=== PATIENT | male | born 1960 | race Caucasian/White ===

== ENCOUNTER 2019-02-03 11:22 | Inpatient (IN) | payer BC, OTHER ==
[~2019-02-03] VITALS: Ht 185.4 cm; Wt 113.7 kg
[2019-02-03] VITALS (11 sets, daily range): BP systolic 80–95; BP diastolic 52–70
[~2019-02-03 11:22] MED LIST: ETOMIDATE IV SOLN 20 MG/10 ML VIAL IV ONE; MIDAZOLAM 5 MG/5 ML (VERSED) VIAL IJ ONE; SUCCINYLCHOLINE INJ 100 MG/5 ML SYR INJ ONE
[2019-02-03] MEDS ORDERED: NS IV 1000 ML 1,000 ML ONE (11:43)
[2019-02-03 11:59] LABS: BASOPHILS % (AUTO) 0 % (0-10); EOSINOPHILS % (AUTO) 0 % (0-10); HEMATOCRIT 47 % (40-54); HEMOGLOBIN 15.9 G/DL (13.3-17.7); LYMPHOCYTES % (AUTO) 21 % (12-44); MEAN CORPUSCULAR HEMOGLOBIN 30 PG (25-34); MEAN CORPUSCULAR HGB CONC 34 G/DL (32-36); MEAN CORPUSCULAR VOLUME 87 FL (80-99); MEAN PLATELET VOLUME 10.9 FL (7.4-10.4); MONOCYTES % (AUTO) 9 % (0-12); NEUTROPHILS # (AUTO) 6.6 X 10^3 (1.8-7.8); NEUTROPHILS % (AUTO) 70 % (42-75); PLATELET COUNT 137 10^3/uL (130-400); RED CELL DISTRIBUTION WIDTH 14.1 % (10.0-14.5); WHITE BLOOD COUNT 9.5 10^3/uL (4.3-11.0)
[2019-02-03 12:00] LABS: MONOCYTES # (AUTO) 0.8 X 10^3 (0.0-1.0)
[2019-02-03] MEDS ORDERED: LORazepam INJ 2 MG/ML (ATIVAN) VIAL ONE (12:03)
--- NOTE | 2019-02-03 12:08 | ED General ---
General Chief Complaint: Neurological Problems Stated Complaint: SEIZURE Source of Information: Patient Exam Limitations: No Limitations History of Present Illness Date Seen by Provider: Feb 03, 2019 Time Seen by Provider: 12:05 Initial Comments The patient is a 58-year-old male accompanied by his son here for evaluation of seizure-like activity at home. The patient's son reports that he stated that he felt nauseous and then his arms curled up and he started to shake for about 60- 90 seconds. He fell to the floor gently and then came to very quickly and said that he was tired and wanted to sleep. There is no obvious postictal phase. The patient has no history of seizures. He does report heavy alcohol use but states it is not daily and the last time he drank was over the weekend 4 days ago. On arrival he is noted to be very tachycardic and hypoxic. He is placed on oxygen and monitors. He denies any history of pulmonary or cardiac problems. He does report a history of diabetes. He is alert, anxious, but appears to be in no distress at this time. He denies fevers or chills, chest pain, headache, vision changes, focal weakness or numbness, abdominal or back pain, rash, neck pain or stiffness, light sensitivity, recent head injury, or syncope. Timing/Duration: 1 Hour Severity: Moderate Allergies and Home Medications Allergies Coded Allergies: No Known Drug Allergies (Unverified , 02/03/19) Patient Home Medication List Home Medication List Reviewed: Yes Review of Systems Review of Systems Constitutional: no symptoms reported EENTM: no symptoms reported Respiratory: no symptoms reported Cardiovascular: no symptoms reported Gastrointestinal: no symptoms reported Genitourinary: no symptoms reported Musculoskeletal: no symptoms reported Skin: no symptoms reported Psychiatric/Neurological: Anxiety, Other (seizure-like activity) Hematologic/Lymphatic: No Symptoms Reported Immunological/Allergic: no symptoms reported All Other Systems Reviewed Negative Unless Noted: Yes Past Dofyasb-Iapxzq-Gncpzm Hx Past Med/Social Hx: Reviewed Nursing Past Med/Soc Hx Physical Exam Vital Signs Vital Signs - First Documented 02/03/19 11:45 Temp 100.2 Pulse 138 Resp 22 B/P (MAP) 185/93 (123) Pulse Ox 92 O2 Flow Rate 3.00 Capillary Refill : Height, Weight, BMI Height: '" Weight: lbs. oz. kg; BMI Method: General Appearance: No Apparent Distress, WD/WN, Anxious HEENT: PERRL/EOMI, TMs Normal, Normal ENT Inspection, Pharynx Normal Neck: Full Range of Motion, Non Tender, Supple Respiratory: Chest Non Tender, Lungs Clear, Normal Breath Sounds, No Accessory Muscle Use, No Respiratory Distress Cardiovascular: Regular Rate, Rhythm, No Edema, No Murmur, Tachycardia Gastrointestinal: Normal Bowel Sounds, No Pulsatile Mass, Non Tender Back: Normal Inspection, No CVA Tenderness, No Vertebral Tenderness Extremity: Normal Capillary Refill, Normal Inspection, Normal Range of Motion, Non Tender, No Pedal Edema Neurologic/Psychiatric: Alert, Oriented x3, No Motor/Sensory Deficits, Normal Mood/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, 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 Norm as Tested, Other (appears anxious and jittery) Skin: Normal Color, Warm/Dry Focused Exam Lactate Level 02/03/19 12:00: Lactic Acid Level 1.79 Lactic Acid Level Laboratory Tests Test 02/03/19 12:00 Lactic Acid Level 1.79 MMOL/L (0.50-2.00) Procedures/Interventions Date of ETT Placement: Feb 03, 2019 Time of ETT Placement: 14:35 Intubation Method: orotracheal Tube Size: 7.5 Medications: Etomidate, Succinylcholine Positive End Tide CO2: Yes Breath Sounds after Intubation: bilateral-equal Intubation Complications: no complications Post Intubation Xray: Yes Progress/Results/Core Measures Suspected Sepsis SIRS Temperature: Pulse: Respiratory Rate: Laboratory Tests 02/03/19 11:46: White Blood Count 9.5 Blood Pressure / Mean: 02/03/19 12:00: Lactic Acid Level 1.79 Laboratory Tests 02/03/19 11:46: Creatinine 0.82, Platelet Count 137, Total Bilirubin 0.9 Results/Orders Lab Results Laboratory Tests Test 02/03/19 11:38 02/03/19 11:46 02/03/19 12:00 02/03/19 12:37 Range/Units Glucometer 245 H 70-110 MG/DL White Blood Count 9.5 4.3-11.0 10^3/uL Red Blood Count 5.34 4.35-5.85 10^6/uL Hemoglobin 15.9 13.3-17.7 G/DL Hematocrit 47 40-54 % Mean Corpuscular Volume 87 80-99 FL Mean Corpuscular Hemoglobin 30 25-34 PG Mean Corpuscular Hemoglobin Concent 34 32-36 G/DL Red Cell Distribution Width 14.1 10.0-14.5 % Platelet Count 137 130-400 10^3/uL Mean Platelet Volume 10.9 H 7.4-10.4 FL Neutrophils (%) (Auto) 70 42-75 % Lymphocytes (%) (Auto) 21 12-44 % Monocytes (%) (Auto) 9 0-12 % Eosinophils (%) (Auto) 0 0-10 % Basophils (%) (Auto) 0 0-10 % Neutrophils # (Auto) 6.6 1.8-7.8 X 10^3 Lymphocytes # (Auto) 2.0 1.0-4.0 X 10^3 Monocytes # (Auto) 0.8 0.0-1.0 X 10^3 Eosinophils # (Auto) 0.0 0.0-0.3 10^3/uL Basophils # (Auto) 0.0 0.0-0.1 10^3/uL D-Dimer 0.90 H 0.00-0.49 UG/ML Sodium Level 132 L 135-145 MMOL/L Potassium Level 3.0 L 3.6-5.0 MMOL/L Chloride Level 87 L 98-107 MMOL/L Carbon Dioxide Level 23 21-32 MMOL/L Anion Gap 22 H 5-14 MMOL/L Blood Urea Nitrogen 27 H 7-18 MG/DL Creatinine 0.82 0.60-1.30 MG/DL Estimat Glomerular Filtration Rate > 60 BUN/Creatinine Ratio 33 Glucose Level 290 H 70-105 MG/DL Calcium Level 9.3 8.5-10.1 MG/DL Corrected Calcium 8.5-10.1 MG/DL Magnesium Level 1.8 1.6-2.4 MG/DL Total Bilirubin 0.9 0.1-1.0 MG/DL Aspartate Amino Transf (AST/SGOT) 74 H 5-34 U/L Alanine Aminotransferase (ALT/SGPT) 73 H 0-55 U/L Alkaline Phosphatase 71 40-136 U/L Ammonia 60 H 11-32 UMOL/L Total Creatine Kinase 703 H 30-200 U/L Creatine Kinase MB 9.3 *H <6.6 NG/ML Troponin I < 0.30 <0.30 NG/ML Pro-B-Type Natriuretic Peptide 19.0 <75.0 PG/ML Total Protein 7.7 6.4-8.2 GM/DL Albumin 4.6 H 3.2-4.5 GM/DL Amylase Level 28 25-125 U/L Lipase 18 8-78 U/L Serum Alcohol < 10 <10 MG/DL Lactic Acid Level 1.79 0.50-2.00 MMOL/L Blood Gas Puncture Site LT RAD Blood Gas Patient Temperature 100.4 Arterial Blood pH 7.16 *L 7.37-7.43 Arterial Blood Partial Pressure CO2 90 *H 35-45 MMHG Arterial Blood Partial Pressure O2 67 L 79-93 MMHG Arterial Blood HCO3 32 H 23-27 MMOL/L Arterial Blood Total CO2 34.9 H 21.0-31.0 MMOL/L Arterial Blood Oxygen Saturation 87 L 94-100 % Arterial Blood Base Excess 1.0 -2.5-2.5 MMOL/L Eliecer Test YES-POS Blood Gas Ventilator Setting NO Blood Gas Inspired Oxygen 3L My Orders Orders - AMY SCRUGGS DO Ct Head Wo (02/03/19 11:39) Alcohol (02/03/19 11:39) Ammonia (02/03/19 11:39) Amylase (02/03/19 11:39) Arterial Blood Gas (02/03/19 11:39) Cbc With Automated Diff (02/03/19 11:39) Comprehensive Metabolic Panel (02/03/19 11:39) Creatine Kinase (02/03/19 11:39) Creatine Kinase Mb (02/03/19 11:39) Lactic Acid Analyzer (02/03/19 11:39) Lipase (02/03/19 11:39) Troponin I (02/03/19 11:39) Blood Culture (02/03/19 11:39) Accucheck Stat ONCE (02/03/19 11:39) Probnp Fs (02/03/19 11:39) Fibrin Degradation Products (02/03/19 11:39) Chest 1 View Ap/Pa Only (02/03/19 11:39) Production Machine Operator (02/03/19 11:43) Continuous Pulse Ox (02/03/19 11:43) Ns Iv 1000 Ml (Sodium Chloride 0.9%) (02/03/19 11:43) Ns Iv 1000 Ml (Sodium Chloride 0.9%) (02/03/19 12:15) Lorazepam Injection (Ativan Injection) (02/03/19 12:15) Lorazepam Injection (Ativan Injection) (02/03/19 12:03) Ct Angio Chest W (02/03/19 12:39) Diltiazem Injection (Cardizem Injection) (02/03/19 12:45) Ns Iv 1000 Ml (Sodium Chloride 0.9%) (02/03/19 12:45) Lorazepam Injection (Ativan Injection) (02/03/19 12:45) Iohexol Injection (Omnipaque 350 Mg/Ml 1 (02/03/19 13:00) Received Contrast (Hold Metformin- Contr (02/03/19 13:00) Sodium Chloride Flush (Catheter Flush Sy (02/03/19 13:00) Ns (Ivpb) (Sodium Chloride 0.9% Ivpb Bag (02/03/19 13:00) Potassium Cl 10meq/50ml Ivpb (Kcl 10 Meq (02/03/19 13:15) Potassium Chloride (Tablet) (K Dur Table (02/03/19 13:15) Magnesium (02/03/19 13:12) Bipap (Bilevel) Set Up (02/03/19 13:20) Etomidate Injection (Amidate Injection) (02/03/19 14:30) Succinylcholine Injection (Succinylcholi (02/03/19 14:30) Midazolam Injection (Versed Injection) (02/03/19 14:45) Ns (Ivpb) (Sodium C... W/Midazolam Injec (02/03/19 14:45) Petersen Cath (02/03/19 14:43) Chest 1 View Ap/Pa Only (02/03/19 14:46) Propofol Drip (Icu) (Diprivan Drip (Icu) (02/03/19 14:43) Midazolam Injection (Versed Injection) (02/03/19 15:14) Medications Given in ED Current Medications Medications Dose Ordered Sig/Mino Route Start Time Stop Time Status Last Admin Dose Admin Diltiazem HCl 20 mg ONCE ONCE IVP 02/03/19 12:45 02/03/19 12:46 DC 02/03/19 12:50 20 MG Iohexol 125 ml ONCE ONCE IV 02/03/19 13:00 02/03/19 13:01 DC 02/03/19 13:57 125 ML Lorazepam 1 mg ONCE ONCE IVP 02/03/19 12:45 02/03/19 12:46 DC 02/03/19 12:48 1 MG Lorazepam 2 mg ONCE ONCE IVP 02/03/19 12:15 02/03/19 12:16 DC 02/03/19 12:10 2 MG Sodium Chloride 10 ml NEEDED PRN IV 02/03/19 13:00 02/03/19 13:57 10 ML Sodium Chloride 100 ml ONCE ONCE IV 02/03/19 13:00 02/03/19 13:01 DC 02/03/19 13:57 100 ML Vital Signs/I&O 02/03/19 11:45 Temp 100.2 Pulse 138 Resp 22 B/P (MAP) 185/93 (123) Pulse Ox 92 O2 Flow Rate 3.00 Capillary Refill : Progress Note : Progress Note Prior to intubation discussed this plan with the pt's who agreed. @1520 - Dr. Galvin here to assist EMS with the transport. @1540 - Pt leaving with EMS now. ECG EKG : Comment Sinus tachycardia, rate of 137, normal axis, S1Q3T3 strain pattern is noted, right bundle-branch block is present, no acute ischemic findings noted, no STEMI, reviewed and interpreted by myself Critical Care Note Critical Care Start Time: 14:00 Stop Time: 15:15 Total Time (minutes) 75 Progress Interpretation of ABG and other labs Response to treatment Intubation Discussion with multiple physicians Departure Communication (Admissions) Time/Spoke to Admitting Phy: 13:50 @1350 - Dr. Arnett accepts the admission at [facility] but would first like the case d/w Dr. Hernandez (pulm) given the concerning ABG findings. @1355 - Dr. Hernandez suggests to intubate the pt prior to transfer to the ICU and accepts the pulm consult. Impression Primary Impression: Hypercapnic respiratory failure Additional Impressions: Alcohol abuse Seizure Hypokalemia Disposition: XFER SHT-TRM HOSP Condition: Stable Admissions Decision to Admit Reason: Admit from ER (General) Decision to Admit/Date: Feb 03, 2019 Time/Decision to Admit Time: 15:40 Transfer Time Spoke to Accepting Phy: 13:[address] Arnett accepts the transfer to [facility] with Dr. Hernandez to consult. Dr. Hernandez requests that the pt be intubated given the ABG findings. Transfer Time: 15:40 Transfer Facility: [facility] Method of Transfer: EMS Departure-Patient Inst. Referrals: SIDDHARTH WALTERS MD (PCP/Family) Primary Care Physician AMY SCRUGGS DO Feb 03, 2019 12:08
[2019-02-03] MEDS ORDERED: NS IV 1000 ML 1,000 ML IV SCH ×3 (12:15→22:30)
[2019-02-03] MEDS ORDERED: LORazepam INJ 2 MG/ML (ATIVAN) VIAL IVP ONE ×2 (12:15→12:45)
[2019-02-03 12:32] LABS: CARBON DIOXIDE 23 MMOL/L (21-32); CHLORIDE 87 MMOL/L (98-107); SODIUM 132 MMOL/L (135-145)
[2019-02-03 12:33] LABS: ALANINE AMINOTRANSFERASE 73 U/L (0-55); ALBUMIN 4.6 GM/DL (3.2-4.5); ALKALINE PHOSPHATASE 71 U/L (40-136); AMYLASE 28 U/L (25-125); BILIRUBIN,TOTAL 0.9 MG/DL (0.1-1.0); BUN/CREATININE RATIO 33; CALCIUM 9.3 MG/DL (8.5-10.1); CREATININE SERUM 0.82 MG/DL (0.60-1.30); GFR ESTIMATED > 60; GLUCOSE 290 MG/DL (70-105); LIPASE 18 U/L (8-78); TOTAL PROTEIN 7.7 GM/DL (6.4-8.2)
--- NOTE | 2019-02-03 12:35 | Diagnostic Imaging Report ---
INDICATION: Seizure. Noncontrast brain CT is performed. There is no previous study for comparison. There are no extra-axial fluid collections. No intracranial hemorrhage. No intracranial mass or mass effect. No midline shift. Ventricles are normal in size and position. There is some motion artifact. There is no discrete parenchymal abnormality of the brain seen. Calvarial windows appear unremarkable. There is a trace of fluid in the maxillary sinuses on both sides. IMPRESSION: There is some motion artifact, but no acute intracranial abnormality is seen. There is a trace of fluid in the maxillary sinuses. Dictated by: Dictated on workstation # [id number]
--- NOTE | 2019-02-03 12:43 | Diagnostic Imaging Report ---
INDICATION: Seizure. COMPARISON: None. FINDINGS: Two frontal radiographic views of the chest were obtained and demonstrate normal heart size and pulmonary vascularity. The lungs are well aerated and clear. No large pleural effusion or pneumothorax is seen. The visualized osseous structures show no acute abnormalities. IMPRESSION: 1. No acute cardiopulmonary process. Dictated by: Dictated on workstation # [id number]
[2019-02-03] MEDS ORDERED: DILTIAZEM 25 MG/5 ML INJ (CARDIZEM) VIAL IVP ONE (12:45)
[2019-02-03] MEDS ORDERED: HOLD METFORMIN - RECEIVED CONTRAST 20 ML VIAL IV SCH (13:00)
[2019-02-03] MEDS ORDERED: IOHEXOL 350 MG/ML 150 ML (OMNIPAQUE 350) VIAL IV ONE (13:00)
[2019-02-03] MEDS ORDERED: CATHETER FLUSH 10 ML SYR IV PRN ×2 (13:00→17:15)
[2019-02-03] MEDS ORDERED: NS 100 ML (IVPB) BAG IV ONE (13:00)
[2019-02-03 13:15] LABS: ABG PH 7.16 (7.37-7.43)
[2019-02-03] MEDS ORDERED: KCL 20 MEQ TAB (K-DUR) PO ONE (13:15)
[2019-02-03 13:16] LABS: ABG OXYGEN SATURATION 87 % (94-100); ABG PCO2 90 MMHG (35-45); ABG PO2 67 MMHG (79-93); ABG TCO2 34.9 MMOL/L (21.0-31.0); ALLENS TEST YES-POS; INSPIRED O2 3L; PATIENT TEMP 100.4; VENTILATOR NO
[2019-02-03] MEDS: POTASSIUM CL 10MEQ/50ML IVPB 50 ML IV SCH ×4 (14:00→20:43)
--- NOTE | 2019-02-03 14:10 | NUR ---
Patient placed on bipap at this time /5 with 100% FIO2.
[2019-02-03] MEDS: NS IV 1000 ML 1,000 ML IV SCH ×2 (14:15→17:38)
--- NOTE | 2019-02-03 14:25 | NUR ---
1425- Patient moved to room 3 via cart to perform intubation. Patient on bipap while being moved to new room. 1426- Dr Abreu to room. Orders received for 100 mg succinylcholine and 20 mg etomidate for intubation. 1430- Patient given succinylcholine and etomidate. 1432- Patient intubated by Dr Abreu with 8 ETT, 25 at lip. Color change noted to CO2 detector. Bilateral breath sounds heard on auscultation. 1435- OG tube placed. 1436- mitchell catheter placed. 1444- Received order from Dr Abreu for 10 mg versed for continued sedation. Given at this time. 1445- returned to room. Updated on patient condition.
--- NOTE | 2019-02-03 14:26 | Diagnostic Imaging Report ---
PROCEDURE: CT angiography of the chest with contrast. TECHNIQUE: Multiple contiguous axial images were obtained through the chest after uneventful bolus administration of intravenous contrast. 3D reconstructed CTA MIP acquisitions were also performed. Auto Exposure Controls were utilized during the CT exam to meet ALARA standards for radiation dose reduction. INDICATION: Hypoxia. FINDINGS: No comparison available. There is no pulmonary embolism. Heart size is normal. No pericardial effusion. Aorta is normal in caliber. No axillary, supraclavicular, or mediastinal lymphadenopathy. Limited views of the upper abdomen reveal hepatic steatosis. There is mild pulmonary edema as evidenced by septal line thickening dependently in the lung bases. No pneumonia. No pneumothorax. There are no suspicious osseous lesions. IMPRESSION: 1. No pulmonary embolism. 2. Mild pulmonary edema. 3. Hepatic steatosis. Dictated by: Dictated on workstation # [id number]
[2019-02-03] MEDS ORDERED: ETOMIDATE IV SOLN 20 MG/10 ML VIAL IV ONE (14:30)
[2019-02-03] MEDS ORDERED: SUCCINYLCHOLINE INJ 100 MG/5 ML SYR INJ ONE (14:30)
--- NOTE | 2019-02-03 14:35 | NUR ---
Vent settings FIO2 100%, peep 5, Tidal volume 550, rate 18.
[2019-02-03] MEDS ORDERED: PROPOFOL DRIP (ICU) 100 ML IV ONE (14:43)
[2019-02-03] MEDS ORDERED: MIDAZOLAM INJECTION FOR DRIPS 50 MG in NS (IVPB) 90 ML IV SCH (14:45)
[2019-02-03] MEDS ORDERED: MIDAZOLAM 10 MG/2 ML (VERSED) VIAL IVP ONE (14:45)
[2019-02-03] MEDS: PROPOFOL DRIP (ICU) 100 ML IV SCH ×3 (14:45→22:52)
[2019-02-03 14:51] LABS: AMMONIA 60 UMOL/L (11-32); CREATINE KINASE 703 U/L (30-200)
[2019-02-03] MEDS ORDERED: MIDAZOLAM 5 MG/5 ML (VERSED) VIAL ONE ×2 (15:14→15:31)
[2019-02-03 15:17] LABS: CREATINE KINASE MB 9.3 NG/ML (<6.6)
--- NOTE | 2019-02-03 15:17 | Diagnostic Imaging Report ---
PATIENT HISTORY: Intubation. TECHNIQUE: Frontal view of the chest. COMPARISON: 12:07 p.m. on the same day. FINDINGS: Lung volumes are low. The endotracheal tube is approximately 2.5 cm from the rosalia. There is bibasilar atelectasis. No pleural effusion or pneumothorax is seen. IMPRESSION: The endotracheal tube is approximately 2.5 cm from the rosalia. Low lung volumes with bibasilar atelectasis. Dictated by: Dictated on workstation # [id number]
--- NOTE | 2019-02-03 15:45 | NUR ---
Patient transferred at this time to [facility], room CU10. Dr Galvin and [facility] transporting patient.
--- NOTE | 2019-02-03 16:18 | NUR ---
BENNETT LARKIN admitted to room CU10-1, with an admitting diagnosis of ALCOHOL DETOX, on 02/03/19 from [place] via [facility], accompanied by STAFF .BENNETT LARKIN introduced to surroundings, call light, bed controls, phone, TV, temperature control, lights, meal times, smoking policy, visitor policy, side rail policy, bathrooms and showers. Patient Rights given to patient in the handbook. BENNETT LARKIN verbalizes understanding that [facility] is not responsible for the loss or damage to any personal effects or valuables that are kept in the patients posession during their hospitalization. The following Patient Care Plans were discussed with the PATIENT/ : Discharge Planning, ANXIETY,FLUID VOLUME DEFICIT, and IMPAIRED GAS EXCHANGE. BENNETT LARKIN verbalizes understanding of Interdisciplinary Patient Education. Patient and/or family were informed about the Rapid Response Team and its purpose.
[2019-02-03] MEDS: DEXMEDETOMIDINE INJECTION 1,000 MCG in NS (IVPB) 240 ML IV SCH ×2 (16:41→20:39)
--- NOTE | 2019-02-03 16:58 | Diagnostic Imaging Report ---
INDICATION: Endotracheal tube placement. COMPARISON: Earlier the same day. EXAMINATION: Single frontal radiographic view of the chest was obtained. FINDINGS: Indwelling endotracheal tube with tip approximately 2.5 cm above the rosalia. Gastric tube is seen coiled within the stomach. Lungs show low inspiratory volumes with probable bibasilar atelectasis. Small effusions cannot be excluded. No pneumothorax is seen on either side. Cardiac silhouette and pulmonary vasculature are within normal limits. Osseous structures show no gross acute abnormality. IMPRESSION: 1. Low lung volumes with probable bibasilar atelectasis. 2. Lines and tubes as above. Dictated by: Dictated on workstation # [id number]
--- NOTE | 2019-02-03 17:04 | NUR ---
[facility] CONTACTED ABOUT VENT MANAGEMENT AND POTASSIUM REPLACEMENT
[2019-02-03 17:22] LABS: ABG BASE EXCESS -1.6 MMOL/L (-2.5-2.5); ABG OXYGEN SATURATION 96 % (94-100); ABG PCO2 47 MMHG (35-45); ABG PO2 87 MMHG (79-93); ABG TCO2 25.2 MMOL/L (21.0-31.0)
[2019-02-03 17:24] LABS: ABG PH 7.32 (7.37-7.43); ALLENS TEST POSITIVE; PATIENT TEMP 97.6; VENTILATOR YES
[2019-02-03] MEDS ORDERED: MIDAZOLAM 5 MG/5 ML (VERSED) VIAL IVP ONE ×2 (17:30→17:45)
[2019-02-03 17:45] LABS: BASOPHILS % (AUTO) 0 % (0-10); EOSINOPHILS % (AUTO) 0 % (0-10); HEMATOCRIT 40 % (40-54); HEMOGLOBIN 13.6 G/DL (13.3-17.7); LYMPHOCYTES # (AUTO) 0.5 X 10^3 (1.0-4.0); LYMPHOCYTES % (AUTO) 5 % (12-44); MEAN CORPUSCULAR HEMOGLOBIN 30 PG (25-34); MEAN CORPUSCULAR HGB CONC 34 G/DL (32-36); MEAN CORPUSCULAR VOLUME 88 FL (80-99); MEAN PLATELET VOLUME 10.3 FL (7.4-10.4); MONOCYTES # (AUTO) 0.9 X 10^3 (0.0-1.0); MONOCYTES % (AUTO) 9 % (0-12); NEUTROPHILS # (AUTO) 8.5 X 10^3 (1.8-7.8); NEUTROPHILS % (AUTO) 86 % (42-75); PLATELET COUNT 107 10^3/uL (130-400); RED CELL DISTRIBUTION WIDTH 14.4 % (10.0-14.5)
[2019-02-03 18:01] LABS: BUN/CREATININE RATIO 25; CALCIUM 7.5 MG/DL (8.5-10.1); CARBON DIOXIDE 21 MMOL/L (21-32); CHLORIDE 99 MMOL/L (98-107); CREATININE SERUM 0.75 MG/DL (0.60-1.30); GFR ESTIMATED > 60; GLUCOSE 214 MG/DL (70-105); POTASSIUM 3.2 MMOL/L (3.6-5.0); SODIUM 134 MMOL/L (135-145)
[2019-02-03] MEDS ORDERED: inSUlin ASPART (NovoLOG) 1 UNIT/0.01 ML (CHARGE PER UNIT) ONE (18:02)
[2019-02-03] MEDS: inSUlin ASPART (NovoLOG) 1 UNIT/0.01 ML (CHARGE PER UNIT) SQ SCH (18:12)
[2019-02-03 18:49] LABS: BAND NEUTROPHILS 8 %; LYMPHOCYTES % (MANUAL) 4 %; MONOCYTES % (MANUAL) 10 %; NEUTROPHILS % (MANUAL) 78 %
[2019-02-03 18:50] LABS: RBC MORPH NORMAL
[2019-02-03] MEDS: CATHETER FLUSH 10 ML SYR IV SCH (20:37)
[2019-02-03] MEDS: PANTOPRAZOLE 40 MG (PROTONIX) VIAL IV SCH (20:37)
[2019-02-04] VITALS (28 sets, daily range): BP systolic 93–119; BP diastolic 65–83
[2019-02-04] MEDS: inSUlin ASPART (NovoLOG) 1 UNIT/0.01 ML (CHARGE PER UNIT) SQ SCH ×5 (01:59→23:29)
[2019-02-04] MEDS: DEXMEDETOMIDINE INJECTION 1,000 MCG in NS (IVPB) 240 ML IV SCH ×5 (02:00→22:40)
[2019-02-04 03:41] LABS: ABG BASE EXCESS -4.2 MMOL/L (-2.5-2.5); ABG OXYGEN SATURATION 95 % (94-100); ABG PCO2 39 MMHG (35-45); ABG PO2 76 MMHG (79-93); ABG TCO2 21.7 MMOL/L (21.0-31.0)
[2019-02-04] MEDS: NS IV 1000 ML 1,000 ML IV SCH (03:42)
[2019-02-04 03:43] LABS: ALLENS TEST POSITIVE; INSPIRED O2 35; PATIENT TEMP 98.8; VENTILATOR YES
[2019-02-04 03:44] LABS: ABG PH 7.34 (7.37-7.43)
[2019-02-04] MEDS ORDERED: THIAMINE INJECTION 100 MG, FOLIC ACID INJECTION 1 MG, MAGNESIUM SULFATE 2 GM, VITAMIN M... IV SCH ×5 (04:21)
--- NOTE | 2019-02-04 04:25 | Pulmonary Consultation ---
History of Present Illness History of Present Illness Date of Consultation 02/04/19 04:19 Time Seen by Provider: 04:19 Date of Admission History of Present Illness 58yo with hx of alcohol use presented to ED secondary to seizure like activity while at home. Pt was found to be hypotensive and lethargic while in ED. He was intubated to protect airway for transfer here from [facility]. PT is currently unresponsive and sedated on vent. All information obtained form chart. Patient's son reports that he stated that he felt nauseous and then his arms curled up and he started to shake for about 60-90 seconds. He fell to the floor gently and then came to very quickly and said that he was tired and wanted to sleep. There is no obvious postictal phase. The patient has no history of seiz ures. He does report heavy alcohol use but states it is not daily and the last time he drank was over the weekend 4 days ago. On arrival he is noted to be very tachycardic and hypoxic. He is placed on oxygen and monitors. He denies any history of pulmonary or cardiac problems. He does report a history of diabetes. Allergies and Home Medications Allergies Coded Allergies: No Known Drug Allergies (Unverified , 02/03/19) Past Lxnnzet-Vfuuux-Sflisw Hx Past Med/Social Hx: Reviewed Nursing Past Med/Soc Hx Patient Social History Alcohol Use: Regular Use Alcohol Beverage of Choice: Vodka Recreational Drug Use: No Smoking Status: Former Smoker 2nd Hand Smoke Exposure: No Recent Foreign Travel: No Contact w/Someone Who Travel: No Recent Infectious Disease Expo: No Review of Systems Time Seen by Provider: 05:35 Sepsis Event Evaluation Height, Weight, BMI Height: 6'1.00" Weight: 269lbs. 14.0oz. 122.059958sx; 35.6 BMI Method:Stated Exam Exam Vital Signs Date Time Temp Pulse Resp B/P (MAP) Pulse Ox O2 Delivery O2 Flow Rate FiO2 02/04/19 04:00 76 20 103/70 (81) 95 Mechanical Ventilator 30.00 02/04/19 03:00 75 18 103/76 (85) 96 Mechanical Ventilator 30.00 02/04/19 02:00 76 16 109/75 (86) 96 Mechanical Ventilator 30.00 02/04/19 01:50 96 22 97 35 02/04/19 01:00 75 22 94/65 (75) 98 Mechanical Ventilator 30.00 02/04/19 00:58 76 02/04/19 00:57 100 Mechanical Ventilator 35 02/04/19 00:30 97.8 02/04/19 00:00 73 24 112/83 (93) 98 Mechanical Ventilator 30.00 02/03/19 23:00 75 24 85/57 (66) 98 Mechanical Ventilator 30.00 02/03/19 22:52 75 21 93/62 100 Mechanical Ventilator 35.00 02/03/19 22:00 76 24 87/61 (70) 97 Mechanical Ventilator 30.00 02/03/19 21:00 71 22 92/63 (73) 90 Mechanical Ventilator 30.00 02/03/19 20:49 Mechanical Ventilator 30.00 02/03/19 20:45 76 19 98 35 02/03/19 20:38 76 20 92/63 97 Mechanical Ventilator 35.00 02/03/19 20:05 100 Mechanical Ventilator 35 02/03/19 20:00 97.6 02/03/19 20:00 76 17 89/60 (70) 97 Mechanical Ventilator 40.00 02/03/19 20:00 97.6 02/03/19 19:00 76 18 95/70 (78) 97 Mechanical Ventilator 40.00 02/03/19 18:09 Mechanical Ventilator 40.00 02/03/19 18:05 75 17 99 40 02/03/19 18:03 107 02/03/19 18:00 75 15 88/64 (72) 98 Mechanical Ventilator 50.00 02/03/19 17:33 Mechanical Ventilator 50 02/03/19 17:00 84 16 80/52 (61) 96 Mechanical Ventilator 50.00 02/03/19 16:37 96 18 89/54 (66) 93 Mechanical Ventilator 50.00 02/03/19 16:32 97.6 02/03/19 16:20 87 16 95 50 02/03/19 15:30 99.0 122 20 135/80 (98) 98 Mechanical Ventilator 02/03/19 14:45 98 02/03/19 11:45 100.2 138 22 185/93 (123) 92 3.00 I & O 02/04/19 06:59 Intake Total 5470 ml Output Total 520 ml Balance 4950 ml Height & Weight Height: 6'1.00" Weight: 269lbs. 14.0oz. 122.081213gm; 35.6 BMI Method:Stated General Appearance: WD/WN, Other (sedated on vent) HEENT: PERRL/EOMI, Normal ENT Inspection, Pharynx Normal Neck: Full Range of Motion, Non Tender, Supple Respiratory: Chest Non Tender, Lungs Clear, Normal Breath Sounds, No Accessory Muscle Use, No Respiratory Distress Cardiovascular: Regular Rate, Rhythm, No Edema, No Murmur, Tachycardia Capillary Refill: Less Than 3 Seconds Extremity: Normal Capillary Refill, Normal Inspection, Normal Range of Motion, Non Tender, No Pedal Edema Neurologic/Psychiatric: Alert, Oriented x3, No Motor/Sensory Deficits, Normal Mood/Affect, 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 -Start TF Hypotension -IVF -Monitor Alcohol withdrawal with questionable seizure activity -Banana bag -Continue to monitor Metabolic acidosis -IVF -Repeat LA Elevated LFTs and ammonia level -Check hep panel -Start lactulose Hypokalemia, hypomag -replace RAFAEL SOUSA DO Feb 04, 2019 04:24
[2019-02-04] MEDS ORDERED: POTASSIUM CHLORIDE INJ 20 MEQ in D5 NS 1000 ML IV SOLUTION 1,000 ML IV SCH (04:30)
[2019-02-04] MEDS ORDERED: NS IV 1000 ML 1,000 ML IV SCH (04:30)
[2019-02-04] MEDS ORDERED: D5 NS W/KCL 20 MEQ/L 1,000 ML IV ONE (04:35)
[2019-02-04 04:41] LABS: BASOPHILS % (AUTO) 0 % (0-10); EOSINOPHILS % (AUTO) 0 % (0-10); HEMATOCRIT 36 % (40-54); HEMOGLOBIN 12.5 G/DL (13.3-17.7); LYMPHOCYTES # (AUTO) 0.5 X 10^3 (1.0-4.0); LYMPHOCYTES % (AUTO) 7 % (12-44); MEAN CORPUSCULAR HEMOGLOBIN 31 PG (25-34); MEAN CORPUSCULAR HGB CONC 35 G/DL (32-36); MEAN CORPUSCULAR VOLUME 90 FL (80-99); MONOCYTES # (AUTO) 0.7 X 10^3 (0.0-1.0); MONOCYTES % (AUTO) 10 % (0-12); NEUTROPHILS # (AUTO) 6.2 X 10^3 (1.8-7.8); NEUTROPHILS % (AUTO) 83 % (42-75); PLATELET COUNT 83 10^3/uL (130-400); RED CELL DISTRIBUTION WIDTH 14.7 % (10.0-14.5); WHITE BLOOD COUNT 7.5 10^3/uL (4.3-11.0)
[2019-02-04 04:53] LABS: INR 1.1 (0.8-1.4); PROTHROMBIN TIME PATIENT 14.9 SEC (12.2-14.7)
[2019-02-04 05:02] LABS: BUN/CREATININE RATIO 33; CALCIUM 6.3 MG/DL (8.5-10.1); CARBON DIOXIDE 13 MMOL/L (21-32); CHLORIDE 107 MMOL/L (98-107); CREATININE SERUM 0.67 MG/DL (0.60-1.30); GFR ESTIMATED > 60; GLUCOSE 170 MG/DL (70-105); MAGNESIUM 1.4 MG/DL (1.6-2.4); PHOSPHORUS 2.7 MG/DL (2.3-4.7); SODIUM 135 MMOL/L (135-145)
[2019-02-04] MEDS ORDERED: MAGNESIUM 4 GM/100 ML IVPB 100 ML IV ONE (05:15)
[2019-02-04] MEDS ORDERED: POTASSIUM CL 10MEQ/50ML IVPB 50 ML IV ONE ×3 (05:15→07:45)
[2019-02-04] MEDS: MAGNESIUM 1 GM/100 ML IVPB 100 ML IV SCH (05:28)
[2019-02-04] MEDS ORDERED: D5 1/2 NS 1000 ML IV SOLUTION 0 ML IV ONE (06:15)
[2019-02-04] MEDS: KCL 20 MEQ TAB (K-DUR) PO SCH (06:35)
[2019-02-04] MEDS: CATHETER FLUSH 10 ML SYR IV SCH ×3 (06:35→22:38)
[2019-02-04] MEDS: POTASSIUM CL 10MEQ/50ML IVPB 50 ML IV SCH (06:35)
[2019-02-04] MEDS: PROPOFOL DRIP (ICU) 100 ML IV SCH ×5 (06:41→22:39)
--- NOTE | 2019-02-04 07:42 | Diagnostic Imaging Report ---
EXAM: CHEST 1 VIEW, AP/PA ONLY INDICATION: Ventilator management. Intubated. COMPARISON: 02/03/2019. FINDINGS: Examination limited by low lung volumes. This accentuates the heart size. Normal central pulmonary vascularity. ETT tip midway between the level of the clavicles and rosalia. The tip of the NG tube is not seen. Small left pleural effusion. No dense consolidation. No pneumothorax. IMPRESSION: 1. Markedly low lung volumes. 2. ETT tip in the expected position. The tip of the NG tube is not seen. Dictated by: Dictated on workstation # [id number]
[2019-02-04] MEDS: LORazepam INJ 2 MG/ML (ATIVAN) VIAL IVP PRN ×2 (07:43→16:18)
[2019-02-04] MEDS: PANTOPRAZOLE 40 MG (PROTONIX) VIAL IV SCH ×2 (07:44→22:38)
[2019-02-04] MEDS: THIAMINE INJECTION 100 MG, FOLIC ACID INJECTION 1 MG, MAGNESIUM SULFATE 2 GM, VITAMIN M... IV SCH ×5 (07:44)
[2019-02-04] MEDS: D5 NS W/KCL 20 MEQ/L 1,000 ML IV SCH ×4 (07:45→23:30)
[2019-02-04] MEDS: LACTULOSE SYRUP 10GM/15ML (ENULOSE) 30ML UDC PO SCH ×2 (07:45→22:37)
--- NOTE | 2019-02-04 07:53 | NUR ---
PT TO RECEIVE TOTAL OF 80MEQ OF IV KCL AND 4GMS IV MAG THIS AM.
--- NOTE | 2019-02-04 08:02 | Physical Therapy Progress Note ---
Therapy Progress Note Patient is currently on mechanical ventilator. PT will continue to monitor patient status and begin when able to actively participate with skilled therapy. GREGG DANIELLE PT Feb 04, 2019 08:02
[2019-02-04 08:03] LABS: BILIRUBIN,URINE NEGATIVE (NEGATIVE); CLARITY,URINE CLEAR; COLOR,URINE YELLOW; GLUCOSE, URINE (UA) 4+ (NEGATIVE); KETONES,URINE 4+ (NEGATIVE); LEUKOCYTE ESTERASE ,URINE 1+ (NEGATIVE); NITRITE,URINE NEGATIVE (NEGATIVE); PH,URINE 6 (5-9); PROTEIN,URINE 2+ (NEGATIVE); UROBILINOGEN,URINE NORMAL (NORMAL)
[2019-02-04 08:13] LABS: BACTERIA,URINE TRACE /HPF
--- NOTE | 2019-02-04 08:48 | NUR ---
JEVITY 1.5 STARTED AND RUNNING AT 30 ML/HR. 100 ML FREE WATER Q4 PER DR ORDERS.
--- NOTE | 2019-02-04 10:24 | Occ Therapy Progress Note ---
Therapy Progress Note Order received for OT eval and treat. Chart review completed. Pt currently on mechanical vent. Will continue to monitor pt status and initiate OT eval when pt able to actively participate. PURNIMA CAMARENA OT Feb 04, 2019 10:24
[2019-02-04] MEDS ORDERED: HYDR25TA4 PO (10:40)
[2019-02-04] MEDS ORDERED: METF-399 PO (10:40)
[2019-02-04] MEDS ORDERED: CARV3.122 PO (10:40)
[2019-02-04] MEDS ORDERED: LEVO5TAB12 PO (10:40)
[2019-02-04] MEDS ORDERED: ATOR40TA70 PO (10:40)
[2019-02-04] MEDS ORDERED: INSU100I34 SC (10:40)
[2019-02-04] MEDS ORDERED: MONT10TA24 PO (10:40)
[2019-02-04] MEDS ORDERED: OMEP20CA13 PO (10:40)
[2019-02-04] MEDS ORDERED: CITA40TA11 PO (10:40)
[2019-02-04] MEDS ORDERED: TADA20TA43 PO (10:40)
[2019-02-04] MEDS ORDERED: AMLO-167 PO (10:40)
--- NOTE | 2019-02-04 10:54 | NUR ---
Pt is listed as Religious but he is currently vented and unconscious. His mother at bedside could not verify his Religious preference and seemed surprised by it. Die Maker Apprentice engages mother in therapeutic narration of recent events. and offered prayer and blessing.
--- NOTE | 2019-02-04 10:57 | History & Physical-Hospitalist ---
History of Present Illness HPI/Chief Complaint Chief complaint: Respiratory failure History of present illness: This is a 58-year-old white male clinic patient of Dr. shaffer of [facility] who presented to the [place] ER after syncopal episode. Work-up ensued revealing alcohol withdrawal and respiratory failure with ABG showing pH of 7.1 and CO2 of 90 with CO2 retention. He was emergently intubated moved to [facility] ICU for pulmonary expertise. At this current time mother is at the bedside and she apparently does not know how much alcohol he drinks on a regular basis which seems to be a lifelong addiction issue. We will monitor the situation closely and maintain ventilator. Source: RN/MD, old records Exam Limitations: clinical condition Date Seen 02/04/19 Time Seen by a Provider: 09:30 Attending Physician Debora Arnett Maxwell MD Referring Physician Date of Admission Feb 03, 2019 at 14:25 Home Medications & Allergies Home Medications Reviewed patient Home Medication Reconciliation performed by pharmacy medication reconciliations appliance repair technician and/or nursing. Patients Allergies have been reviewed. Allergies Allergies Coded Allergies No Known Drug Allergies (Unverified02/03/19) Past Culqpjc-Unsyff-Jdvbqh Hx Past Med/Social Hx: Reviewed Nursing Past Med/Soc Hx Patient Social History Alcohol Use: Regular Use Alcohol Beverage of Choice: Vodka Recreational Drug Use: No Smoking Status: Former Smoker 2nd Hand Smoke Exposure: No Recent Foreign Travel: No Contact w/other who traveled: No Recent Infectious Disease Expo: No Review of Systems Constitutional: see HPI Physical Exam Physical Exam Vital Signs Vital Signs - First Documented 02/03/19 02/03/19 02/03/19 11:45 15:30 16:20 Temp 100.2 Pulse 138 Resp 22 B/P (MAP) 185/93 (123) Pulse Ox 92 O2 Delivery Mechanical Ventilator O2 Flow Rate 3.00 FiO2 50 Capillary Refill : Less Than 3 Seconds Height, Weight, BMI Height: 6'1.00" Weight: 269lbs. 9.0oz. 122.125937bx; 35.6 BMI Method:Stated General Appearance: No Apparent Distress, Other (intubated and sedated) Respiratory: Lungs Clear, Normal Breath Sounds Cardiovascular: Regular Rate, Rhythm Results Results/Procedures Labs Laboratory Tests 02/03/19 11:46 02/03/19 17:30 8/30/19 04:35 Patient resulted labs reviewed. Assessment/Plan Admission Diagnosis Assessment: VDRF ETOH withdrawal Plan: Vent ETOH withdrawal protocol Admission Status: Inpatient Order (span 2 midnights) Reason for Inpatient Admission: Resp failure Diagnosis/Problems Diagnosis/Problems (1) Hypercapnic respiratory failure Status: Acute (2) Seizure Status: Acute (3) Alcohol abuse Status: Acute (4) Hypokalemia Status: Acute Clinical Quality Measures DVT/VTE Risk/Contraindication: Risk Factor Score Per Nursin RFS Level Per Nursing on Admit: 2=Moderate DEBORA ARNETT DO Feb 04, 2019 10:57
[2019-02-04] MEDS ORDERED: CYAN-41 PO (10:58)
[2019-02-04] MEDS ORDERED: NAPH15DR62 OU (10:58)
[2019-02-04] MEDS ORDERED: FLUT9.9S NS (10:58)
[2019-02-04] MEDS ORDERED: POTA99TA21 PO (10:58)
[2019-02-04] MEDS ORDERED: ACET-2267 PO (10:58)
[2019-02-04] MEDS ORDERED: INSU100I14 SC (10:58)
[2019-02-04] MEDS ORDERED: IBUP-30 PO (10:58)
[2019-02-04] MEDS ORDERED: ASPI-983 PO (10:58)
[2019-02-04] MEDS ORDERED: SODI30SP2 NS (10:58)
[2019-02-04] MEDS ORDERED: INSU100I14 SQ (11:10)
[2019-02-04] MEDS ORDERED: FISH1CAP15 PO (11:10)
[2019-02-04] MEDS ORDERED: DAPA10TA PO (11:15)
--- NOTE | 2019-02-04 11:16 | NUR ---
I CALLED AND WENT OVER THE EXT MED HX WITH THE PATIENTS . SHE VERIFIED HOW HE TAKES HIS MEDICATIONS TO THE BEST OF HER ABILITY BUT WITHOUT BEING AT HOME LOOKING AT THEM SHE IS A LITTLE UNSURE. I HAD A LIST FAXED OVER FROM DR. WALTERS'S OFFICE. I COMPARED THAT LIST WITH THE EXT MED HX AND UPDATED THE MED REC ACCORDINGLY. THE LIST FROM THE OFFICE HAS CITALOPRAM 40MG DAILY HOWEVER THE PATIENT LAST FILLED THE 40MG TABLETS TO TAKE 1/2 TAB DAILY. I PUT IT ON MED REC IT WAS LAST FILLED. ALSO LISTED IS FARXIGA 10MG DAILY - THE PATIENT HAS NOT FILLED THIS AT [facility] SINCE 11-22-18 #30. I LEFT IT ON THE MED REC AT THIS TIME. [facility] REPORTS IT IS OUT OF REFILLS BUT THE COST WAS ONLY $15. I NOTED THE PAST DUE FILL DATE ON THE MED REC. OTC MEDS: FISH OIL 1200MG DAILY IBU 2-3 PRN FLONASE NASAL SPRAY PRN POTASSIUM PRN SALINE NASAL SPRAY PRN ALLERGY EYE DROPS PRN B 12 ASPIRIN 81MG DAILY PRN TYLENOL 1000MG PRN
--- NOTE | 2019-02-04 12:22 | Physician Query Clarification ---
PQ-Intro New Diagnosis Admission/Discharge Admission Date: Feb 03, 2019 at 14:25 Discharge Date: The medical record reflects the following clinical scenario: History/Risk Factors: Acute Respiratory Failure with hypercapnia Seizures Alcohol withdrawal Clinical Findings:Per patient's son-Patient started to shake for 60-90 seconds. Patient does report heavy alcohol use, but states it is not daily. Tacycardia and hypoxic. Treatment: Patient was placed on oxygen and monitors then intubated and mechanical ventilation. Question: What condition best reflects the above clinical scenario? Please document a response in the Progress Noter or Discharge Summary. 1. Alcohol dependence with withdrawal. 2. Alcohol abuse with alcohol withdrawal. 3. Other, with explanation of the clinical findings. 4. Clinically undetermined, no explanation for the clinical findings. PHYSICIAN RESPONSE What condition reflects above: 2 Please remember a lack of response to the above will prompt a phone page by CDI/Coding staff. In responding to this query, please exercise your independent professional judgment. The purpose of this communication is to more accurately reflect the complexity of your patients condition. The fact that a question is asked does not imply that any particular answer is desired or expected. Thank you for your timely response to this clarification. Requestors name: [ ] Phone # [ ] THIS PHYSICIAN QUERY FORM IS A PERMANENT PART OF THE MEDICAL RECORD MARIA LUISA CORTEZ Feb 04, 2019 12:22 SELENA FLORES DO Feb 04, 2019 16:51
--- NOTE | 2019-02-04 12:43 | NUR ---
TUBE FEEDING RESIDUAL EASILY PULLED BACK 120ML QUICKLY. PT STARTING TO BECOME WHEEZY SINCE STARTING TUBE FEEDINGS THIS AM. FEEDINGS HELD AND DR SOUSA NOTIFIED. NEW ORDERS RECEIVED TO STOP FEEDINGS AT THIS TIME. PT PLACED BACK ON LIS.
[2019-02-04] MEDS: RT-ALBUTEROL/IPRATROPIUM 3 ML (DUONEB) VIAL INH SCH ×3 (15:04→23:13)
--- NOTE | 2019-02-04 20:00 | NUR ---
INCREASED FIO2 TO 45% @ 2010 INCREASED FIO2 TO 60% ALL DUE TO SPO2 LESS THAN 90%.
[2019-02-04] MEDS ORDERED: aCETylcysteine 20% (MUCOMYST) 30ML SOLN VIAL ONE (23:01)
[2019-02-04] MEDS: guaiFENesin SYRUP 100 MG/5 ML 10 ML (ROBITUSSIN SF) GT SCH (23:04)
[2019-02-04] MEDS: aCETylcysteine 20% (MUCOMYST) 30ML SOLN VIAL INH SCH (23:13)
[2019-02-04 23:38] LABS: ABG BASE EXCESS -6.3 MMOL/L (-2.5-2.5); ABG OXYGEN SATURATION 95 % (94-100); ABG PCO2 31 MMHG (35-45); ABG PH 7.38 (7.37-7.43); ABG PO2 73 MMHG (79-93); ABG TCO2 18.9 MMOL/L (21.0-31.0)
[2019-02-04 23:50] LABS: ALLENS TEST POSITIVE; INSPIRED O2 60%; VENTILATOR YES
[2019-02-04 23:52] LABS: ALBUMIN 3.3 GM/DL (3.2-4.5); BUN/CREATININE RATIO 25; CARBON DIOXIDE 18 MMOL/L (21-32); CHLORIDE 108 MMOL/L (98-107); CREATININE SERUM 0.71 MG/DL (0.60-1.30); GFR ESTIMATED > 60; GLUCOSE 258 MG/DL (70-105); MAGNESIUM 1.9 MG/DL (1.6-2.4); POTASSIUM 4.3 MMOL/L (3.6-5.0); SODIUM 135 MMOL/L (135-145)
[2019-02-05] VITALS (30 sets, daily range): BP systolic 118–147; BP diastolic 72–93
[2019-02-05] MEDS ORDERED: SODIUM BICARB 8.4% 50 MEQ/50 ML VIAL ONE (01:07)
[2019-02-05] MEDS ORDERED: SODIUM BICARB 8.4% 50 MEQ/50 ML (ABBOTT) SYR IV ONE (01:15)
[2019-02-05] MEDS: PROPOFOL DRIP (ICU) 100 ML IV SCH ×9 (01:41→23:45)
[2019-02-05] MEDS: RT-ALBUTEROL/IPRATROPIUM 3 ML (DUONEB) VIAL INH SCH ×6 (02:04→21:31)
[2019-02-05] MEDS ORDERED: aCETylcysteine 20% (MUCOMYST) 30ML SOLN VIAL INH SCH (03:00)
[2019-02-05 04:06] LABS: BASOPHILS % (AUTO) 0 % (0-10); EOSINOPHILS % (AUTO) 0 % (0-10); HEMATOCRIT 35 % (40-54); HEMOGLOBIN 11.6 G/DL (13.3-17.7); LYMPHOCYTES # (AUTO) 0.6 X 10^3 (1.0-4.0); LYMPHOCYTES % (AUTO) 13 % (12-44); MEAN CORPUSCULAR HEMOGLOBIN 30 PG (25-34); MEAN CORPUSCULAR HGB CONC 33 G/DL (32-36); MEAN CORPUSCULAR VOLUME 89 FL (80-99); MEAN PLATELET VOLUME 11.6 FL (7.4-10.4); MONOCYTES # (AUTO) 0.6 X 10^3 (0.0-1.0); MONOCYTES % (AUTO) 12 % (0-12); NEUTROPHILS # (AUTO) 3.4 X 10^3 (1.8-7.8); NEUTROPHILS % (AUTO) 74 % (42-75); PLATELET COUNT 67 10^3/uL (130-400); WHITE BLOOD COUNT 4.5 10^3/uL (4.3-11.0)
[2019-02-05 04:25] LABS: BUN/CREATININE RATIO 27; CARBON DIOXIDE 14 MMOL/L (21-32); CHLORIDE 119 MMOL/L (98-107); CREATININE SERUM 0.49 MG/DL (0.60-1.30); GFR ESTIMATED > 60; GLUCOSE 175 MG/DL (70-105); MAGNESIUM 1.3 MG/DL (1.6-2.4); POTASSIUM 2.9 MMOL/L (3.6-5.0); SODIUM 141 MMOL/L (135-145); TRIGLYCERIDES 81 MG/DL (<150)
[2019-02-05 04:36] LABS: CALCIUM 5.2 MG/DL (8.5-10.1); PHOSPHORUS 0.8 MG/DL (2.3-4.7)
[2019-02-05] MEDS: DEXMEDETOMIDINE INJECTION 1,000 MCG in NS (IVPB) 240 ML IV SCH ×4 (05:02→21:39)
[2019-02-05 05:46] LABS: BASOPHILS % (AUTO) 0 % (0-10); EOSINOPHILS % (AUTO) 0 % (0-10); HEMATOCRIT 39 % (40-54); HEMOGLOBIN 13.2 G/DL (13.3-17.7); LYMPHOCYTES # (AUTO) 0.6 X 10^3 (1.0-4.0); LYMPHOCYTES % (AUTO) 12 % (12-44); MEAN CORPUSCULAR HEMOGLOBIN 30 PG (25-34); MEAN CORPUSCULAR HGB CONC 34 G/DL (32-36); MEAN CORPUSCULAR VOLUME 89 FL (80-99); MEAN PLATELET VOLUME 11.3 FL (7.4-10.4); MONOCYTES # (AUTO) 0.6 X 10^3 (0.0-1.0); MONOCYTES % (AUTO) 14 % (0-12); NEUTROPHILS # (AUTO) 3.4 X 10^3 (1.8-7.8); NEUTROPHILS % (AUTO) 74 % (42-75); PLATELET COUNT 87 10^3/uL (130-400); RED CELL DISTRIBUTION WIDTH 15.1 % (10.0-14.5); WHITE BLOOD COUNT 4.6 10^3/uL (4.3-11.0)
[2019-02-05 06:07] LABS: BUN/CREATININE RATIO 23; CALCIUM 7.1 MG/DL (8.5-10.1); CARBON DIOXIDE 20 MMOL/L (21-32); CHLORIDE 109 MMOL/L (98-107); GFR ESTIMATED > 60; GLUCOSE 229 MG/DL (70-105); MAGNESIUM 1.8 MG/DL (1.6-2.4); PHOSPHORUS 1.2 MG/DL (2.3-4.7); POTASSIUM 3.6 MMOL/L (3.6-5.0); SODIUM 139 MMOL/L (135-145)
[2019-02-05] MEDS: aCETylcysteine 20% (MUCOMYST) 30ML SOLN VIAL INH SCH ×3 (06:14→21:31)
[2019-02-05 07:02] LABS: EOSINOPHILS % (MANUAL) 2 %; LYMPHOCYTES % (MANUAL) 16 %; MONOCYTES % (MANUAL) 12 %; NEUTROPHILS % (MANUAL) 70 %
[2019-02-05] MEDS: D5 NS W/KCL 20 MEQ/L 1,000 ML IV SCH ×3 (07:03→19:15)
[2019-02-05] MEDS: POTASSIUM CL 10MEQ/50ML IVPB 50 ML IV SCH (07:04)
[2019-02-05] MEDS: MAGNESIUM 1 GM/100 ML IVPB 100 ML IV SCH (07:04)
[2019-02-05] MEDS: guaiFENesin SYRUP 100 MG/5 ML 10 ML (ROBITUSSIN SF) GT SCH ×6 (07:04→23:34)
[2019-02-05] MEDS: CATHETER FLUSH 10 ML SYR IV SCH ×3 (07:04→21:17)
[2019-02-05] MEDS: KCL 20 MEQ TAB (K-DUR) PO SCH (07:04)
[2019-02-05] MEDS: inSUlin ASPART (NovoLOG) 1 UNIT/0.01 ML (CHARGE PER UNIT) SQ SCH ×4 (07:05→23:53)
--- NOTE | 2019-02-05 07:11 | Pulmonary Progress Note ---
Subjective Time Seen by a Provider: 07:10 Subjective/Events-last exam Sedated on vent currently. Sepsis Event Evaluation Height, Weight, BMI Height: 6'1.00" Weight: 269lbs. 9.0oz. 122.790888op; 35.6 BMI Method:Stated Focused Exam Lactate Level 02/03/19 12:00: Lactic Acid Level 1.79 02/04/19 05:55: Lactic Acid Level 0.78 02/04/19 23:25: Lactic Acid Level 1.90 Exam Exam Vital Signs Date Time Temp Pulse Resp B/P (MAP) Pulse Ox O2 Delivery O2 Flow Rate FiO2 02/05/19 06:15 81 27 96 45 02/05/19 06:00 81 25 128/84 (99) 98 Mechanical Ventilator 60.00 02/05/19 05:03 82 26 128/84 97 Mechanical Ventilator 60.00 02/05/19 05:00 82 25 128/84 (99) 97 Mechanical Ventilator 60.00 02/05/19 04:00 96 27 126/83 (97) 95 Mechanical Ventilator 60.00 02/05/19 03:00 86 24 145/90 (108) 95 Mechanical Ventilator 60.00 02/05/19 02:04 80 25 93 60 02/05/19 02:00 80 15 129/89 (102) 93 Mechanical Ventilator 60.00 02/05/19 01:41 82 27 118/84 94 Mechanical Ventilator 60.00 02/05/19 01:00 84 02/05/19 01:00 82 27 118/84 (95) 95 Mechanical Ventilator 60.00 02/05/19 00:15 98.0 02/05/19 00:11 95 Mechanical Ventilator 35 02/05/19 00:00 83 26 120/84 (96) 95 Mechanical Ventilator 60.00 02/04/19 23:13 75 26 96 35 02/04/19 23:00 75 25 105/70 (82) 97 Mechanical Ventilator 60.00 02/04/19 22:39 79 28 112/80 96 Mechanical Ventilator 60.00 02/04/19 22:00 76 23 113/82 (92) 96 Mechanical Ventilator 60.00 02/04/19 21:00 80 28 119/82 (94) 95 Mechanical Ventilator 60.00 02/04/19 20:50 Mechanical Ventilator 02/04/19 20:23 Mechanical Ventilator 60.00 02/04/19 20:15 Mechanical Ventilator 65.00 02/04/19 20:10 95 Mechanical Ventilator 35 02/04/19 20:00 98.6 02/04/19 20:00 80 22 105/76 (86) 96 Mechanical Ventilator 35.00 02/04/19 19:00 75 30 96/72 (80) 93 Mechanical Ventilator 35.00 02/04/19 19:00 76 02/04/19 18:48 73 37 94 35 02/04/19 18:00 75 28 106/81 (89) 94 Mechanical Ventilator 35.00 02/04/19 17:07 110/80 02/04/19 17:00 76 31 110/80 (90) 93 Mechanical Ventilator 35.00 02/04/19 16:00 98.6 02/04/19 16:00 79 27 111/82 (92) 94 Mechanical Ventilator 35.00 02/04/19 16:00 95 Mechanical Ventilator 35 02/04/19 15:04 71 30 95 40 02/04/19 15:00 71 29 109/78 (88) 95 Mechanical Ventilator 40.00 02/04/19 15:00 Mechanical Ventilator 35.00 02/04/19 14:00 69 32 110/80 (90) 94 Mechanical Ventilator 40.00 02/04/19 13:00 66 33 112/81 (91) 93 Mechanical Ventilator 40.00 02/04/19 13:00 67 02/04/19 12:00 97.3 02/04/19 11:13 100 Mechanical Ventilator 35 02/04/19 11:04 93/71 02/04/19 10:54 67 26 92 35 02/04/19 10:00 67 22 113/82 (92) 94 Mechanical Ventilator 30.00 02/04/19 09:00 68 21 114/81 (92) 93 Mechanical Ventilator 30.00 02/04/19 08:21 72 22 93 35 02/04/19 08:16 98.4 02/04/19 08:00 100 Mechanical Ventilator 35 02/04/19 08:00 72 21 115/83 (94) 92 Mechanical Ventilator 30.00 I & O 02/05/19 07:00 Intake Total 4855.2 ml Output Total 2300 ml Balance 2555.2 ml Height & Weight Height: 6'1.00" Weight: 269lbs. 9.0oz. 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 -Will do bronchoscopy once consent is obtained -RN states pt is a difficult stick for labs. Will place central line once consent is obtained. -Continue ventilator care. -TF - Currently on hold secondary to high residual Hypotension -IVF -Monitor Alcohol withdrawal with questionable seizure activity -Banana bag -Continue to monitor Metabolic acidosis -IVF -Repeat LA Elevated LFTs and ammonia level -Check hep panel -Start lactulose Hypokalemia, hypomag -replace RAFAEL SOUSA DO Feb 05, 2019 07:11
--- NOTE | 2019-02-05 07:53 | Diagnostic Imaging Report ---
INDICATION: Dyspnea. COMPARISON: 02/04/2019. DISCUSSION: Single portable upright view of the chest was obtained. Endotracheal tube and enteric tube are stable. Markedly low lung volumes. Normal heart size. No focal consolidation, pleural fluid, or pneumothorax. No osseous abnormality. IMPRESSION: 1. Stable support lines. Low lung volumes. Dictated by: Dictated on workstation # [id number]
[2019-02-05] MEDS: LACTULOSE SYRUP 10GM/15ML (ENULOSE) 30ML UDC PO SCH ×2 (08:33→21:16)
[2019-02-05] MEDS: PANTOPRAZOLE 40 MG (PROTONIX) VIAL IV SCH ×2 (08:34→21:17)
[2019-02-05] MEDS: THIAMINE INJECTION 100 MG, FOLIC ACID INJECTION 1 MG, MAGNESIUM SULFATE 2 GM, VITAMIN M... IV SCH ×5 (08:34)
[2019-02-05] MEDS ORDERED: POTASSIUM PHOSPHATE INJ 30 MM in NS (IVPB) 250 ML IV ONE (09:00)
--- NOTE | 2019-02-05 09:58 | Occ Therapy Progress Note ---
Therapy Progress Note Pt continues sedated and on vent. Will continue to follow. MARQUITA BAZAN OT Feb 05, 2019 09:58
--- NOTE | 2019-02-05 12:24 | Progress Note - Hospitalist ---
Subjective HPI/CC On Admission Date Seen by Provider: Feb 05, 2019 Time Seen by Provider: 11:30 Chief complaint: Respiratory failure History of present illness: This is a 58-year-old white male clinic patient of Dr. shaffer of [facility] who presented to the [facility] ER after syncopal episode. Work-up ensued revealing alcohol withdrawal and respiratory failure with ABG showing pH of 7.1 and CO2 of 90 with CO2 retention. He was emergently intubated moved to [facility] ICU for pulmonary expertise. At this current time mother is at the bedside and she apparently does not know how much alcohol he drinks on a regular basis which seems to be a lifelong addiction issue. We will monitor the situation closely and maintain ventilator. Subjective/Events-last exam Patient remains intubated Evidence reveals chronic alcoholism and family was not aware Mother and sister at the bedside Bronchoscopy will be performed tomorrow Focused Exam Lactate Level 02/04/19 05:55: Lactic Acid Level 0.78 02/04/19 23:25: Lactic Acid Level 1.90 02/05/19 14:49: Lactic Acid Level 1.21 Objective Exam Vital Signs Vital Signs Date Time Temp Pulse Resp B/P (MAP) Pulse Ox O2 Delivery O2 Flow Rate FiO2 02/05/19 19:15 96 29 140/85 93 Mechanical Ventilator 45.00 02/05/19 18:21 45 02/05/19 00:15 98.0 Capillary Refill : Less Than 3 Seconds General Appearance: No Apparent Distress, WD/WN, Chronically ill, Obese, Other (sedated and intubated) Respiratory: Lungs Clear Cardiovascular: Regular Rate, Rhythm Results/Procedures Lab Laboratory Tests 02/04/19 23:25 02/05/19 03:25 02/05/19 03:35 02/05/19 05:25 Patient resulted labs reviewed. Assessment/Plan Assessment and Plan Assess & Plan/Chief Complaint VDRF ETOH withdrawal Bronch tomorrow Vent per Dr Hernandez Diagnosis/Problems Diagnosis/Problems (1) Hypercapnic respiratory failure Status: Acute (2) Seizure Status: Acute (3) Alcohol abuse Status: Acute (4) Hypokalemia Status: Acute Clinical Quality Measures DVT/VTE Risk/Contraindication: Risk Factor Score Per Nursin RFS Level Per Nursing on Admit: 2=Moderate SELENA FLORES DO Feb 05, 2019 12:24
[2019-02-05] MEDS: LORazepam INJ 2 MG/ML (ATIVAN) VIAL IVP PRN (21:39)
[2019-02-06] VITALS (29 sets, daily range): BP systolic 95–148; BP diastolic 66–95
[2019-02-06] MEDS: RT-ALBUTEROL/IPRATROPIUM 3 ML (DUONEB) VIAL INH SCH ×6 (01:52→22:46)
[2019-02-06] MEDS: LORazepam INJ 2 MG/ML (ATIVAN) VIAL IVP PRN ×3 (03:21→19:57)
[2019-02-06] MEDS: D5 NS W/KCL 20 MEQ/L 1,000 ML IV SCH ×2 (03:21→14:45)
[2019-02-06] MEDS: guaiFENesin SYRUP 100 MG/5 ML 10 ML (ROBITUSSIN SF) GT SCH ×5 (03:21→21:35)
[2019-02-06] MEDS: PROPOFOL DRIP (ICU) 100 ML IV SCH ×7 (03:22→21:12)
[2019-02-06 03:34] LABS: ABG BASE EXCESS -4.5 MMOL/L (-2.5-2.5); ABG OXYGEN SATURATION 93 % (94-100); ABG PCO2 29 MMHG (35-45); ABG PH 7.43 (7.37-7.43); ABG PO2 67 MMHG (79-93); ABG TCO2 19.6 MMOL/L (21.0-31.0)
[2019-02-06 03:37] LABS: ALLENS TEST POSITIVE; INSPIRED O2 45%; PATIENT TEMP 101.2; VENTILATOR YES
[2019-02-06] MEDS: DEXMEDETOMIDINE INJECTION 1,000 MCG in NS (IVPB) 240 ML IV SCH ×4 (03:58→21:12)
[2019-02-06] MEDS ORDERED: fentaNYL INJECTION 100 MCG/2 ML AMP ONE (05:43)
[2019-02-06] MEDS ORDERED: MIDAZOLAM 5 MG/5 ML (VERSED) VIAL ONE (05:44)
[2019-02-06] MEDS ORDERED: PHARMACY TO DOSE IV SCH (05:45)
--- NOTE | 2019-02-06 05:45 | Pulmonary Progress Note ---
Subjective Time Seen by a Provider: 07:02 Subjective/Events-last exam Sedated on vent Sepsis Event Evaluation Height, Weight, BMI Height: 6'1.00" Weight: 269lbs. 9.0oz. 122.386825ti; 35.6 BMI Method:Stated Focused Exam Lactate Level 02/04/19 05:55: Lactic Acid Level 0.78 02/04/19 23:25: Lactic Acid Level 1.90 02/05/19 14:49: Lactic Acid Level 1.21 Exam Exam Vital Signs Date Time Temp Pulse Resp B/P (MAP) Pulse Ox O2 Delivery O2 Flow Rate FiO2 02/06/19 05:03 99.8 90 29 131/81 95 Mechanical Ventilator 45.00 02/06/19 05:00 90 28 131/81 (98) 95 Mechanical Ventilator 45.00 02/06/19 04:04 99.8 02/06/19 04:02 Mechanical Ventilator 45 02/06/19 04:00 92 28 127/80 (96) 95 Mechanical Ventilator 45.00 02/06/19 03:22 101.2 94 30 133/82 Mechanical Ventilator 45.00 02/06/19 03:00 95 31 133/82 (99) 93 Mechanical Ventilator 45.00 02/06/19 02:00 92 30 138/83 (101) 97 Mechanical Ventilator 45.00 02/06/19 01:52 92 28 96 45 02/06/19 01:00 94 02/06/19 01:00 93 29 137/82 (100) 100 Mechanical Ventilator 45.00 02/06/19 00:30 Mechanical Ventilator 45 02/06/19 00:00 92 30 148/89 (108) 95 Mechanical Ventilator 45.00 02/06/19 00:00 99.8 02/05/19 23:45 99.0 92 31 143/86 95 Mechanical Ventilator 45.00 02/05/19 23:00 94 28 143/86 (105) 95 Mechanical Ventilator 45.00 02/05/19 22:00 96 25 120/72 (88) 94 Mechanical Ventilator 45.00 02/05/19 21:40 94 29 147/93 Mechanical Ventilator 45.00 02/05/19 21:31 93 28 95 45 02/05/19 21:00 95 29 147/93 (111) 93 Mechanical Ventilator 45.00 02/05/19 20:32 Mechanical Ventilator 45 02/05/19 20:00 100.2 02/05/19 20:00 98 20 141/91 (108) 93 Mechanical Ventilator 45.00 02/05/19 19:30 102.5 02/05/19 19:15 96 29 140/85 93 Mechanical Ventilator 45.00 02/05/19 19:00 96 19 140/85 (103) 93 Mechanical Ventilator 45.00 02/05/19 19:00 96 02/05/19 18:21 90 28 94 45 02/05/19 18:00 90 28 130/86 (101) 94 Mechanical Ventilator 60.00 02/05/19 17:00 89 27 136/88 (104) 95 Mechanical Ventilator 60.00 02/05/19 16:25 91 02/05/19 16:00 Mechanical Ventilator 45 02/05/19 16:00 91 25 136/90 (105) 95 Mechanical Ventilator 60.00 02/05/19 15:00 92 25 131/88 (102) 94 Mechanical Ventilator 60.00 02/05/19 14:08 84 28 98 45 02/05/19 14:00 84 23 125/84 (98) 97 Mechanical Ventilator 60.00 02/05/19 13:48 85 131/89 02/05/19 13:00 85 23 131/89 (103) 97 Mechanical Ventilator 60.00 02/05/19 13:00 86 02/05/19 12:00 Mechanical Ventilator 45 02/05/19 12:00 87 24 135/89 (104) 96 Mechanical Ventilator 60.00 02/05/19 11:00 87 25 132/89 (103) 96 Mechanical Ventilator 60.00 02/05/19 10:16 86 30 96 45 02/05/19 10:00 86 26 135/88 (104) 96 Mechanical Ventilator 60.00 02/05/19 09:00 83 23 137/89 (105) 96 Mechanical Ventilator 60.00 02/05/19 08:34 83 02/05/19 08:23 83 29 135/89 Mechanical Ventilator 45.00 02/05/19 08:00 95 Mechanical Ventilator 45 02/05/19 08:00 82 27 135/89 (104) 96 Mechanical Ventilator 60.00 02/05/19 07:00 81 02/05/19 07:00 81 27 128/84 (99) 96 Mechanical Ventilator 60.00 02/05/19 06:15 81 27 96 45 02/05/19 06:00 81 25 128/84 (99) 98 Mechanical Ventilator 60.00 I & O 02/06/19 07:00 Intake Total 3260 ml Output Total 2600 ml Balance 660 ml Height & Weight Height: 6'1.00" Weight: 269lbs. 9.0oz. 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 -Will do bronchoscopy once consent is obtained -RN states pt is a difficult stick for labs. Will place central line once consent is obtained. -Continue ventilator care. -TF - Currently on hold secondary to high residual Fever -Repeat BC, bronchoscopy this AM -Start Zosyn Vanco -Labs pending Hypotension -Resolved -IVF 150 with D 5 1/ -Monitor Alcohol withdrawal with questionable seizure activity -Banana bag -Continue to monitor Metabolic acidosis -IVF -Repeat LA Elevated LFTs and ammonia level -Check hep panel -Start lactulose Hypokalemia, hypomag -replace RAFAEL SOUSA DO Feb 06, 2019 05:45
[2019-02-06 05:46] LABS: BASOPHILS % (AUTO) 0 % (0-10); EOSINOPHILS % (AUTO) 0 % (0-10); HEMATOCRIT 40 % (40-54); HEMOGLOBIN 13.3 G/DL (13.3-17.7); LYMPHOCYTES # (AUTO) 0.9 X 10^3 (1.0-4.0); LYMPHOCYTES % (AUTO) 17 % (12-44); MEAN CORPUSCULAR HEMOGLOBIN 30 PG (25-34); MEAN CORPUSCULAR HGB CONC 33 G/DL (32-36); MEAN CORPUSCULAR VOLUME 90 FL (80-99); MEAN PLATELET VOLUME 11.7 FL (7.4-10.4); MONOCYTES # (AUTO) 0.9 X 10^3 (0.0-1.0); MONOCYTES % (AUTO) 19 % (0-12); NEUTROPHILS # (AUTO) 3.2 X 10^3 (1.8-7.8); NEUTROPHILS % (AUTO) 64 % (42-75); PLATELET COUNT 83 10^3/uL (130-400); RED CELL DISTRIBUTION WIDTH 15.1 % (10.0-14.5)
[2019-02-06 06:23] LABS: CARBON DIOXIDE 18 MMOL/L (21-32); CHLORIDE 111 MMOL/L (98-107); POTASSIUM 3.5 MMOL/L (3.6-5.0); SODIUM 141 MMOL/L (135-145)
[2019-02-06 06:24] LABS: BUN/CREATININE RATIO 14; GFR ESTIMATED > 60; GLUCOSE 231 MG/DL (70-105); MAGNESIUM 1.9 MG/DL (1.6-2.4); PHOSPHORUS 1.4 MG/DL (2.3-4.7)
[2019-02-06] MEDS ORDERED: PIPERACILLIN/TAZO 4.5 GM VIAL (ZOSYN) IV ONE (06:30)
[2019-02-06] MEDS: CATHETER FLUSH 10 ML SYR IV SCH ×3 (06:30→21:36)
[2019-02-06] MEDS ORDERED: MIDAZOLAM 5 MG/5 ML (VERSED) VIAL IVP ONE (06:30)
[2019-02-06] MEDS ORDERED: NS (IVPB) 100 ML ONE ×2 (06:32→06:35)
[2019-02-06] MEDS ORDERED: POTASSIUM CL 10MEQ/50ML IVPB 50 ML IV ONE (06:45)
[2019-02-06] MEDS: POTASSIUM CL 10MEQ/50ML IVPB 50 ML IV SCH ×2 (06:49→08:30)
[2019-02-06] MEDS: aCETylcysteine 20% (MUCOMYST) 30ML SOLN VIAL INH SCH ×3 (06:51→22:46)
[2019-02-06] MEDS ORDERED: PIPERACILLIN/TAZOBACTAM (BULK) 4.5 GM in NS (IVPB) 100 ML IV NR (07:00)
[2019-02-06] MEDS: inSUlin ASPART (NovoLOG) 1 UNIT/0.01 ML (CHARGE PER UNIT) SQ SCH ×3 (07:06→17:57)
--- NOTE | 2019-02-06 07:15 | NUR ---
Vanco - Give 2gm loading dose over 2 hours, then start 1250mg every 8 hours. Trough on 02/07 @ @ 1500.
[2019-02-06] MEDS ORDERED: VANCOMYCIN 2000 MG/NS 500 ML IVPB IV NR ×2 (08:00)
[2019-02-06] MEDS: APAP 325 MG/10.15 ML LIQ (TYLENOL) UDC GT PRN (08:12)
[2019-02-06] MEDS: LACTULOSE SYRUP 10GM/15ML (ENULOSE) 30ML UDC PO SCH ×2 (08:12→21:35)
[2019-02-06] MEDS: PANTOPRAZOLE 40 MG (PROTONIX) VIAL IV SCH ×2 (08:13→21:55)
[2019-02-06] MEDS: KCL 20 MEQ TAB (K-DUR) PO SCH (08:22)
[2019-02-06] MEDS: MAGNESIUM 1 GM/100 ML IVPB 100 ML IV SCH (08:27)
[2019-02-06] MEDS ORDERED: NS 100 ML (IVPB) BAG IV ONE (10:15)
[2019-02-06] MEDS ORDERED: IOHEXOL 350 MG/ML 100 ML (OMNIPAQUE 350) VIAL IV ONE (10:15)
[2019-02-06] MEDS ORDERED: CATHETER FLUSH 10 ML SYR IV PRN (10:15)
[2019-02-06] MEDS ORDERED: HOLD METFORMIN - RECEIVED CONTRAST 20 ML VIAL IV SCH (10:15)
--- NOTE | 2019-02-06 10:26 | Diagnostic Imaging Report ---
Indication: Shortness of breath. Comparison made with prior examination from 02/05/19. Findings: There is cardiomegaly ET and NG tubes are in satisfactory position. There is some left basilar atelectasis and/or pneumonitis. There is no pneumothorax. The mediastinum is unremarkable. Impression: Cardiomegaly and some left basilar atelectasis and/or pneumonitis. Dictated by: Dictated on workstation # [id number]
[2019-02-06] MEDS ORDERED: DIATRIZOATE MEGLUM/SODIUM 37% 120 ML (GASTROGRAFIN) PO ONE (10:30)
[2019-02-06] MEDS: THIAMINE INJECTION 100 MG, FOLIC ACID INJECTION 1 MG, MAGNESIUM SULFATE 2 GM, VITAMIN M... IV SCH ×5 (10:46)
[2019-02-06] MEDS: PIPERACILLIN/TAZO 4.5 GM/NS 100 ML IV SCH ×4 (11:48→21:35)
--- NOTE | 2019-02-06 12:50 | Diagnostic Imaging Report ---
PROCEDURE: CT chest, abdomen, and pelvis with contrast. TECHNIQUE: Multiple contiguous axial images were obtained through the chest, abdomen, and pelvis after the administration of intravenous contrast. Auto Exposure Controls were utilized during the CT exam to meet ALARA standards for radiation dose reduction. DATE: February 06, 2019. COMPARISON: Chest radiograph February 06, 2019. CT chest February 03, 2019. INDICATION: 58-year-old male, seizure, abdominal distention. Elevated d-dimer. FINDINGS: There is non-homogeneously enhancing airspace consolidation in the right middle lobe and right lower lobe as well as in the left lower lobe and posterior aspect of the left upper lobe. There is no pronounced volume loss. There is a trace right pleural effusion and a trace left pleural effusion. There is no pneumothorax. There is an endotracheal tube below the thoracic inlet and above the rosalia. The study is nondiagnostic for pulmonary embolus given the timing of the contrast bolus. There is no obvious central pulmonary embolus. The main pulmonary artery caliber is within normal limits. The heart is not enlarged. There is no pericardial effusion. There are atherosclerotic calcifications. There are right superior mediastinal lymph nodes on axial image 10 which measure up to 10 mm in short axis. There is no additional identified mediastinal, hilar, or axillary lymph node with meeting CT size criteria for adenopathy. There is diffuse fatty infiltration of the liver. The outer liver contours are not nodular. There is no identified liver lesion. The main, right, and left portal veins are patent. High attenuation within the gallbladder may relate to vicarious excretion of contrast, sludge, and/or stones. There is no evidence of acute cholecystitis. There is no biliary ductal dilation. The pancreatic parenchyma is unremarkable. There are small accessory splenules. The spleen is normal in size. The adrenal glands are unremarkable. There is a 2 mm nonobstructing left renal stone on axial image 69. The urinary collecting systems are not distended. There is no identified ureteral stone. There is a Petersen catheter within a collapsed urinary bladder. There is diverticulosis without evidence of acute diverticulitis. There are fluid-filled mildly dilated segments of distal small bowel. The transverse colon and right colon are mildly dilated. Fluid-filled mildly distended small bowel segments measure up to approximately 2.8 cm in diameter. There is some fecalization of contents within the distal small bowel segments compatible with slow intestinal transit. There is some distortion of bowel contours in the right lower abdomen which could relate to adhesions or twisting of bowel segments. There is no pneumatosis. There is no portal venous gas. There is no free intraperitoneal air. There is no drainable fluid collection. There is a very small volume ascites. There is no identified abnormally enlarged lymph node in the abdomen or pelvis which meet CT size criteria for adenopathy. The enteric tube is within the very proximal stomach. There is contrast in the esophagus which may relate to slow intestinal transit and/or gastroesophageal reflux. There is no identified acute bony abnormality. IMPRESSION: CT CHEST, ABDOMEN AND PELVIS. 1. Abnormal distortion of bowel contours in the right lower quadrant with mild fluid distention of distal small bowel segments and fecalization of contents within distal small bowel compatible with slow intestinal transit. Findings do raise concern for a distal small bowel obstruction. 2. No identified pneumatosis or free intraperitoneal air. 3. Nonspecific airspace consolidation in the right middle lobe, right lower lobe, and left lower lobe which may relate to aspiration, pneumonia, or other alveolar consolidative process. 4. Trace bilateral pleural effusions. 5. Prominent diffuse fatty infiltration of the liver. 6. Very small volume ascites. Dictated by: Dictated on workstation # [id number]
--- NOTE | 2019-02-06 13:19 | Progress Note - Hospitalist ---
Subjective HPI/CC On Admission Date Seen by Provider: Feb 06, 2019 Time Seen by Provider: 12:00 Chief complaint: Respiratory failure History of present illness: This is a 58-year-old white male clinic patient of Dr. shaffer of [facility] who presented to the [place] ER after syncopal episode. Work-up ensued revealing alcohol withdrawal and respiratory failure with ABG showing pH of 7.1 and CO2 of 90 with CO2 retention. He was emergently intubated moved to [facility] ICU for pulmonary expertise. At this current time mother is at the bedside and she apparently does not know how much alcohol he drinks on a regular basis which seems to be a lifelong addiction issue. We will monitor the situation closely and maintain ventilator. Subjective/Events-last exam Remains intubated Ran 103.6 fever this morning so he was pancultured and started on vancomycin and Zosyn Possible aspiration when he was downstairs obtaining CT scan of the abdomen since he was so distended Prognosis guarded Focused Exam Lactate Level 02/04/19 05:55: Lactic Acid Level 0.78 02/04/19 23:25: Lactic Acid Level 1.90 02/05/19 14:49: Lactic Acid Level 1.21 Objective Exam Vital Signs Vital Signs Date Time Temp Pulse Resp B/P (MAP) Pulse Ox O2 Delivery O2 Flow Rate FiO2 02/06/19 18:43 90 28 96 50 02/06/19 18:00 120/76 (91) Mechanical Ventilator 60.00 02/06/19 16:04 101.4 Capillary Refill : Less Than 3 Seconds General Appearance: No Apparent Distress, WD/WN, Chronically ill Respiratory: Lungs Clear Cardiovascular: Regular Rate, Rhythm Gastrointestinal: Abnormal Bowel Sounds, Distended Results/Procedures Lab Laboratory Tests 02/06/19 05:17 Patient resulted labs reviewed. Assessment/Plan Assessment and Plan Assess & Plan/Chief Complaint VDRF ETOH withdrawal Abdominal distention Fever placed on abx empirically Possible aspiration? Plan: Vent per Dr Hernandez Diagnosis/Problems Diagnosis/Problems (1) Hypercapnic respiratory failure Status: Acute (2) Seizure Status: Acute (3) Alcohol abuse Status: Acute (4) Hypokalemia Status: Acute Clinical Quality Measures DVT/VTE Risk/Contraindication: Risk Factor Score Per Nursin RFS Level Per Nursing on Admit: 2=Moderate SELENA FLORES DO Feb 06, 2019 13:19
[2019-02-06] MEDS: VANCOMYCIN 1250 MG/NS 250 ML IVPB IV SCH ×2 (16:16)
--- NOTE | 2019-02-06 20:26 | Diagnostic Imaging Report ---
INDICATION: OG tube position. EXAMINATION: Single view of the chest was obtained. FINDINGS: Normal heart size and vascularity. There is basilar atelectasis. There is no effusion or pneumothorax. The ET tube is in good position. An OG tube is present with the tube in the midbody of the stomach. IMPRESSION: The OG tube is in the midbody of the stomach. Dictated by: Dictated on workstation # [id number]
[2019-02-07] VITALS (30 sets, daily range): BP systolic 121–151; BP diastolic 68–82
[2019-02-07] MEDS: inSUlin ASPART (NovoLOG) 1 UNIT/0.01 ML (CHARGE PER UNIT) SQ SCH ×5 (00:27→23:59)
[2019-02-07] MEDS: guaiFENesin SYRUP 100 MG/5 ML 10 ML (ROBITUSSIN SF) GT SCH ×7 (00:27→23:58)
[2019-02-07] MEDS: VANCOMYCIN 1250 MG/NS 250 ML IVPB IV SCH ×6 (00:27→15:54)
[2019-02-07] MEDS: PROPOFOL DRIP (ICU) 100 ML IV SCH ×4 (00:29→15:42)
[2019-02-07] MEDS: RT-ALBUTEROL/IPRATROPIUM 3 ML (DUONEB) VIAL INH SCH ×6 (02:25→21:40)
[2019-02-07] MEDS: DEXMEDETOMIDINE INJECTION 1,000 MCG in NS (IVPB) 240 ML IV SCH ×5 (02:52→23:58)
[2019-02-07] MEDS: D5 NS W/KCL 20 MEQ/L 1,000 ML IV SCH ×2 (03:19→15:42)
[2019-02-07 04:01] LABS: BASOPHILS % (AUTO) 0 % (0-10); EOSINOPHILS % (AUTO) 1 % (0-10); HEMATOCRIT 38 % (40-54); HEMOGLOBIN 12.2 G/DL (13.3-17.7); LYMPHOCYTES % (AUTO) 16 % (12-44); MEAN CORPUSCULAR HGB CONC 32 G/DL (32-36); MEAN CORPUSCULAR VOLUME 91 FL (80-99); MEAN PLATELET VOLUME 11.1 FL (7.4-10.4); MONOCYTES # (AUTO) 1.2 X 10^3 (0.0-1.0); MONOCYTES % (AUTO) 19 % (0-12); NEUTROPHILS # (AUTO) 4.1 X 10^3 (1.8-7.8); NEUTROPHILS % (AUTO) 65 % (42-75); PLATELET COUNT 106 10^3/uL (130-400); RED CELL DISTRIBUTION WIDTH 15.3 % (10.0-14.5); WHITE BLOOD COUNT 6.4 10^3/uL (4.3-11.0)
[2019-02-07 04:09] LABS: MEAN CORPUSCULAR HEMOGLOBIN 29 PG (25-34)
[2019-02-07 04:22] LABS: BUN/CREATININE RATIO 17; CALCIUM 6.8 MG/DL (8.5-10.1); CARBON DIOXIDE 18 MMOL/L (21-32); CHLORIDE 113 MMOL/L (98-107); CREATININE SERUM 0.69 MG/DL (0.60-1.30); GFR ESTIMATED > 60; GLUCOSE 214 MG/DL (70-105); PHOSPHORUS 1.4 MG/DL (2.3-4.7); SODIUM 140 MMOL/L (135-145); TRIGLYCERIDES 131 MG/DL (<150)
[2019-02-07 04:53] LABS: ABG BASE EXCESS -7.7 MMOL/L (-2.5-2.5); ABG OXYGEN SATURATION 97 % (94-100); ABG PCO2 32 MMHG (35-45); ABG PO2 82 MMHG (79-93); ABG TCO2 17.8 MMOL/L (21.0-31.0)
[2019-02-07] MEDS: PIPERACILLIN/TAZO 4.5 GM/NS 100 ML IV SCH ×6 (04:53→21:00)
[2019-02-07] MEDS: LORazepam INJ 2 MG/ML (ATIVAN) VIAL IVP PRN ×2 (04:54→20:48)
[2019-02-07 04:56] LABS: ALLENS TEST POSITIVE; INSPIRED O2 50%; VENTILATOR YES
[2019-02-07 04:57] LABS: ABG PH 7.34 (7.37-7.43); PATIENT TEMP 98.8
--- NOTE | 2019-02-07 05:36 | Pulmonary Progress Note ---
Subjective Time Seen by a Provider: 05:50 Subjective/Events-last exam Pt sedated on vent. Sepsis Event Evaluation Height, Weight, BMI Height: 6'1.00" Weight: 284lbs. 6.0oz. 128.046519qe; 35.6 BMI Method:Stated Focused Exam Lactate Level 02/04/19 23:25: Lactic Acid Level 1.90 02/05/19 14:49: Lactic Acid Level 1.21 02/07/19 05:24: Lactic Acid Level Laboratory Tests Test 02/07/19 05:24 Exam Exam Vital Signs Date Time Temp Pulse Resp B/P (MAP) Pulse Ox O2 Delivery O2 Flow Rate FiO2 02/07/19 04:54 98.8 96 130/81 98 Mechanical Ventilator 50.00 02/07/19 04:23 Mechanical Ventilator 45 02/07/19 04:00 95 28 130/81 (97) 97 Mechanical Ventilator 60.00 02/07/19 03:00 96 24 127/77 (94) 98 Mechanical Ventilator 60.00 02/07/19 02:25 89 29 98 50 02/07/19 02:00 89 25 126/78 (94) 98 Mechanical Ventilator 60.00 02/07/19 01:00 90 23 122/78 (93) 97 Mechanical Ventilator 60.00 02/07/19 01:00 91 02/07/19 00:55 Mechanical Ventilator 45 02/07/19 00:29 99.8 92 29 121/77 97 Mechanical Ventilator 50.00 02/07/19 00:00 93 24 121/77 (92) 97 Mechanical Ventilator 60.00 02/06/19 23:00 92 16 108/73 (85) 97 Mechanical Ventilator 60.00 02/06/19 22:46 89 24 94 50 02/06/19 22:00 93 20 126/79 (95) 97 Mechanical Ventilator 60.00 02/06/19 21:12 99.8 96 124/74 22 Mechanical Ventilator 50.00 02/06/19 21:00 96 16 124/74 (91) 95 Mechanical Ventilator 60.00 02/06/19 20:07 Mechanical Ventilator 45 02/06/19 20:00 101 22 126/77 (93) 96 Mechanical Ventilator 60.00 02/06/19 19:00 97 02/06/19 19:00 96 30 118/73 (88) 95 Mechanical Ventilator 60.00 02/06/19 18:43 90 28 96 50 02/06/19 18:00 90 27 120/76 (91) 95 Mechanical Ventilator 60.00 02/06/19 17:00 91 25 95/66 (76) 95 Mechanical Ventilator 60.00 02/06/19 16:16 95 02/06/19 16:04 101.4 02/06/19 16:00 97 26 116/72 (87) 94 Mechanical Ventilator 60.00 02/06/19 16:00 Mechanical Ventilator 45 02/06/19 15:00 100 24 118/75 (89) 93 Mechanical Ventilator 60.00 02/06/19 14:45 98 02/06/19 14:27 Mechanical Ventilator 50.00 02/06/19 14:20 90 28 95 60 02/06/19 14:00 89 25 109/69 (82) 95 Mechanical Ventilator 60.00 02/06/19 13:00 100.6 90 20 107/69 (82) 94 Mechanical Ventilator 60.00 02/06/19 13:00 92 02/06/19 12:00 92 21 105/68 (80) 93 Mechanical Ventilator 60.00 02/06/19 12:00 Mechanical Ventilator 45 02/06/19 11:00 94 20 108/72 (84) 94 Mechanical Ventilator 60.00 02/06/19 10:40 Mechanical Ventilator 60.00 02/06/19 10:35 92 24 97 80 02/06/19 09:00 95 22 96/95 (95) 96 Mechanical Ventilator 80.00 02/06/19 08:13 98 02/06/19 08:12 103.6 02/06/19 08:00 98 20 111/70 (84) 96 Mechanical Ventilator 80.00 02/06/19 08:00 Mechanical Ventilator 45 02/06/19 07:00 96 21 113/73 (86) 94 Mechanical Ventilator 80.00 02/06/19 07:00 95 02/06/19 06:56 Mechanical Ventilator 80.00 02/06/19 06:51 94 21 94 80 02/06/19 06:48 94 21 119/78 93 Mechanical Ventilator 80.00 02/06/19 06:10 90 30 119/78 (92) 96 Mechanical Ventilator 45.00 I & O 02/07/19 07:00 Intake Total 2282.5 ml Output Total 3700 ml Balance -1417.5 ml Height & Weight Height: 6'1.00" Weight: 284lbs. 6.0oz. 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 -TF - Currently on hold secondary to high residual Pneumonia - probably aspiration present at admission -Continue Zosyn Vanco -Hannon cultures pending Ileus -Start Reglan 10mg IV BID -Increase Lactulose to TID -Abdomen is less distended today. -Continue IVF Alcohol withdrawal with questionable seizure activity -Banana bag -Continue to monitor Metabolic acidosis -IVF -Repeat LA Elevated LFTs and ammonia level -Check hep panel -Start lactulose Hypokalemia, hypomag -replace RAFAEL SOUSA DO Feb 07, 2019 05:36
[2019-02-07] MEDS ORDERED: SODIUM PHOSPHATE INJ 30 MM in NS (IVPB) 250 ML IV ONE (05:45)
[2019-02-07] MEDS: KCL 20 MEQ TAB (K-DUR) PO SCH (06:04)
[2019-02-07] MEDS: MAGNESIUM 1 GM/100 ML IVPB 100 ML IV SCH (06:04)
[2019-02-07] MEDS: CATHETER FLUSH 10 ML SYR IV SCH ×3 (06:04→22:27)
[2019-02-07] MEDS: aCETylcysteine 20% (MUCOMYST) 30ML SOLN VIAL INH SCH ×3 (06:37→21:48)
[2019-02-07] MEDS: METOCLOPRAMIDE INJ 10 MG/2 ML (REGLAN) IV SCH ×2 (08:20→20:48)
[2019-02-07] MEDS: LACTULOSE SYRUP 10GM/15ML (ENULOSE) 30ML UDC PO SCH ×3 (08:20→20:37)
[2019-02-07] MEDS: PANTOPRAZOLE 40 MG (PROTONIX) VIAL IV SCH ×2 (08:20→20:48)
--- NOTE | 2019-02-07 09:14 | Diagnostic Imaging Report ---
INDICATION: Ventilator followup. COMPARISON: 02/06/2019. FINDINGS: ET tube and NG tube remain in good position. There continues to be some basilar atelectasis on the right. Left lung is well-aerated and clear. The upper lungs are clear. Heart is not enlarged. IMPRESSION: 1. Tubes and lines in good position. 2. Persistent right basilar atelectasis. Dictated by: Dictated on workstation # [id number]
--- NOTE | 2019-02-07 09:57 | Progress Note - Hospitalist ---
Subjective HPI/CC On Admission Date Seen by Provider: Feb 07, 2019 Time Seen by Provider: 10:15 Chief complaint: Respiratory failure History of present illness: This is a 58-year-old white male clinic patient of Dr. shaffer of [facility] who presented to the [place] ER after syncopal episode. Work-up ensued revealing alcohol withdrawal and respiratory failure with ABG showing pH of 7.1 and CO2 of 90 with CO2 retention. He was emergently intubated moved to [facility] ICU for pulmonary expertise. At this current time mother is at the bedside and she apparently does not know how much alcohol he drinks on a regular basis which seems to be a lifelong addiction issue. We will monitor the situation closely and maintain ventilator. Subjective/Events-last exam Abdominal status improved Working on weaning patient from ventilator Mother and sister at the bedside and updated Check meds and labs Blood pressure stable Focused Exam Lactate Level 02/04/19 23:25: Lactic Acid Level 1.90 02/05/19 14:49: Lactic Acid Level 1.21 02/07/19 05:24: Lactic Acid Level 1.03 Objective Exam Vital Signs Vital Signs Date Time Temp Pulse Resp B/P (MAP) Pulse Ox O2 Delivery O2 Flow Rate FiO2 02/07/19 16:00 113 33 135/68 (90) 96 Mechanical Ventilator 40.00 02/07/19 16:00 40 02/07/19 15:45 101.0 Capillary Refill : Less Than 3 Seconds General Appearance: No Apparent Distress, WD/WN, Chronically ill Respiratory: Chest Non Tender, Lungs Clear, Normal Breath Sounds, No Accessory Muscle Use, No Respiratory Distress Cardiovascular: Regular Rate, Rhythm, No Edema, No Gallop, No JVD, No Murmur, Normal Peripheral Pulses Results/Procedures Lab Laboratory Tests 02/07/19 03:35 02/07/19 03:39 Patient resulted labs reviewed. Assessment/Plan Assessment and Plan Assess & Plan/Chief Complaint VDRF ETOH withdrawal Abdominal distention Fever placed on abx empirically Possible aspiration? Plan: Vent per Dr Mary Wu Nebs Diagnosis/Problems Diagnosis/Problems (1) Hypercapnic respiratory failure Status: Acute (2) Seizure Status: Acute (3) Alcohol abuse Status: Acute (4) Hypokalemia Status: Acute Clinical Quality Measures DVT/VTE Risk/Contraindication: Risk Factor Score Per Nursin RFS Level Per Nursing on Admit: 2=Moderate FLORES,SELENA DO Feb 07, 2019 09:57
--- NOTE | 2019-02-07 11:00 | Occ Therapy Progress Note ---
Therapy Progress Note Pt remains sedated and on vent. NSG stated plan is to extubated 02/08/19. OT Will continue to follow. SILVIO LAMAS OT Feb 07, 2019 11:00
[2019-02-07] MEDS ORDERED: TROUGH ORDER-PHARMACY XX NR (15:00)
--- NOTE | 2019-02-07 16:05 | NUR ---
Vanco - Trough from 02/07 @ 1500 = 7.9. Complete 1250mg dose @ 1600, then will start 2gm every 12 hours 02/08 @ 0000.
[2019-02-08] VITALS (33 sets, daily range): BP systolic 129–186; BP diastolic 72–114
[2019-02-08] MEDS ORDERED: VANCOMYCIN 500 MG/VIAL IV ONE (00:11)
[2019-02-08] MEDS ORDERED: VANCOMYCIN 750 MG/VIAL IV ONE (00:22)
[2019-02-08] MEDS: PROPOFOL DRIP (ICU) 100 ML IV SCH ×3 (00:46→20:26)
[2019-02-08] MEDS: VANCOMYCIN 2000 MG/NS 500 ML IVPB IV SCH ×4 (00:46→12:53)
[2019-02-08] MEDS: RT-ALBUTEROL/IPRATROPIUM 3 ML (DUONEB) VIAL INH SCH ×6 (01:34→22:10)
[2019-02-08 03:26] LABS: ABG BASE EXCESS -7.6 MMOL/L (-2.5-2.5); ABG OXYGEN SATURATION 95 % (94-100); ABG PCO2 38 MMHG (35-45); ABG PO2 81 MMHG (79-93); ABG TCO2 18.6 MMOL/L (21.0-31.0)
[2019-02-08 03:29] LABS: ABG PH 7.29 (7.37-7.43); ALLENS TEST POSITIVE; INSPIRED O2 40%; PATIENT TEMP 100.9; VENTILATOR YES
[2019-02-08 04:08] LABS: BASOPHILS % (AUTO) 0 % (0-10); EOSINOPHILS # (AUTO) 0.1 10^3/uL (0.0-0.3); EOSINOPHILS % (AUTO) 1 % (0-10); HEMATOCRIT 37 % (40-54); HEMOGLOBIN 11.9 G/DL (13.3-17.7); LYMPHOCYTES # (AUTO) 0.8 X 10^3 (1.0-4.0); LYMPHOCYTES % (AUTO) 12 % (12-44); MEAN CORPUSCULAR HEMOGLOBIN 30 PG (25-34); MEAN CORPUSCULAR HGB CONC 32 G/DL (32-36); MEAN CORPUSCULAR VOLUME 92 FL (80-99); MEAN PLATELET VOLUME 11.1 FL (7.4-10.4); MONOCYTES # (AUTO) 1.1 X 10^3 (0.0-1.0); MONOCYTES % (AUTO) 17 % (0-12); NEUTROPHILS # (AUTO) 4.4 X 10^3 (1.8-7.8); NEUTROPHILS % (AUTO) 69 % (42-75); PLATELET COUNT 124 10^3/uL (130-400); RED CELL DISTRIBUTION WIDTH 15.4 % (10.0-14.5); WHITE BLOOD COUNT 6.3 10^3/uL (4.3-11.0)
[2019-02-08 04:36] LABS: BUN/CREATININE RATIO 19; CALCIUM 7.2 MG/DL (8.5-10.1); CARBON DIOXIDE 16 MMOL/L (21-32); CHLORIDE 118 MMOL/L (98-107); CREATININE SERUM 0.68 MG/DL (0.60-1.30); GFR ESTIMATED > 60; GLUCOSE 202 MG/DL (70-105); PHOSPHORUS 1.6 MG/DL (2.3-4.7); POTASSIUM 3.6 MMOL/L (3.6-5.0); SODIUM 145 MMOL/L (135-145)
[2019-02-08] MEDS: guaiFENesin SYRUP 100 MG/5 ML 10 ML (ROBITUSSIN SF) GT SCH ×5 (04:53→20:24)
[2019-02-08] MEDS: PIPERACILLIN/TAZO 4.5 GM/NS 100 ML IV SCH ×6 (05:20→21:23)
[2019-02-08] MEDS: POTASSIUM CL 10MEQ/50ML IVPB 50 ML IV SCH ×3 (05:21→06:20)
[2019-02-08] MEDS ORDERED: SODIUM BICARB 8.4% 50 MEQ/50 ML VIAL IV ONE (05:30)
[2019-02-08] MEDS ORDERED: POTASSIUM PHOSPHATE INJ 30 MM in NS (IVPB) 250 ML IV ONE (05:30)
[2019-02-08] MEDS: MAGNESIUM 1 GM/100 ML IVPB 100 ML IV SCH (06:08)
[2019-02-08] MEDS: KCL 20 MEQ TAB (K-DUR) PO SCH (06:09)
[2019-02-08] MEDS: CATHETER FLUSH 10 ML SYR IV SCH ×2 (06:13→14:52)
[2019-02-08] MEDS: inSUlin ASPART (NovoLOG) 1 UNIT/0.01 ML (CHARGE PER UNIT) SQ SCH ×3 (06:20→18:03)
[2019-02-08] MEDS: aCETylcysteine 20% (MUCOMYST) 30ML SOLN VIAL INH SCH ×3 (06:38→22:10)
[2019-02-08 06:56] LABS: HEPATITIS C ANTIBODY C Non-Reactive (Non-Reactive)
--- NOTE | 2019-02-08 07:05 | Pulmonary Progress Note ---
Subjective Time Seen by a Provider: 07:05 Subjective/Events-last exam PT sedated on vent. Sepsis Event Evaluation Height, Weight, BMI Height: 6'1.00" Weight: 303lbs. 9.0oz. 137.094511rw; 35.6 BMI Method:Stated Focused Exam Lactate Level 02/05/19 14:49: Lactic Acid Level 1.21 02/07/19 05:24: Lactic Acid Level 1.03 02/08/19 05:50: Lactic Acid Level 0.89 Lactic Acid Level Laboratory Tests Test 02/08/19 05:50 Lactic Acid Level 0.89 MMOL/L (0.50-2.00) Exam Exam Vital Signs Date Time Temp Pulse Resp B/P (MAP) Pulse Ox O2 Delivery O2 Flow Rate FiO2 02/08/19 06:48 96 33 95 40 02/08/19 06:38 95 31 96 40 02/08/19 06:00 93 20 146/72 (96) 96 Mechanical Ventilator 40.00 02/08/19 05:00 92 27 136/76 (96) 95 Mechanical Ventilator 40.00 02/08/19 04:00 Mechanical Ventilator 40 02/08/19 04:00 91 20 143/78 (99) 94 Mechanical Ventilator 40.00 02/08/19 03:00 90 19 136/77 (96) 97 Mechanical Ventilator 40.00 02/08/19 02:00 94 22 144/81 (102) 97 Mechanical Ventilator 40.00 02/08/19 01:34 95 28 97 40 02/08/19 01:00 98 18 134/74 (94) 97 Mechanical Ventilator 40.00 02/08/19 01:00 98 02/08/19 00:46 147/82 02/08/19 00:00 Mechanical Ventilator 40 02/08/19 00:00 98 28 147/82 (103) 98 Mechanical Ventilator 40.00 02/07/19 23:00 99 24 141/82 (101) 97 Mechanical Ventilator 40.00 02/07/19 22:00 101 26 151/82 (105) 97 Mechanical Ventilator 40.00 02/07/19 21:40 101 34 97 40 02/07/19 21:00 102 25 139/82 (101) 97 Mechanical Ventilator 40.00 02/07/19 20:00 105 31 141/77 (98) 97 Mechanical Ventilator 40.00 02/07/19 20:00 Mechanical Ventilator 40 02/07/19 19:00 100.9 02/07/19 19:00 106 30 145/75 (98) 97 Mechanical Ventilator 40.00 02/07/19 19:00 106 02/07/19 18:28 105 34 96 40 02/07/19 18:00 107 32 137/78 (97) 95 Mechanical Ventilator 40.00 02/07/19 17:00 110 31 136/71 (92) 96 Mechanical Ventilator 40.00 02/07/19 16:00 113 33 135/68 (90) 96 Mechanical Ventilator 40.00 02/07/19 16:00 Mechanical Ventilator 40 02/07/19 15:45 101.0 02/07/19 15:42 112 02/07/19 15:00 101 34 135/81 (99) 96 Mechanical Ventilator 40.00 02/07/19 14:51 98 38 96 40 02/07/19 14:00 99 29 137/76 (96) 97 Mechanical Ventilator 40.00 02/07/19 13:00 101 33 135/75 (95) 96 Mechanical Ventilator 40.00 02/07/19 13:00 101 02/07/19 12:00 102 32 137/77 (97) 97 Mechanical Ventilator 40.00 02/07/19 12:00 Mechanical Ventilator 40 02/07/19 12:00 100.5 02/07/19 11:00 103 35 137/76 (96) 96 Mechanical Ventilator 40.00 02/07/19 10:57 102 02/07/19 10:13 95 36 95 40 02/07/19 10:00 95 31 129/75 (93) 97 Mechanical Ventilator 40.00 02/07/19 09:00 98 37 128/75 (92) 96 Mechanical Ventilator 40.00 02/07/19 08:50 99 02/07/19 08:00 103 33 135/74 (94) 96 Mechanical Ventilator 40.00 02/07/19 08:00 Mechanical Ventilator 40 I & O 02/08/19 07:00 Intake Total 1970 ml Output Total 4425 ml Balance -2455 ml Height & Weight Height: 6'1.00" Weight: 303lbs. 9.0oz. 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 -S/p bronchoscopy secondary to copious amounts of sputum production -Continue ventilator care. -TF - Currently on hold secondary to high residual Pneumonia - probably aspiration present at admission -Continue Zosyn Vanco -Hannon cultures pending Ileus - Reglan 10mg IV BID -Lactulose to TID -Abdomen is less distended today. -Continue IVF Alcohol withdrawal with questionable seizure activity -Banana bag -Continue to monitor Metabolic acidosis -IVF -Repeat LA Elevated LFTs and ammonia level -Check hep panel - lactulose Hypokalemia, hypomag -replace RAFAEL SOUSA DO Feb 08, 2019 07:05
[2019-02-08] MEDS: DEXMEDETOMIDINE INJECTION 1,000 MCG in NS (IVPB) 240 ML IV SCH ×4 (07:13→21:23)
[2019-02-08 07:31] LABS: ABG BASE EXCESS -6.1 MMOL/L (-2.5-2.5); ABG OXYGEN SATURATION 96 % (94-100); ABG PCO2 28 MMHG (35-45); ABG PH 7.42 (7.37-7.43); ABG PO2 78 MMHG (79-93)
[2019-02-08] MEDS: PANTOPRAZOLE 40 MG (PROTONIX) VIAL IV SCH ×2 (07:33→20:24)
[2019-02-08] MEDS: METOCLOPRAMIDE INJ 10 MG/2 ML (REGLAN) IV SCH ×2 (07:33→20:24)
[2019-02-08] MEDS: LACTULOSE SYRUP 10GM/15ML (ENULOSE) 30ML UDC PO SCH ×3 (07:33→21:23)
[2019-02-08] MEDS: APAP 325 MG/10.15 ML LIQ (TYLENOL) UDC GT PRN ×3 (07:33→21:24)
[2019-02-08 07:37] LABS: ALLENS TEST YES-POS; INSPIRED O2 40%; PATIENT TEMP 101.9; VENTILATOR YES
--- NOTE | 2019-02-08 07:40 | Diagnostic Imaging Report ---
INDICATION: Respiratory failure. Upright portable AP view of the chest is obtained with comparison made study one day earlier. FINDINGS: Heart size is at the upper limits of normal. There has been mild increase in pulmonary venous congestion. Endotracheal tube is in place with tip just below the thoracic inlet. Nasogastric tube passes below the diaphragm. There is continued basilar atelectasis and/or pneumonitis. No pneumothorax is detected. IMPRESSION: Mild increase in pulmonary venous congestion which may be due to congestive heart failure or hypervolemia. There is continued basilar atelectasis and/or pneumonitis similar to previous study. Dictated by: Dictated on workstation # [id number]
--- NOTE | 2019-02-08 08:06 | Physical Therapy Progress Note ---
Therapy Progress Note Patient currently sedated on vent. PT will require new orders when medically stable and able to actively participate. GREGG DANIELLE PT Feb 08, 2019 08:06
[2019-02-08] MEDS: D5 NS W/KCL 20 MEQ/L 1,000 ML IV SCH ×2 (08:54→20:26)
[2019-02-08] MEDS: fentaNYL INJECTION 100 MCG/2 ML AMP IVP PRN ×2 (10:33→13:47)
[2019-02-08] MEDS: LORazepam INJ 2 MG/ML (ATIVAN) VIAL IVP PRN ×3 (11:24→18:03)
--- NOTE | 2019-02-08 13:03 | Occ Therapy Progress Note ---
Therapy Progress Note Pt. continues on ventilation support. 1303 ETHAN DAVIDSON OT Feb 08, 2019 13:03
--- NOTE | 2019-02-08 14:50 | Progress Note ---
Subjective Subjective/Events-last exam Febrile to 101.9 this am. Having good stool output per nursing. Focused Exam Lactate Level 02/07/19 05:24: Lactic Acid Level 1.03 02/08/19 05:50: Lactic Acid Level 0.89 Objective Exam Last Set of Vital Signs Vital Signs Date Time Temp Pulse Resp B/P (MAP) Pulse Ox O2 Delivery O2 Flow Rate FiO2 02/08/19 12:00 101.6 02/08/19 12:00 Mechanical Ventilator 40 02/08/19 11:17 30.00 02/08/19 11:09 88 27 96 02/08/19 11:00 174/94 (120) Capillary Refill : Less Than 3 Seconds I&O Intake and Output 02/08/19 00:00 Intake Total 4132.5 ml Output Total 4025 ml Balance 107.5 ml IV Total 3862.5 ml Tube Feeding 270 ml Output Urine Total 3825 ml Gastric Drainage Total 200 ml General: Other (intubated) Lungs: Other (ronchi) Heart: Regular Rate, No Murmurs Abdomen: Other (distended, hypoactive bowel sounds) Extremities: No Edema Results/Procedures Lab Laboratory Tests 02/07/19 15:21: Vancomycin Level Trough 7.9L 02/07/19 18:34: Glucometer 184H 02/07/19 23:52: Glucometer 190H 02/08/19 03:21: Blood Gas Puncture Site RIGHT RADIAL, Blood Gas Patient Temperature 100.9, Arterial Blood pH 7.29*L, Arterial Blood Partial Pressure CO2 38, Arterial Blood Partial Pressure O2 81, Arterial Blood HCO3 18L, Arterial Blood Total CO2 18.6L, Arterial Blood Oxygen Saturation 95, Arterial Blood Base Excess -7.6L, Eliecer Test POSITIVE, Blood Gas Ventilator Setting YES, Blood Gas Inspired Oxygen 40% 02/08/19 03:33: White Blood Count 6.3, Red Blood Count 4.01L, Hemoglobin 11.9L, Hematocrit 37L, Mean Corpuscular Volume 92, Mean Corpuscular Hemoglobin 30, Mean Corpuscular Hemoglobin Concent 32, Red Cell Distribution Width 15.4H, Platelet Count 124L, Mean Platelet Volume 11.1H, Neutrophils (%) (Auto) 69, Lymphocytes (%) (Auto) 12, Monocytes (%) (Auto) 17H, Eosinophils (%) (Auto) 1, Basophils (%) (Auto) 0, Neutrophils # (Auto) 4.4, Lymphocytes # (Auto) 0.8L, Monocytes # (Auto) 1.1H, Eosinophils # (Auto) 0.1, Basophils # (Auto) 0.0, Sodium Level 145, Potassium Level 3.6, Chloride Level 118H, Carbon Dioxide Level 16L, Anion Gap 11, Blood Urea Nitrogen 13, Creatinine 0.68, Estimat Glomerular Filtration Rate > 60, BUN/Creatinine Ratio 19, Glucose Level 202H, Calcium Level 7.2L, Phosphorus Level 1.6L, Magnesium Level 2.0 02/08/19 05:50: Lactic Acid Level 0.89, Ammonia 28 02/08/19 07:25: Blood Gas Puncture Site RT RADIAL, Blood Gas Patient Temperature 101.9, Arterial Blood pH 7.42, Arterial Blood Partial Pressure CO2 28L, Arterial Blood Partial Pressure O2 78L, Arterial Blood HCO3 17*L, Arterial Blood Total CO2 18.0L, A rterial Blood Oxygen Saturation 96, Arterial Blood Base Excess -6.1L, Eliecer Test YES-POS, Blood Gas Ventilator Setting YES, Blood Gas Inspired Oxygen 40% 02/08/19 11:52: Glucometer 225H Microbiology 02/03/19 Blood Culture - Preliminary, Resulted No growth 02/06/19 Mycobacterial Culture - Preliminary, Resulted 02/04/19 Urine Culture - Final, Complete NO GROWTH Assessment/Plan Assessment/Plan (1) Hypercapnic respiratory failure Status: Acute Assessment & Plan: Management per Dr. Hernandez. Improving pH and PCO2, remains intubated. On nebulizer treatments as well as acetylcysteine. Qualifiers: Qualified Codes: J96.02 - Acute respiratory failure with hypercapnia (2) Pneumonia Status: Acute Assessment & Plan: Zosyn and vancomycin, bronch with staph Qualifiers: (3) Fatty liver Status: Acute Assessment & Plan: Noted on abdominal CT. Suspect alcoholic hepatitis. (4) Thrombocytopenia Status: Acute Assessment & Plan: Improving, concerning given his fatty liver and alcoholism. Monitor closely. (5) Hyperammonemia Status: Resolved Assessment & Plan: Started on lactulose, improved. (6) Elevated LFTs Status: Acute Assessment & Plan: Suspect alcoholic hepatitis/fatty liver. Hep panel and HIV neg. (7) Hematuria Status: Acute Assessment & Plan: Urine culture negative, no obstructing stone or noted renal abnormality (2 mm nonobstructing left stone) on CT, may need cystoscopy in future if persists. (8) Ileus Status: Acute Assessment & Plan: CT concerning for ileus vs SBO. NG in place, having adequate stool output per nursing. On IV reglan. (9) DVT prophylaxis Status: Acute Assessment & Plan: Low risk on admission scoring. Clinical Quality Measures DVT/VTE Risk/Contraindication: Risk Factor Score Per Nursin RFS Level Per Nursing on Admit: 2=Moderate HAILEY STEWART MD Feb 08, 2019 14:50
[2019-02-08] MEDS: hydrALAZINE (APESOLINE) 20 MG/ML VIAL IV PRN (14:51)
--- NOTE | 2019-02-08 15:52 | Pulmonary Procedures ---
Pulmonary Procedures Date of Procedure Date of Service: Feb 06, 2019 (late note) Bronch Bronchoscopy with bilateral washes. Preop DX mucous plugging Postop DX: same Complications: none After informed consent obtained and formal time out pt was sedated using Fentanyl and Versed. Bronchoscope was advanced through ET tube 1% lidocaine was used to anesthetize rosalia, and left/right main stem bronchus. An anatomical tour was undertaken down to the segmental bronchi bilaterally. No endobronchial lesions noted. Bilat bronchial washes were obtained. Pt tolerated procedure well. No complications noted. Stat CXR is pending. RAFAEL SOUSA DO Feb 08, 2019 15:51
[2019-02-09] VITALS (25 sets, daily range): BP systolic 129–185; BP diastolic 72–97
[2019-02-09] MEDS: CATHETER FLUSH 10 ML SYR IV SCH ×4 (00:10→22:07)
[2019-02-09] MEDS: VANCOMYCIN 2000 MG/NS 500 ML IVPB IV SCH ×2 (00:10)
[2019-02-09] MEDS: guaiFENesin SYRUP 100 MG/5 ML 10 ML (ROBITUSSIN SF) GT SCH (00:10)
[2019-02-09] MEDS: inSUlin ASPART (NovoLOG) 1 UNIT/0.01 ML (CHARGE PER UNIT) SQ SCH ×5 (00:43→22:07)
[2019-02-09] MEDS: LORazepam INJ 2 MG/ML (ATIVAN) VIAL IVP PRN (00:44)
[2019-02-09] MEDS: PROPOFOL DRIP (ICU) 100 ML IV SCH (00:44)
[2019-02-09] MEDS: DEXMEDETOMIDINE INJECTION 1,000 MCG in NS (IVPB) 240 ML IV SCH ×2 (02:37→08:10)
[2019-02-09] MEDS: RT-ALBUTEROL/IPRATROPIUM 3 ML (DUONEB) VIAL INH SCH ×6 (02:40→22:53)
[2019-02-09 03:04] LABS: ABG BASE EXCESS -4.5 MMOL/L (-2.5-2.5); ABG OXYGEN SATURATION 95 % (94-100); ABG PCO2 37 MMHG (35-45); ABG PH 7.35 (7.37-7.43); ABG PO2 70 MMHG (79-93); ABG TCO2 21.4 MMOL/L (21.0-31.0)
[2019-02-09 03:06] LABS: ALLENS TEST POSITIVE; INSPIRED O2 45%; PATIENT TEMP 97.7; VENTILATOR YES
[2019-02-09 03:29] LABS: BASOPHILS % (AUTO) 0 % (0-10); EOSINOPHILS # (AUTO) 0.1 10^3/uL (0.0-0.3); EOSINOPHILS % (AUTO) 2 % (0-10); HEMATOCRIT 36 % (40-54); HEMOGLOBIN 11.9 G/DL (13.3-17.7); LYMPHOCYTES # (AUTO) 0.8 X 10^3 (1.0-4.0); LYMPHOCYTES % (AUTO) 15 % (12-44); MEAN CORPUSCULAR HEMOGLOBIN 30 PG (25-34); MEAN CORPUSCULAR HGB CONC 33 G/DL (32-36); MEAN CORPUSCULAR VOLUME 91 FL (80-99); MEAN PLATELET VOLUME 10.2 FL (7.4-10.4); MONOCYTES # (AUTO) 0.7 X 10^3 (0.0-1.0); MONOCYTES % (AUTO) 13 % (0-12); NEUTROPHILS # (AUTO) 4.1 X 10^3 (1.8-7.8); NEUTROPHILS % (AUTO) 71 % (42-75); PLATELET COUNT 137 10^3/uL (130-400); RED CELL DISTRIBUTION WIDTH 15.6 % (10.0-14.5); WHITE BLOOD COUNT 5.7 10^3/uL (4.3-11.0)
--- NOTE | 2019-02-09 03:47 | Pulmonary Progress Note ---
BETTY MC,MED STUDENT 02/09/19 0347: Subjective Date Seen by a Provider: Feb 09, 2019 Time Seen by a Provider: 03:35 Subjective/Events-last exam Patient is on a ventilator and under sedation. Sepsis Event Evaluation Height, Weight, BMI Height: 6'1.00" Weight: 303lbs. 9.0oz. 137.304673mu; 35.6 BMI Method:Stated Focused Exam Lactate Level 02/07/19 05:24: Lactic Acid Level 1.03 02/08/19 05:50: Lactic Acid Level 0.89 Exam Exam Vital Signs Date Time Temp Pulse Resp B/P (MAP) Pulse Ox O2 Delivery O2 Flow Rate FiO2 02/09/19 02:40 79 21 94 45 02/09/19 02:00 80 23 131/74 (93) 96 Mechanical Ventilator 45.00 02/09/19 01:00 82 02/09/19 01:00 82 19 136/75 (95) 95 Mechanical Ventilator 45.00 02/09/19 00:45 Mechanical Ventilator 50 02/09/19 00:44 99.4 84 134/74 Mechanical Ventilator 45.00 02/09/19 00:09 98.4 02/09/19 00:00 85 21 134/75 (94) 93 Mechanical Ventilator 45.00 02/08/19 23:00 88 21 132/78 (96) 93 Mechanical Ventilator 45.00 02/08/19 22:15 Mechanical Ventilator 45.00 02/08/19 22:10 87 21 96 45 02/08/19 21:24 102.5 02/08/19 21:00 92 22 135/77 (96) 95 Mechanical Ventilator 50.00 02/08/19 20:45 102.5 100 19 159/85 (109) 95 02/08/19 20:26 102.5 96 26 144/77 95 Mechanical Ventilator 50.00 02/08/19 20:02 Mechanical Ventilator 50 02/08/19 20:00 98 49 156/86 (109) 93 Mechanical Ventilator 50.00 02/08/19 19:00 106 30 160/93 (115) 95 Mechanical Ventilator 50.00 02/08/19 19:00 106 02/08/19 18:15 107 31 95 50 02/08/19 18:12 Mechanical Ventilator 50.00 02/08/19 18:00 113 36 171/85 (113) 90 Mechanical Ventilator 40.00 02/08/19 17:49 180/90 02/08/19 17:28 94 35 95 30 02/08/19 17:00 95 24 172/86 (114) 96 Mechanical Ventilator 40.00 02/08/19 16:12 102.2 98 19 170/99 (122) 95 02/08/19 16:00 100 37 165/94 (117) 95 Mechanical Ventilator 40.00 02/08/19 15:30 Mechanical Ventilator 40 02/08/19 15:26 102.6 02/08/19 15:16 99 38 94 30 02/08/19 15:00 98 37 176/97 (123) 93 Mechanical Ventilator 40.00 02/08/19 14:00 92 26 185/93 (123) 92 Mechanical Ventilator 40.00 02/08/19 13:00 96 02/08/19 13:00 97 24 186/101 (129) 95 Mechanical Ventilator 40.00 02/08/19 12:00 101.6 02/08/19 12:00 Mechanical Ventilator 40 02/08/19 12:00 97 28 165/94 (117) 94 Mechanical Ventilator 40.00 02/08/19 11:17 Mechanical Ventilator 30.00 02/08/19 11:09 88 27 96 40 02/08/19 11:00 89 27 174/94 (120) 96 Mechanical Ventilator 40.00 02/08/19 10:00 90 27 180/93 (122) 97 Mechanical Ventilator 40.00 02/08/19 09:00 97 35 172/92 (118) 97 Mechanical Ventilator 40.00 02/08/19 08:00 Mechanical Ventilator 40 02/08/19 08:00 94 28 165/82 (109) 95 Mechanical Ventilator 40.00 02/08/19 07:33 101.9 02/08/19 07:00 98 26 162/88 (112) 96 Mechanical Ventilator 40.00 02/08/19 07:00 94 02/08/19 06:48 96 33 95 40 02/08/19 06:38 95 31 96 40 02/08/19 06:00 93 20 146/72 (96) 96 Mechanical Ventilator 40.00 02/08/19 05:00 92 27 136/76 (96) 95 Mechanical Ventilator 40.00 02/08/19 04:00 Mechanical Ventilator 40 02/08/19 04:00 91 20 143/78 (99) 94 Mechanical Ventilator 40.00 I & O 02/09/19 07:00 Intake Total 2950 ml Output Total 3550 ml Balance -600 ml Height & Weight Height: 6'1.00" Weight: 303lbs. 9.0oz. 137.770868gc; 35.6 BMI Method:Stated General Appearance: No Apparent Distress, WD/WN, Obese, Other (intubated and sedated) Respiratory: Chest Non Tender, Lungs Clear, No Accessory Muscle Use, No Respiratory Distress, Pleural Rub Cardiovascular: Regular Rate, Rhythm, No Edema, No Murmur, Normal Peripheral Pulses Capillary Refill: Less Than 3 Seconds Peripheral Pulses: 2+ Radial Pulses (R), 2+ Radial Pulses (L) Gastrointestinal: normal bowel sounds, soft Extremity: Normal Capillary Refill, Normal Inspection, Normal Range of Motion, Non Tender, No Pedal Edema Neurologic/Psychiatric: Other (appears anxious and jittery) Skin: Normal Color, Warm/Dry Results Lab Laboratory Tests 02/08/19 03:33 02/09/19 03:21 Assessment/Plan Assessment/Plan Acute hypercapnia respiratory failure - resolved Alcohol withdraw - follow CIWA protocol upon extubation - 2mg lorazepam Q8hrs X 8doses uncompensated metabolic acidosis - atelectasis or pneumonitis - repeat CXR = pending pleural friction rub HTN - give hydralazine - hold home meds - consider restarting after extubation IDDMII - hold metformin and dapagliflozin - give basal and rapid acting insulin FENGIPPx NS @ 75ml/hr NPO PPI because on vent >48hrs RAFAEL Moyer DO 02/09/19 0540: Subjective Date Seen by a Provider: Feb 09, 2019 Time Seen by a Provider: 05:32 Subjective/Events-last exam Sedated on vent. Exam Exam General Appearance: No Apparent Distress, WD/WN, Obese, Other (intubated and sedated) Respiratory: Chest Non Tender, Lungs Clear, No Accessory Muscle Use, No Respiratory Distress, Pleural Rub Cardiovascular: Regular Rate, Rhythm, No Edema, No Murmur, Normal Peripheral Pulses Extremity: Normal Capillary Refill, Normal Inspection, Normal Range of Motion, Non Tender, No Pedal Edema Skin: Normal Color, Warm/Dry Assessment/Plan Assessment/Plan Acute respiratory failure -D/C Propofol, Precedex -Will give Lasix 60mg daily. -Will try to wean vent to extubation today. -S/p bronchoscopy secondary to copious amounts of sputum production -Continue ventilator care. -TF - Currently on hold secondary to high residual Pneumonia - probably MSSA (Tm 102.5) -MRSA swab is negative. D/C vanco -Continue Zosyn -Hannon cultures pending Ileus- Resolved - D/c Reglan -Lactulose - D/c -D/c IVF Alcohol withdrawal with questionable seizure activity -Banana bag -Continue to monitor Metabolic acidosis -IVF -Repeat LA Elevated LFTs and ammonia level -Check hep panel Hypokalemia, hypophos -replace Verification and Attestation of Medical Student E/M Service A medical student performed and documented this service in my presence. I reviewed and verified all information documented by the medical student and made modifications to such information, when appropriate. I personally performed the physical exam and medical decision making. Rafael Hernandez, Feb 10, 2019,03:49 Supervisory-Addendum Brief Verification & Attestation Participated in pt care: history, physical Personally performed: exam, supervision of care Care discussed with: Medical Student Procedures: n/a Verification and Attestation of Medical Student E/M Service A medical student performed and documented this service in my presence. I reviewed and verified all information documented by the medical student and made modifications to such information, when appropriate. I personally performed the physical exam and medical decision making. Rafael Hernandez, Feb 10, 2019,03:50 BETTY MC,MED STUDENT Feb 09, 2019 03:47 RAFAEL HERNANDEZ DO Feb 09, 2019 05:40
[2019-02-09 03:51] LABS: ALANINE AMINOTRANSFERASE 39 U/L (0-55); ALBUMIN 2.7 GM/DL (3.2-4.5); ALKALINE PHOSPHATASE 50 U/L (40-136); BILIRUBIN,DIRECT 0.3 MG/DL (0.0-0.3); BILIRUBIN,INDIRECT 0.2 MG/DL; BILIRUBIN,TOTAL 0.5 MG/DL (0.1-1.0); BUN/CREATININE RATIO 20; CALCIUM 7.2 MG/DL (8.5-10.1); CARBON DIOXIDE 19 MMOL/L (21-32); CHLORIDE 116 MMOL/L (98-107); CREATININE SERUM 0.59 MG/DL (0.60-1.30); GFR ESTIMATED > 60; GLUCOSE 171 MG/DL (70-105); MAGNESIUM 1.8 MG/DL (1.6-2.4); PHOSPHORUS 1.5 MG/DL (2.3-4.7); POTASSIUM 3.4 MMOL/L (3.6-5.0); SODIUM 146 MMOL/L (135-145); TOTAL PROTEIN 5.4 GM/DL (6.4-8.2)
[2019-02-09] MEDS ORDERED: FUROSEMIDE 40 MG/4 ML INJ (LASIX) IVP ONE (05:15)
[2019-02-09] MEDS ORDERED: POTASSIUM PHOSPHATE INJ 30 MM in NS (IVPB) 250 ML IV ONE (05:30)
[2019-02-09] MEDS: POTASSIUM CL 10MEQ/50ML IVPB 50 ML IV SCH ×4 (05:34→08:13)
[2019-02-09] MEDS: PIPERACILLIN/TAZO 4.5 GM/NS 100 ML IV SCH ×2 (05:34)
[2019-02-09] MEDS: KCL 20 MEQ TAB (K-DUR) PO SCH (05:37)
[2019-02-09] MEDS: MAGNESIUM 1 GM/100 ML IVPB 100 ML IV SCH (05:37)
--- NOTE | 2019-02-09 06:03 | Diagnostic Imaging Report ---
Portable erect AP chest 1242 hours. INDICATION: Respiratory distress. FINDINGS: The cardiomegaly noted on the prior exam of 02/08/2019 is again evident and no different. The central pulmonary vascularity, however is not quite as prominent as on the prior exam and the lung bases do seem better aerated. The mediastinum is not widened. The osseous structures are intact. The supportive tubes and lines appear to be in good position. IMPRESSION: The appearance of the chest has improved since the prior exam as there is less pulmonary congestion and the lung bases do seem better aerated. A followup exam would be recommended for continued evaluation. Dictated by: Dictated on workstation # [id number]
[2019-02-09] MEDS: PANTOPRAZOLE 40 MG (PROTONIX) VIAL IV SCH ×2 (07:37→22:04)
--- NOTE | 2019-02-09 08:34 | Occ Therapy Progress Note ---
Therapy Progress Note Pt. continues to be on mechanical ventilation and sedation. OT following to begin skilled therapy when medically appropriate. [id number] ETHAN DAVDISON OT Feb 09, 2019 08:33
[2019-02-09] MEDS: cefTRIAXone FOR IV USE 1,000 MG in WATER (STERILE) FOR INJECTION 10 ML IV SCH (09:20)
[2019-02-09] MEDS: APAP 325 MG/10.15 ML LIQ (TYLENOL) UDC GT PRN (10:34)
--- NOTE | 2019-02-09 10:38 | Physical Therapy Progress Note ---
Therapy Progress Note Patient still on vent and sedated. Will check back tomorrow. VANIA GREEN PT Feb 09, 2019 10:38
[2019-02-09 10:56] LABS: ABG BASE EXCESS -4.1 MMOL/L (-2.5-2.5); ABG OXYGEN SATURATION 96 % (94-100); ABG PCO2 29 MMHG (35-45); ABG PH 7.44 (7.37-7.43); ABG PO2 78 MMHG (79-93); ABG TCO2 19.7 MMOL/L (21.0-31.0); ALLENS TEST YES-POS; INSPIRED O2 45%; VENTILATOR YES
[2019-02-09 10:57] LABS: PATIENT TEMP 102.3
[2019-02-09] MEDS ORDERED: TROUGH ORDER-PHARMACY XX NR (11:00)
--- NOTE | 2019-02-09 11:33 | NUR ---
PT EXTUBATED AND RESTRAINTS REMOVED AT THIS TIME. PT PLACED ON VAPOTHERM AT 15L. PT TOLERATED WELL.
[2019-02-09] MEDS: fentaNYL INJECTION 100 MCG/2 ML AMP IVP PRN (14:36)
--- NOTE | 2019-02-09 14:59 | Progress Note ---
Subjective Subjective/Events-last exam Seen at 0920, febrile to 102.5 overnight, remains ventilated, plan for extubation later this am. Focused Exam Lactate Level 02/07/19 05:24: Lactic Acid Level 1.03 02/08/19 05:50: Lactic Acid Level 0.89 Objective Exam Last Set of Vital Signs Vital Signs Date Time Temp Pulse Resp B/P (MAP) Pulse Ox O2 Delivery O2 Flow Rate FiO2 02/09/19 14:37 97 Vapotherm 15.00 50 02/09/19 12:48 100.7 02/09/19 09:49 105 37 02/09/19 09:00 159/79 (105) Capillary Refill : Less Than 3 Seconds I&O Intake and Output 02/09/19 00:00 Intake Total 3150 ml Output Total 4850 ml Balance -1700 ml Intake Oral 0 ml IV Total 2970 ml Tube Feeding 60 ml Other 120 ml Output Urine Total 4700 ml Gastric Drainage Total 150 ml General: Other (intubated, mildly agitated) Lungs: Other (expiratory wheeze) Heart: Regular Rate, No Murmurs Abdomen: Other (distended, hypoactive bowel sounds) Extremities: No Edema Results/Procedures Lab Laboratory Tests 02/08/19 17:28: Glucometer 174H 02/09/19 00:06: Glucometer 204H 02/09/19 02:57: Blood Gas Puncture Site LEFT RADIAL, Blood Gas Patient Temperature 97.7, Arterial Blood pH 7.35L, Arterial Blood Partial Pressure CO2 37, Arterial Blood Partial Pressure O2 70L, Arterial Blood HCO3 20L, Arterial Blood Total CO2 21.4, Arterial Blood Oxygen Saturation 95, Arterial Blood Base Excess -4.5L, Eliecer Test POSITIVE, Blood Gas Ventilator Setting YES, Blood Gas Inspired Oxygen 45% 02/09/19 03:21: White Blood Count 5.7, Red Blood Count 3.95L, Hemoglobin 11.9L, Hematocrit 36L, Mean Corpuscular Volume 91, Mean Corpuscular Hemoglobin 30, Mean Corpuscular Hemoglobin Concent 33, Red Cell Distribution Width 15.6H, Platelet Count 137, Mean Platelet Volume 10.2, Neutrophils (%) (Auto) 71, Lymphocytes (%) (Auto) 15, Monocytes (%) (Auto) 13H, Eosinophils (%) (Auto) 2, Basophils (%) (Auto) 0, Ne utrophils # (Auto) 4.1, Lymphocytes # (Auto) 0.8L, Monocytes # (Auto) 0.7, Eosinophils # (Auto) 0.1, Basophils # (Auto) 0.0, Sodium Level 146H, Potassium Level 3.4L, Chloride Level 116H, Carbon Dioxide Level 19L, Anion Gap 11, Blood Urea Nitrogen 12, Creatinine 0.59L, Estimat Glomerular Filtration Rate > 60, BUN/Creatinine Ratio 20, Glucose Level 171H, Calcium Level 7.2L, Phosphorus Level 1.5L, Magnesium Level 1.8, Total Bilirubin 0.5, Direct Bilirubin 0.3, Indirect Bilirubin 0.2, Aspartate Amino Transf (AST/SGOT) 34, Alanine Aminotransferase (ALT/SGPT) 39, Alkaline Phosphatase 50, Total Protein 5.4L, Albumin 2.7L 02/09/19 05:36: Glucometer 137H 02/09/19 10:45: Blood Gas Puncture Site LT BRACH, Blood Gas Patient Temperature 102.3, Arterial Blood pH 7.44H, Arterial Blood Partial Pressure CO2 29L, Arterial Blood Partial Pressure O2 78L, Arterial Blood HCO3 19L, Arterial Blood Total CO2 19.7L, Arterial Blood Oxygen Saturation 96, Arterial Blood Base Excess -4.1L, Eliecer Test YES-POS, Blood Gas Ventilator Setting YES, Blood Gas Inspired Oxygen 45% 02/09/19 13:17: Glucometer 182H Microbiology 02/03/19 Blood Culture - Final, Complete No growth 02/06/19 Mycobacterial Culture - Preliminary, Resulted 02/04/19 Urine Culture - Final, Complete NO GROWTH Assessment/Plan Assessment/Plan (1) Hypercapnic respiratory failure Status: Acute Assessment & Plan: Management per Dr. Hernandez. Improving pH and PCO2, remains intubated. On nebulizer treatments as well as acetylcysteine. 02/09 plan for extubation later this am if possible. Qualifiers: Qualified Codes: J96.02 - Acute respiratory failure with hypercapnia (2) Pneumonia Status: Acute Assessment & Plan: Zosyn and vancomycin, bronch with staph 02/09 continue Zosyn Qualifiers: (3) Fatty liver Status: Acute Assessment & Plan: Noted on abdominal CT. Suspect alcoholic hepatitis. (4) Thrombocytopenia Status: Resolved Assessment & Plan: Improving, concerning given his fatty liver and alcoholism. Monitor closely. (5) Hyperammonemia Status: Resolved Assessment & Plan: Started on lactulose, improved. (6) Elevated LFTs Status: Resolved Assessment & Plan: Suspect alcoholic hepatitis/fatty liver. Hep panel and HIV neg. (7) Hematuria Status: Acute Assessment & Plan: Urine culture negative, no obstructing stone or noted renal abnormality (2 mm nonobstructing left stone) on CT, may need cystoscopy in future if persists. (8) Ileus Status: Acute Assessment & Plan: CT concerning for ileus vs SBO. NG in place, having adequate stool output per nursing. On IV reglan. (9) DVT prophylaxis Status: Acute Assessment & Plan: Low risk on admission scoring. Clinical Quality Measures DVT/VTE Risk/Contraindication: Risk Factor Score Per Nursin RFS Level Per Nursing on Admit: 2=Moderate HAILEY STEWART MD Feb 09, 2019 14:59
--- NOTE | 2019-02-09 15:39 | Occupational Therapy Eval ---
OT Evaluation-General/PLF Medical Diagnosis Admission Date Feb 03, 2019 at 14:25 Medical Diagnosis: Acute Hypercapina resp. failure Onset Date: Feb 09, 2019 Therapy Diagnosis Therapy Diagnosis: impaired ADLS and mobility Height/Weight Height (Feet): 6 Height (Inches): 1.00 Weight (Pounds): 291 Weight (Ounces): 2.0 Precautions Precautions/Isolations: Fall Prevention, Standard Precautions Safety Interventions: Notify Family, Place Restraint, Reorient-Attempt, Reorient-PRN Weight Bear Status Weight Bearing Restriction: Weight Bearing/Tolerated Referral Referral Reason: Activity Tolerance, Self Care, Evaluation/Treatment, Strengthening/ROM Medical History Current History per H&P: "History of present illness: This is a 58-year-old white male clinic patient of Dr. shaffer of [facility] who presented to the [place] ER after syncopal episode. Work-up ensued revealing alcohol withdrawal and respiratory failure with ABG showing pH of 7.1 and CO2 of 90 with CO2 retention. He was emergently intubated moved to [facility] ICU for pulmonary expertise. At this current time mother is at the bedside and she apparently does not know how much alcohol he drinks on a regular basis which seems to be a lifelong addiction issue. We will monitor the situation closely and maintain ventilator." pt extubated 02/09/19 Reviewed History: Yes Social History Home: Single Level Current Living Status: Significant Other pt not oriented and confused. unable to obtain accurate history. ADL-Prior Level of Function Therapy Code Descriptions/Definitions Functional [place] Measure: 0=Not Assessed/NA 4=Minimal Assistance 1=Total Assistance 5=Supervision or Setup 2=Maximal Assistance 6=Modified [place] 3=Moderate Assistance 7=Complete [place] Therapy Quality Codes: 6 Independent with activity with or without an assistive device 5 Patient requires set up or clean up by helper. Patient completes activity by themselves 4 Supervision or touching assist (CGA). [place] provide cues , steadying assist 3 The helper provides less than half the effort to complete the activity 2 The helper provides more than half the effort to complete the activity 1 Dependent. The helper does all the effort to complete an activity 7 Patient refused to complete or attempt activity 9 The patient did not perform the activity before the current illness or injury 88 Not attempted due to Medical conditions or safety concerns Functional Abilities and Goals: Independent: Patient completed the activities by him/herself, with or without an assistive device, with no assistance from a helper. Needed Some Help: Patient needed partial assistance from another person to complete activities. Dependent: A helper completed the activities for the patient. Unknown: Not Applicable: ADL PLOF Comments pt not oriented and confused. unable to obtain accurate history. pt mother was present in room but unable to provide information. Self Care: Unknown Functional Cognition: Unknown Drive Self: Yes OT Current Status Subjective pt laying in bed upon OT arrival. pt mother present in room. pt confused and demo decrease attention to task Mental Status/Objective Patient Orientation: Confused (pt not oriented ) Attachments: Petersen Catheter, IV, Oxygen, SCD's, Telemetry Current Upper Extremity ROM shoulder flexion RUE approx 40 degrees L shoulder flexion approx. 30 degrees elbow flexion approx 20 degrees miladys elbows wrist WNL Digits: WNL Upper Extremity Coordination impaired miladys UE Upper Extremity Sensation light touch WNL miladys UE Upper Extremity Strength 1+/5 MMT impaired miladys UE ADL-Treatment Therapy Code Descriptions/Definitions Functional [place] Measure: 0=Not Assessed/NA 4=Minimal Assistance 1=Total Assistance 5=Supervision or Setup 2=Maximal Assistance 6=Modified [place] 3=Moderate Assistance 7=Complete [place] Therapy Quality Codes: 6 Independent with activity with or without an assistive device 5 Patient requires set up or clean up by helper. Patient completes activity by themselves 4 Supervision or touching assist (CGA). [place] provide cues , steadying assist 3 The helper provides less than half the effort to complete the activity 2 The helper provides more than half the effort to complete the activity 1 Dependent. The helper does all the effort to complete an activity 7 Patient refused to complete or attempt activity 9 The patient did not perform the activity before the current illness or injury 88 Not attempted due to Medical conditions or safety concerns Eating (FIM): 1 Grooming (FIM): 1 Bathing (FIM): 1 Upper Body Dressing (FIM): 1 Lower Body Dressing (FIM): 1 Toileting (FIM): 1 Transfers (B, C, W/C) (FIM): 1 Toilet/Commode Transfer (FIM): 1 Co- evaluation completed with PT secondary of complexity of deficits requiring skills of both disciplines. based on EVAL only and clinical judgement. pt perform bed mobility X3 person assist to perform supine to sit. stand NT this date secondary to safety. pt required TA to maintain static seated balance. note d pt confused and demo decrease attention to tasks and easily distracted. pt required TA to perform sit to supine. post session, pt laying in bed, all 4 rail up, bed alarm on, all needs met. NSG aware of pt position. pt mother present in room. OT Short Term Goals Short Term Goals Eating(FIM): 2 Grooming(FIM): 2 1=Demonstrate adherence to instructed precautions during ADL tasks. 2=Patient will verbalize/demonstrate understanding of assistive devices/modifications for ADL. 3=Patient will improve strength/tolerance for activity to enable patient to perform ADL's. OT Engineering Mechanic Goals Engineering Mechanic Goals Time Frame: Mar 02, 2019 Eating (FIM): 5 Grooming(FIM): 5 Bathing(FIM): 5 Upper Body Dressing(FIM): 5 Lower Body Dressing(FIM): 5 Toileting(FIM): 5 Transfers (B,C,W/C) (FIM): 5 Toilet/Commode Transfer(FIM): 5 Additional Goals: 1-Demonstrate ADL Tasks, 2-Verbalize Understanding, 3- ImproveStrength/Marek 1=Demonstrate adherence to instructed precautions during ADL tasks. 2=Patient will verbalize/demonstrate understanding of assistive devices/modifications for ADL. 3=Patient will improve strength/tolerance for activity to enable patient to perform ADL's. OT Education/Plan Problem List/Assessment Assessment: Decreased Activ Tolerance, Decreased Safety Aware, Decreased UE Strength, Dependent Transfers, Edema, Impaired Bed Mobility, Impaired Cognition, Impaired Coordination, Impaired Funct Balance, Impaired I ADL's, Impaired Self- Care Skills, Restricted Funct UE ROM Discharge Recommendations Plan/Recommendations: Continue POC Therapy Discharge Recommendati: 24 Hour Supervision, Post Acute OT Treatment Plan/Plan of Care Treatment,Training & Education: Yes Patient would benefit from OT for education, treatment and training to promote independence in ADL's, mobility, safety and/or upper extremity function for ADL's. Plan of Care: ADL Retraining, Caregiver Training, Functional Mobility, Group Exercise/Act as Ind, UE Funct Exercise/Act Treatment Duration: Mar 02, 2019 Frequency: 5 times per week Estimated Hrs Per Day: .25 hour per day Agreement: Yes Rehab Potential: Guarded Time/GCodes Start Time: 15:14 Stop Time: 15:30 Billed Treatment Time EV 16 minutes SILVIO LAMAS OT Feb 09, 2019 15:39
--- NOTE | 2019-02-09 15:47 | ST Dysphagia Evaluation ---
Speech Evaluation-General Medical Diagnosis Respiratory failure Onset Date: Feb 04, 2019 Therapy Diagnosis Therapy Diagnosis: Oropharyngeal Dysphagia Precautions Precautions: Aspiration Precautions/Isolations: Aspiration, Fall Prevention, Standard Precautions Referral Referring Physician: Dr. Hernandez Reason for Referral: Evaluation/Treatment Medical History Pertinent Medical History: Alcoholism Alcoholism Current History Respiratory failure Reviewed History: Yes Social History Home: Single Level Current Living Status: Alone Speech PLF/Current-Dysphagia Prior Level of Function The patient lived in his home and was able to meet his daily needs. Subjective The patient was pleasant and cooperative with the Bedside Dysphagia Evaluation Cognitive Status Patient Orientation: Person, Confused Patient thinks he had back surgery. Oral Motor Skills Dentition: Natural Ability to Follow Directions: Fair Patient was NPO pending BDE Oral Expression Ability: Moderate Impairment Voice Voice Phonatory-Based Quality: Hoarse, Weak Voice Pitch: Moderately Low Voice Loudness: Moderately Soft/Quiet Face Facial Symmetry: Symmetrical Oral-Facial Assessment Oral-Facial Dentition: Normal Labial Seal Description: Weak Smile: Reduced ROM Puff Cheeks: Reduced Strength Patient was extubated this date. Prior to BDE his mouth and lips were very dry. Lingual Protrusion: Normal Lingual ROM: Normal Lingual Strength: Normal Pharynx Velopharyngeal Move.: Normal Volitional Dry Swallow: Yes Voluntary Cough: Yes Can Clear Throat Volitionally: Yes Dysphagia Evaluation Consistencies Presented: Regular, Thin Liquid, Mechanical Soft, Pureed Oral phase is within normal range of function Pharyngeal phase is within normal range of function Dietary Recommendations: Regular Liquid Recommendations: Thin Swallowing Precautions: Alternate Liquids/Solids, Double Swallow, Decreased Bolus 1/2 Tsp, Liquids from Straw, Small Bites and Sips, Sitting Upright 90 Degrees, Sitting 90 Degrees 30 Post Intake Dysphagia Evaluation Summary The patient was admitted through the ED on 02/04/19 s/p syncopy episode. The patient presented to the ER in [place] and was intubated prior to transport. The patient was extubated today. Orders received for BDE which was completed with the following consistencies: thin via 1/2 tsp x2, small sips via straw x2 without difficulty. Puree, mechanical soft and regular trials all within normal range of function at the oral and pharyngeal phases. Oral clearing noted to be adequate. The patient will be on a regular diet consistency with thin liquids. This information was provided to his nurse, Misha and written on the white board in his room. His mother was also present for the evaluation. Diet level and assessment details were given to patient and mother. Speech Short Term Goals Short Term Goals Short Term Goals 1) The patient will tolerate least restrictive diet level without s/s of aspiration at 90% or greater. 2) The patient will utilize compensatory strategies as trained at 90% or greater with minimal verbal cues. Speech Critical Care Physician Assistant Goals Mcfp Goals The patient will maintain adequate nutrition/hydration via safe effective swallow function. Speech-Plan Patient/Family Goals Patient/Family Goals: The patient plans on returning home upon hospital discharge. Treatment Plan Speech Therapy Treatment Plan: Continue Plan of Care The patient will receive skilled services for dysphagia safety training. Treatment Duration: Feb 11, 2019 Frequency: 2 times per week Estimated Hrs Per Day: .25 hour per day Rehab Potential: Good Barriers to Learning: Patient's recent medical status Pt/Family Agrees to Plan: Yes Safety Risks/Education Teaching Recipient: Patient, Family Teaching Methods: Discussion Response to Teaching: Verbalize Understanding Education Topics Provided: Diet level recommendations and safety of oral intake. Time Speech Therapy Time In: 15:30 Speech Therapy Time Out: 15:45 Total Billed Time: 15 Billed Treatment Time 1 VIN Jennings Feb 09, 2019 15:47
--- NOTE | 2019-02-09 15:52 | Physical Therapy Evaluation ---
PT Evaluation-General Medical Diagnosis Admission Date Feb 03, 2019 at 14:25 Medical Diagnosis: Alcohol withdrawal with questionable seizure activity Onset Date: Feb 03, 2019 Therapy Diagnosis Therapy Diagnosis: impaired mobility, strength, endurance, balance Height/Weight Height (Feet): 6 Height (Inches): 1.00 Weight (Pounds): 291 Weight (Ounces): 2.0 Precautions Precautions/Isolations: Fall Prevention, Standard Precautions Weight Bear Status Right Lower Extremity: Right Weight Bearing/Tolerated Left Lower Extremity: Left Weight Bearing/Tolerated Referral Physician: Sean Hernandez DO Reason for Referral: Evaluation/Treatment Medical History Pertinent Medical History: Alcoholism Reviewed History: Yes Social History Home: Single Level Current Living Status: Significant Other Prior/Core FIM Prior Level of Function Therapy Code Descriptions/Definitions Functional [place] Measure: 0=Not Assessed/NA 4=Minimal Assistance 1=Total Assistance 5=Supervision or Setup 2=Maximal Assistance 6=Modified [place] 3=Moderate Assistance 7=Complete [place] Therapy Quality Codes: 6 Independent with activity with or without an assistive device 5 Patient requires set up or clean up by helper. Patient completes activity by themselves 4 Supervision or touching assist (CGA). [place] provide cues , steadying assist 3 The helper provides less than half the effort to complete the activity 2 The helper provides more than half the effort to complete the activity 1 Dependent. The helper does all the effort to complete an activity 7 Patient refused to complete or attempt activity 9 The patient did not perform the activity before the current illness or injury 88 Not attempted due to Medical conditions or safety concerns Functional Abilities and Goals: Independent: Patient completed the activities by him/herself, with or without an assistive device, with no assistance from a helper. Needed Some Help: Patient needed partial assistance from another person to complete activities. Dependent: A helper completed the activities for the patient. Unknown: Not Applicable: Bed Mobility: 7 Transfers (B,C,W/C) (FIM): 7 Gait: 7 Indoor Mobility (Ambulation): Independent Stairs: Independent PT Evaluation-Current Subjective Patient in bed pre tx, agrees to PT, has no complaints of pain at rest. Will be co-treating with OT due to poor patient mobility, strength, endurance, confusion, the need to coordinate UE and LE during activity. Pt/Family Goals none stated Objective Patient Orientation: Person, Confused Attachments: Oxygen, Petersen Catheter, IV ROM/Strength ROM Lower Extremities WNL Strength Lower Extremities 2/5 gross bilateral lower extremities Sensory Hearing: Functional Sensation Right Lower Extremit: Intact Sensation Left Lower Extremity: Intact Transfers Therapy Code Descriptions/Definitions Functional [place] Measure: 0=Not Assessed/NA 4=Minimal Assistance 1=Total Assistance 5=Supervision or Setup 2=Maximal Assistance 6=Modified [place] 3=Moderate Assistance 7=Complete [place] Transfers (B, C, W/C) (FIM): 1 Scootin Rollin Supine to/from Sit: 1 Balance Sitting Static: Poor Sitting Dynamic: Poor Treatment Patient sat at the edge of the bed for about 3 min with dependence. Assessment/Needs Patient has impaired mobility, strength, endurance, balance. He is profoundly weak and dependent for bed mobility and supine <-> sit at this time. Rehab Potential: Guarded PT Short Term Goals Short Term Goals Time Frame: Feb 16, 2019 Transfers (B,C,W/C) (FIM): 3 Gait (FIM): 1 Gait Distance Comment: 5' Gait Level of Assist: 4 Gait Assistive Device: FWW PT Plan Problem List Problem List: Activity Tolerance, Functional Strength, Safety, Balance, Gait, Transfer, Bed Mobility, ROM Treatment/Plan Treatment Plan: Continue Plan of Care Treatment Plan: Bed Mobility, Concurrent Therapy, Education, Functional Activity Marek, Functional Strength, Gait, Safety, Therapeutic Exercise, Transfers Treatment Duration: Feb 16, 2019 Frequency: 6 times per week Estimated Hrs Per Day: .25 hour per day Patient and/or Family Agrees t: Yes Safety Risks/Education Patient Education: Correct Positioning, Safety Issues Teaching Recipient: Patient Teaching Methods: Demonstration, Discussion Response to Teaching: Reinforcement Needed Discharge Recommendations Plan Patient will perform bed mobility and transfer training, balance and endurance training, functional strengthening, stair training, gait training, and e ducation, to improve functional mobility and independence at home. Therapy Discharge Recommendati: 24 Hour Supervision Time/GCodes Time In: 1514 Time Out: 1530 Total Billed Treatment Time: 16 Total Billed Treatment 1 visit EVM 16' Co-treated with OT for 16'. PT worked on bed mobility, supine to sit, sitting balance, OT worked on UE positioning and safety, assist with sitting and supine <-> sit. VANIA GREEN PT Feb 09, 2019 15:52
[2019-02-09] MEDS: hydrALAZINE (APESOLINE) 20 MG/ML VIAL IV PRN (19:37)
[2019-02-09] MEDS ORDERED: LORazepam 1 MG (ATIVAN) TAB PO PRN (20:00)
[2019-02-09] MEDS: LORazepam INJ 2 MG/ML (ATIVAN) VIAL IV PRN ×2 (20:14→22:01)
[2019-02-09] MEDS ORDERED: HYDROCHLOROTHIAZIDE 25 MG (HCTZ) TAB PO SCH (21:00)
[2019-02-09] MEDS ORDERED: CARVEDILOL 3.125 MG (COREG) TABLET PO SCH ×2 (21:00→21:43)
[2019-02-09] MEDS ORDERED: CARVEDILOL 3.125 MG (COREG) TABLET ONE (21:46)
[2019-02-09] MEDS: HYDROCHLOROTHIAZIDE 25 MG (HCTZ) TAB PO SCH (22:04)
[2019-02-09] MEDS: amLODIPine 10 MG (NORVASC) TAB PO SCH (22:06)
[2019-02-10] VITALS (25 sets, daily range): BP systolic 126–189; BP diastolic 73–100
[2019-02-10] MEDS: hydrALAZINE (APESOLINE) 20 MG/ML VIAL IV PRN (00:57)
[2019-02-10] MEDS: LORazepam INJ 2 MG/ML (ATIVAN) VIAL IV PRN (00:57)
[2019-02-10 03:36] LABS: BASOPHILS % (AUTO) 1 % (0-10); EOSINOPHILS # (AUTO) 0.1 10^3/uL (0.0-0.3); EOSINOPHILS % (AUTO) 1 % (0-10); HEMATOCRIT 40 % (40-54); HEMOGLOBIN 13.5 G/DL (13.3-17.7); LYMPHOCYTES # (AUTO) 0.9 X 10^3 (1.0-4.0); LYMPHOCYTES % (AUTO) 11 % (12-44); MEAN CORPUSCULAR HEMOGLOBIN 30 PG (25-34); MEAN CORPUSCULAR HGB CONC 33 G/DL (32-36); MEAN CORPUSCULAR VOLUME 89 FL (80-99); MEAN PLATELET VOLUME 10.9 FL (7.4-10.4); MONOCYTES % (AUTO) 12 % (0-12); NEUTROPHILS # (AUTO) 6.3 X 10^3 (1.8-7.8); NEUTROPHILS % (AUTO) 76 % (42-75); PLATELET COUNT 170 10^3/uL (130-400); RED CELL DISTRIBUTION WIDTH 15.3 % (10.0-14.5); WHITE BLOOD COUNT 8.3 10^3/uL (4.3-11.0)
[2019-02-10] MEDS: RT-ALBUTEROL/IPRATROPIUM 3 ML (DUONEB) VIAL INH SCH ×6 (03:36→23:08)
--- NOTE | 2019-02-10 03:44 | Pulmonary Progress Note ---
BETTY MC,MED STUDENT 02/10/19 0344: Subjective Date Seen by a Provider: Feb 10, 2019 Time Seen by a Provider: 03:37 Subjective/Events-last exam Patient is awake and oriented to person but not time or place. Patient is cooperative and reports having visual hallucinations of clowns, little people and critters but denied having any while provider was in the room. patient thought he knew my father and thought he was a radio mechanic apprentice (this is not true). Patient denies fever, chills, diaphoresis, dizziness, nausea, vomiting SOB, chest pain, tingling. admits to headache Sepsis Event Evaluation Height, Weight, BMI Height: 6'1.00" Weight: 291lbs. 2.0oz. 132.070249jj; 35.6 BMI Method:Stated Focused Exam Lactate Level 02/07/19 05:24: Lactic Acid Level 1.03 02/08/19 05:50: Lactic Acid Level 0.89 Exam Exam Vital Signs Date Time Temp Pulse Resp B/P (MAP) Pulse Ox O2 Delivery O2 Flow Rate FiO2 02/10/19 02:00 112 18 166/89 (114) 98 Vapotherm 40.00 15.00 02/10/19 01:00 112 27 171/87 (115) 96 Vapotherm 40.00 15.00 02/10/19 01:00 106 02/10/19 00:20 99.8 02/10/19 00:09 Vapotherm 15.00 50 02/10/19 00:00 106 28 189/100 (129) 97 Vapotherm 40.00 15.00 02/09/19 23:00 112 25 163/88 (113) 96 Vapotherm 40.00 15.00 02/09/19 22:53 97 Vapotherm 15.00 40 02/09/19 22:00 117 16 180/90 (120) 97 Vapotherm 40.00 15.00 02/09/19 21:00 117 20 180/92 (121) 96 Vapotherm 40.00 15.00 02/09/19 20:07 Vapotherm 15.00 50 02/09/19 20:05 99.2 02/09/19 20:00 122 27 185/97 (126) 96 Vapotherm 40.00 15.00 02/09/19 19:39 96 Vapotherm 15.00 40 02/09/19 19:00 115 02/09/19 19:00 115 29 181/95 (123) 94 Vapotherm 40.00 15.00 02/09/19 18:00 112 33 168/89 (115) 95 Vapotherm 40.00 15.00 02/09/19 17:00 112 24 156/89 (111) 96 Vapotherm 40.00 15.00 02/09/19 16:00 104 33 152/90 (110) 96 Vapotherm 40.00 15.00 02/09/19 16:00 Vapotherm 15.00 50 02/09/19 15:00 20 95 Vapotherm 50.00 15.00 02/09/19 14:37 97 Vapotherm 15.00 50 02/09/19 14:00 90 10 140/77 (98) 98 Vapotherm 50.00 15.00 02/09/19 13:16 92 02/09/19 13:00 93 25 141/72 (95) 96 Vapotherm 50.00 15.00 02/09/19 12:48 100.7 02/09/19 12:00 96 24 149/75 (99) 95 Vapotherm 50.00 15.00 02/09/19 12:00 100.7 02/09/19 12:00 Vapotherm 15.00 50 02/09/19 11:33 Vapotherm 50.00 15.00 02/09/19 11:33 97 Vapotherm 20.00 50 02/09/19 11:00 95 29 98 Mechanical Ventilator 45.00 02/09/19 10:34 102.3 02/09/19 10:00 97 38 146/83 (104) 95 Mechanical Ventilator 45.00 02/09/19 09:49 105 37 96 45 02/09/19 09:00 97 42 159/79 (105) 97 Mechanical Ventilator 45.00 02/09/19 08:00 93 32 141/80 (100) 96 Mechanical Ventilator 45.00 02/09/19 07:27 Mechanical Ventilator 45 02/09/19 07:00 100.7 02/09/19 07:00 89 36 135/82 (99) 95 Mechanical Ventilator 45.00 02/09/19 07:00 90 02/09/19 06:48 84 33 96 45 02/09/19 06:00 82 29 139/89 (106) 94 Mechanical Ventilator 45.00 02/09/19 05:00 79 20 142/79 (100) 94 Mechanical Ventilator 45.00 02/09/19 04:10 97.7 02/09/19 04:10 Mechanical Ventilator 50 02/09/19 04:00 79 22 137/77 (97) 96 Mechanical Ventilator 45.00 I & O 02/10/19 07:00 Intake Total 1120 ml Output Total 6350 ml Balance -5230 ml Height & Weight Height: 6'1.00" Weight: 291lbs. 2.0oz. 132.887423lo; 35.6 BMI Method:Stated General Appearance: No Apparent Distress, WD/WN, Obese, Other (intubated and sedated) Respiratory: Chest Non Tender, Lungs Clear, No Accessory Muscle Use, No Respiratory Distress Cardiovascular: No Edema, No Murmur, Normal Peripheral Pulses, Tachycardia Capillary Refill: Less Than 3 Seconds Peripheral Pulses: 2+ Dorsalis Pedis (R), 2+ Left Dors-Pedis (L), 2+ Radial Pulses (R), 2+ Radial Pulses (L) Gastrointestinal: normal bowel sounds, soft Extremity: Normal Capillary Refill, Normal Inspection, Normal Range of Motion, Non Tender, No Pedal Edema Neurologic/Psychiatric: Alert, Other (appears anxious and jittery) Skin: Normal Color, Diaphoresis Lymphatic: No Adenopathy Results Lab Laboratory Tests 02/09/19 03:21 02/10/19 03:12 Assessment/Plan Assessment/Plan HTN - carvedilol, HCTZ, amlodipine - patient is still having HTN - start Precedex visual hallucinations- possible d/t EtOH detoxication - [facility] protocol IDDM - basal insulin glargine per home - prepandial insulin Aspart per home FENGIPPX - NS 75ml/hr - replace K and Mg - clear liquid diet - SCDs and enoxaparin RAFAEL HERNANDEZ DO 02/10/19 0444: Subjective Date Seen by a Provider: Feb 10, 2019 Time Seen by a Provider: 04:38 Subjective/Events-last exam Pt has been hallucinating through the night and appears to be withdrawing. Exam Exam General Appearance: WD/WN, Anxious, Obese Respiratory: Chest Non Tender, Lungs Clear, No Accessory Muscle Use, No Respiratory Distress Cardiovascular: No Edema, No Murmur, Normal Peripheral Pulses Gastrointestinal: normal bowel sounds, soft Extremity: Normal Capillary Refill, Normal Inspection, Normal Range of Motion, Non Tender Neurologic/Psychiatric: Alert Skin: Normal Color Lymphatic: No Adenopathy Assessment/Plan Assessment/Plan Acute respiratory failure -Pt is doing well of ventilator. He is currently requiring Vapotherm Pneumonia - probably aspiration present at admission - Zosyn Vanco -Hannon cultures pending Alcohol withdrawal -Start precedex gtt -Banana bag -Continue to monitor HTN -Secondary to withdrawal. -Start precedex and monitor Metabolic lactic acidosis -Give 2 amps of bicarb -IVF -Repeat LA Elevated LFTs and ammonia level -monitor Hypokalemia, hypomag -replace Supervisory-Addendum Brief Verification & Attestation Participated in pt care: history, physical Personally performed: exam, history Care discussed with: Medical Student Procedures: n/a Verification and Attestation of Medical Student E/M Service A medical student performed and documented this service in my presence. I re viewed and verified all information documented by the medical student and made modifications to such information, when appropriate. I personally performed the physical exam and medical decision making. Rafael Hernandez, Feb 10, 2019,06:37 BETTY MC,MED STUDENT Feb 10, 2019 03:44 RAFAEL HERNANDEZ DO Feb 10, 2019 04:44
[2019-02-10 04:02] LABS: BUN/CREATININE RATIO 17; CALCIUM 8.1 MG/DL (8.5-10.1); CARBON DIOXIDE 14 MMOL/L (21-32); CHLORIDE 109 MMOL/L (98-107); CREATININE SERUM 0.58 MG/DL (0.60-1.30); GFR ESTIMATED > 60; GLUCOSE 164 MG/DL (70-105); MAGNESIUM 1.8 MG/DL (1.6-2.4); PHOSPHORUS 1.7 MG/DL (2.3-4.7); POTASSIUM 2.9 MMOL/L (3.6-5.0); SODIUM 140 MMOL/L (135-145)
[2019-02-10 04:13] LABS: ABG BASE EXCESS -9.5 MMOL/L (-2.5-2.5); ABG OXYGEN SATURATION 97 % (94-100); ABG PCO2 23 MMHG (35-45); ABG PH 7.41 (7.37-7.43); ABG PO2 82 MMHG (79-93)
[2019-02-10 04:14] LABS: ALLENS TEST YES-POS; INSPIRED O2 40%; PATIENT TEMP 98.7; VENTILATOR NO
[2019-02-10] MEDS ORDERED: SODIUM BICARB 8.4% 50 MEQ/50 ML VIAL IV ONE (04:45)
[2019-02-10] MEDS ORDERED: DEXMEDETOMIDINE INJECTION 200 MCG in NS (IVPB) 50 ML IV SCH (04:45)
[2019-02-10] MEDS ORDERED: POTASSIUM PHOSPHATE INJ 30 MM in NS (IVPB) 250 ML IV ONE (04:45)
[2019-02-10] MEDS ORDERED: meTOprolol 5 MG/5 ML (LOPRESSOR) VIAL IV ONE (05:00)
[2019-02-10] MEDS ORDERED: SODIUM BICARB 8.4% 50 MEQ/50 ML VIAL ONE (05:08)
[2019-02-10] MEDS: MAGNESIUM 1 GM/100 ML IVPB 100 ML IV SCH (05:20)
[2019-02-10] MEDS: CATHETER FLUSH 10 ML SYR IV SCH ×3 (05:20→22:00)
[2019-02-10] MEDS: KCL 20 MEQ TAB (K-DUR) PO SCH (05:21)
[2019-02-10] MEDS: inSUlin ASPART (NovoLOG) 1 UNIT/0.01 ML (CHARGE PER UNIT) SQ SCH ×4 (05:21→20:09)
[2019-02-10] MEDS: POTASSIUM CL 10MEQ/50ML IVPB 50 ML IV SCH (05:21)
[2019-02-10] MEDS ORDERED: NS (IVPB) 50 ML ONE (06:07)
[2019-02-10] MEDS: DEXMEDETOMIDINE INJECTION 1,000 MCG in NS (IVPB) 240 ML IV SCH ×2 (06:23→09:00)
[2019-02-10] MEDS: amLODIPine 10 MG (NORVASC) TAB PO SCH (08:39)
[2019-02-10] MEDS: lisINopril 40 MG (PRINIVIL) TABLET PO SCH (08:39)
[2019-02-10] MEDS: CARVEDILOL 3.125 MG (COREG) TABLET PO SCH ×2 (08:39→20:09)
[2019-02-10] MEDS: cefTRIAXone FOR IV USE 1,000 MG in WATER (STERILE) FOR INJECTION 10 ML IV SCH (08:41)
[2019-02-10] MEDS: PANTOPRAZOLE 40 MG (PROTONIX) VIAL IV SCH ×2 (08:41→20:08)
--- NOTE | 2019-02-10 08:43 | Diagnostic Imaging Report ---
INDICATION: Respiratory failure Portable chest 3:20 AM Heart size and pulmonary vascularity are normal. Lungs are clear. There are no effusions or pneumothoraces. IMPRESSION: Negative chest. Dictated by: Dictated on workstation # [id number]
[2019-02-10] MEDS: HYDROCHLOROTHIAZIDE 25 MG (HCTZ) TAB PO SCH (08:48)
[2019-02-10] MEDS ORDERED: HYDROCHLOROTHIAZIDE 25 MG (HCTZ) TAB PO SCH (09:00)
[2019-02-10] MEDS: THIAMINE INJECTION 100 MG, FOLIC ACID INJECTION 1 MG, VITAMIN MULTI INJECTION 10 ML, MA... IV SCH ×5 (09:15)
--- NOTE | 2019-02-10 09:42 | Physical Therapy Daily Note ---
PT Daily Note-Current Subjective Patient is in bed and very confused. Family present. Mental Status Patient Orientation: Confused Attachments: Oxygen, Petersen Catheter, IV Transfers Therapy Code Descriptions/Definitions Functional [place] Measure: 0=Not Assessed/NA 4=Minimal Assistance 1=Total Assistance 5=Supervision or Setup 2=Maximal Assistance 6=Modified [place] 3=Moderate Assistance 7=Complete [place] Therapy Quality Codes: 6 Independent with activity with or without an assistive device 5 Patient requires set up or clean up by helper. Patient completes activity by themselves 4 Supervision or touching assist (CGA). [place] provide cues , steadying assist 3 The helper provides less than half the effort to complete the activity 2 The helper provides more than half the effort to complete the activity 1 Dependent. The helper does all the effort to complete an activity 7 Patient refused to complete or attempt activity 9 The patient did not perform the activity before the current illness or injury 88 Not attempted due to Medical conditions or safety concerns Transfers (B, C, W/C) (FIM): 1 Scootin Rollin dependent assist with repositioning in bed and to lean forward for xray plate placement. Patient unable to assist at this time. Weight Bearing Right Lower Extremity: Right Weight Bearing/Tolerated Left Lower Extremity: Left Weight Bearing/Tolerated Exercises Supine Ex: Ankle pumps, Heel Slides, Straight leg raise, Hip abd/add Supine Reps: 15 (AAROM bilateral LE) Assessment Patient tolerated minimal activity and is in bed in the chair position. PT to increase activity as tolerated by patient. PT Short Term Goals Short Term Goals Time Frame: Feb 16, 2019 Transfers (B,C,W/C) (FIM): 3 Gait (FIM): 1 Gait Distance Comment: 5' Gait Level of Assist: 4 Gait Assistive Device: FWW PT Plan Treatment/Plan Treatment Plan: Continue Plan of Care Treatment Plan: Bed Mobility, Concurrent Therapy, Education, Functional Activity Marek, Functional Strength, Gait, Safety, Therapeutic Exercise, Transfers Treatment Duration: Feb 16, 2019 Frequency: 6 times per week Estimated Hrs Per Day: .25 hour per day Patient and/or Family Agrees t: Yes Time/GCodes Time In: 810 Time Out: 833 Total Billed Treatment Time: 23 Total Billed Treatment 1 visit EX 14 min FA 9 min GREGG DANIELLE PT Feb 10, 2019 09:42
--- NOTE | 2019-02-10 09:45 | Diagnostic Imaging Report ---
Indication: PICC line Study compared with exam earlier this same date. Left PICC catheter courses along the expected orientation of the left innominate vein owing to body habitus. Its distal tip is not readily defined. Its obliquely left to right inferiorly from the level of the medial left clavicle projecting over the aortic knob and distally terminating at the level just below the undersurface of the right mainstem bronchus. No focal consolidation with minimal zones of basilar atelectasis. IMPRESSION: The course of the left PICC catheter is difficult to visualize its tip is believed to be projecting along the undersurface of the right mainstem at expected lower SVC level although it does course atypically from the left projecting over the aortic knob correlate with the site of functioning. Dictated by: Dictated on workstation # [id number]
--- NOTE | 2019-02-10 11:09 | Progress Note ---
Subjective Subjective/Events-last exam Afebrile, extubated yesterday am. On vapotherm this am. Feeling drowsy and loopy, denies other concerns, denies abdominal pain. Is eating breakfast. Focused Exam Lactate Level 02/08/19 05:50: Lactic Acid Level 0.89 02/10/19 07:05: Lactic Acid Level 0.89 Objective Exam Last Set of Vital Signs Vital Signs Date Time Temp Pulse Resp B/P (MAP) Pulse Ox O2 Delivery O2 Flow Rate FiO2 02/10/19 10:15 98 Nasal Cannula 5.00 02/10/19 10:00 94 21 126/79 (95) 02/10/19 08:35 30 02/10/19 07:00 98.1 Capillary Refill : Less Than 3 Seconds I&O Intake and Output 02/10/19 00:00 Intake Total 1580 ml Output Total 6600 ml Balance -5020 ml Intake Oral 660 ml IV Total 860 ml Other 60 ml Output Urine Total 6600 ml # Bowel Movements 12 General: Alert, No Acute Distress Lungs: Clear to Auscultation, Normal Air Movement Heart: Regular Rate, No Murmurs Abdomen: Normal Bowel Sounds, Other (distended, nontender) Neuro: Normal Speech Psych/Mental Status: Other (oriented to self and location) Results/Procedures Lab Laboratory Tests 02/09/19 13:17: Glucometer 182H 02/09/19 17:26: Glucometer 195H 02/09/19 21:59: Glucometer 157H 02/10/19 03:12: White Blood Count 8.3, Red Blood Count 4.55, Hemoglobin 13.5, Hematocrit 40, Mean Corpuscular Volume 89, Mean Corpuscular Hemoglobin 30, Mean Corpuscular Hemoglobin Concent 33, Red Cell Distribution Width 15.3H, Platelet Count 170, Mean Platelet Volume 10.9H, Neutrophils (%) (Auto) 76H, Lymphocytes (%) (Auto) 11L, Monocytes (%) (Auto) 12, Eosinophils (%) (Auto) 1, Basophils (%) (Auto) 1, Neutrophils # (Auto) 6.3, Lymphocytes # (Auto) 0.9L, Monocytes # (Auto) 1.0, Eosinophils # (Auto) 0.1, Basophils # (Auto) 0.0, Sodium Level 140, Potassium Level 2.9L, Chloride Level 109H, Carbon Dioxide Level 14L, Anion Gap 17H, Blood Urea Nitrogen 10, Creatinine 0.58L, Estimat Glomerular Filtration Rate > 60, BUN/Creatinine Ratio 17, Glucose Level 164H, Calcium Level 8.1L, Phosphorus Level 1.7L, Magnesium Level 1.8, B-Type Natriuretic Peptide 108.5H 02/10/19 03:55: Blood Gas Puncture Site L RAD, Blood Gas Patient Temperature 98.7, Arterial Blood pH 7.41, Arterial Blood Partial Pressure CO2 23L, Arterial Blood Partial Pressure O2 82, Arterial Blood HCO3 14*L, Arterial Blood Total CO2 15.0L, Arterial Blood Oxygen Saturation 97, Arterial Blood Base Excess -9.5L, Eliecer Test YES-POS, Blood Gas Ventilator Setting NO, Blood Gas Inspired Oxygen 40% 02/10/19 05:07: Glucometer 148H 02/10/19 07:05: Lactic Acid Level 0.89 Microbiology 02/03/19 Blood Culture - Final, Complete No growth 02/06/19 Mycobacterial Culture - Preliminary, Resulted 02/04/19 Urine Culture - Final, Complete NO GROWTH Assessment/Plan Assessment/Plan (1) Hypercapnic respiratory failure Status: Acute Assessment & Plan: Management per Dr. Hernandez. Improving pH and PCO2, remains intubated. On nebulizer treatments as well as acetylcysteine. 02/09 plan for extubation later this am if possible. 02/10 currently on vapotherm with 35% FiO2, weaning as tolerated. Qualifiers: Qualified Codes: J96.02 - Acute respiratory failure with hypercapnia (2) Pneumonia Status: Acute Assessment & Plan: Zosyn and vancomycin, bronch with staph 02/09 continue Zosyn 02/10 abx narrowed to ceftriaxone Qualifiers: (3) Fatty liver Status: Acute Assessment & Plan: Noted on abdominal CT. Suspect alcoholic hepatitis. (4) Thrombocytopenia Status: Resolved Assessment & Plan: Improving, concerning given his fatty liver and alcoholism. Monitor closely. (5) Hyperammonemia Status: Resolved Assessment & Plan: Started on lactulose, improved. (6) Elevated LFTs Status: Resolved Assessment & Plan: Suspect alcoholic hepatitis/fatty liver. Hep panel and HIV neg. (7) Hematuria Status: Acute Assessment & Plan: Urine culture negative, no obstructing stone or noted renal abnormality (2 mm nonobstructing left stone) on CT, may need cystoscopy in future if persists. (8) Ileus Status: Acute Assessment & Plan: CT concerning for ileus vs SBO. NG in place, having adequate stool output per nursing. On IV reglan. 02/10 tolerating diet this am, monitor (9) DVT prophylaxis Status: Acute Assessment & Plan: Low risk on admission scoring. Clinical Quality Measures DVT/VTE Risk/Contraindication: Risk Factor Score Per Nursin RFS Level Per Nursing on Admit: 2=Moderate HAILEY STEWART MD Feb 10, 2019 11:09
--- NOTE | 2019-02-10 14:35 | NUR ---
patient is currently on 3 l nc and doing good at this time
--- NOTE | 2019-02-10 16:11 | Occupational Ther Daily Note ---
OT Current Status-Daily Note Subjective Pt. somewhat confused during treatment. Appearance Pt. in bed. Mother in room. Mental Status/Objective Patient Orientation: Confused Therapy Code Descriptions/Definitions Functional [place] Measure: 0=Not Assessed/NA 4=Minimal Assistance 1=Total Assistance 5=Supervision or Setup 2=Maximal Assistance 6=Modified [place] 3=Moderate Assistance 7=Complete [place] Attachments: IV, Oxygen ADL-Treatment Grooming (FIM): 2 Pt. in bed. Mumbles but is alert and talkative with therapist. OT provides pt. warm washcloth. Encouraged to wash face. Pt. unable to bring washcloth to face. OT assists with bringing hand/arm up, but pt unable to complete the task. OT washes face for him. Pt. is able to squeeze with each hand, but unable to fully flex bilateral elbows or shoulders. OT provides gentle PROM to bilateral elbows and shoulders. Pt's shake had just come and pt. verbalizes wanting it. OT places shake in right hand and provides AAROM to bring shake to mouth. Pt. places straw in mouth, but does not know how to initiate sucking through straw. OT encourages him to do so, and pt. is able to drink a lot of the shake without difficulty. OT asks pt. multiple times if he would like to reposition in bed. Pt. declines this. Mother reports that pt. was repositioned approximately an hour before. All needs met at bed level and pt. then reports he is comfortable. Education OT Patient Education: Correct positioning, Exercise program, Modified ADL techniques, Progress toward Goal/Update tx plan, Purpose of tx/functional activities, Reviewed precautions, Rehab process, Transfer techniques Teaching Recipient: Patient Teaching Methods: Demonstration, Discussion Response to Teaching: Verbalize Understanding, Return Demonstration OT Short Term Goals Short Term Goals Eating(FIM): 2 Grooming(FIM): 2 Transfers (B,C,W/C) (FIM): 3 1=Demonstrate adherence to instructed precautions during ADL tasks. 2=Patient will verbalize/demonstrate understanding of assistive devices/modifications for ADL. 3=Patient will improve strength/tolerance for activity to enable patient to perform ADL's. OT Usp Goals Wire Coating Operator Metal Goals Time Frame: Mar 02, 2019 Eating (FIM): 5 Grooming(FIM): 5 Bathing(FIM): 5 Upper Body Dressing(FIM): 5 Lower Body Dressing(FIM): 5 Toileting(FIM): 5 Transfers (B,C,W/C) (FIM): 5 Toilet/Commode Transfer(FIM): 5 Additional Goals: 1-Demonstrate ADL Tasks, 2-Verbalize Understanding, 3- ImproveStrength/Marek 1=Demonstrate adherence to instructed precautions during ADL tasks. 2=Patient will verbalize/demonstrate understanding of assistive devices/modifications for ADL. 3=Patient will improve strength/tolerance for activity to enable patient to perform ADL's. OT Education/Plan Problem List/Assessment Assessment: Decreased Activ Tolerance, Decreased UE Strength, Impaired Bed Mobility, Impaired Cognition, Impaired Coordination, Impaired I ADL's, Impaired Self-Care Skills, Restricted Funct UE ROM Discharge Recommendations Plan/Recommendations: Continue POC Therapy Discharge Recommendati: 24 Hour Supervision Treatment Plan/Plan of Care Treatment,Training & Education: Yes Patient would benefit from OT for education, treatment and training to promote independence in ADL's, mobility, safety and/or upper extremity function for ADL's. Plan of Care: ADL Retraining, Caregiver Training, Functional Mobility, Group Exercise/Act as Ind, UE Funct Exercise/Act Treatment Duration: Mar 02, 2019 Frequency: 5 times per week Estimated Hrs Per Day: .25 hour per day Agreement: Yes Rehab Potential: Fair Time/GCodes Start Time: 13:14 Stop Time: 13:37 Total Time Billed (hr/min): 23 Billed Treatment Time 1, ADL x 2 ETHAN DAVIDSON OT Feb 10, 2019 16:11
[2019-02-11] VITALS (23 sets, daily range): BP systolic 95–173; BP diastolic 71–103
[2019-02-11] MEDS: RT-ALBUTEROL/IPRATROPIUM 3 ML (DUONEB) VIAL INH SCH ×6 (03:07→23:06)
[2019-02-11 03:28] LABS: BASOPHILS % (AUTO) 0 % (0-10); EOSINOPHILS # (AUTO) 0.2 10^3/uL (0.0-0.3); EOSINOPHILS % (AUTO) 3 % (0-10); HEMATOCRIT 36 % (40-54); HEMOGLOBIN 12.3 G/DL (13.3-17.7); LYMPHOCYTES % (AUTO) 14 % (12-44); MEAN CORPUSCULAR HEMOGLOBIN 30 PG (25-34); MEAN CORPUSCULAR HGB CONC 34 G/DL (32-36); MEAN CORPUSCULAR VOLUME 87 FL (80-99); MEAN PLATELET VOLUME 10.3 FL (7.4-10.4); MONOCYTES # (AUTO) 0.6 X 10^3 (0.0-1.0); MONOCYTES % (AUTO) 8 % (0-12); NEUTROPHILS # (AUTO) 5.5 X 10^3 (1.8-7.8); NEUTROPHILS % (AUTO) 75 % (42-75); PLATELET COUNT 160 10^3/uL (130-400); WHITE BLOOD COUNT 7.3 10^3/uL (4.3-11.0)
[2019-02-11 03:49] LABS: BUN/CREATININE RATIO 20; CALCIUM 7.8 MG/DL (8.5-10.1); CARBON DIOXIDE 20 MMOL/L (21-32); CHLORIDE 104 MMOL/L (98-107); CREATININE SERUM 0.54 MG/DL (0.60-1.30); GFR ESTIMATED > 60; GLUCOSE 170 MG/DL (70-105); MAGNESIUM 1.6 MG/DL (1.6-2.4); POTASSIUM 2.8 MMOL/L (3.6-5.0); SODIUM 136 MMOL/L (135-145)
--- NOTE | 2019-02-11 03:59 | Pulmonary Progress Note ---
BETTY MC,MED STUDENT 02/11/19 0358: Subjective Date Seen by a Provider: Feb 11, 2019 Time Seen by a Provider: 03:59 Subjective/Events-last exam Patient has improved slightly from yesterday. he is still having visual and auditory confabulation with mild visual and auditory hallucinations; he believes that there was an accident outside and that he is going to make all the nurses breakfast. He is not orientation to place and time, but is oriented to person. Patient denies fever, chills, nausea, vomiting, stomach pain, diaphoresis, SOB, and chest pain Sepsis Event Evaluation Height, Weight, BMI Height: 6'1.00" Weight: 274lbs. 1.0oz. 124.527009bv; 35.6 BMI Method:Stated Focused Exam Lactate Level 02/08/19 05:50: Lactic Acid Level 0.89 02/10/19 07:05: Lactic Acid Level 0.89 Exam Exam Vital Signs Date Time Temp Pulse Resp B/P (MAP) Pulse Ox O2 Delivery O2 Flow Rate FiO2 02/11/19 03:08 98 Nasal Cannula 2.00 02/11/19 03:00 79 16 126/71 (89) 97 Nasal Cannula 2.00 02/11/19 02:00 80 13 148/78 (101) 98 Nasal Cannula 2.00 02/11/19 01:00 81 02/11/19 01:00 81 22 141/83 (102) 96 Nasal Cannula 2.00 02/11/19 00:00 84 22 141/76 (97) 94 Nasal Cannula 2.00 02/11/19 00:00 Nasal Cannula 3.00 02/10/19 23:33 Nasal Cannula 2.00 02/10/19 23:08 98 Nasal Cannula 3.00 02/10/19 23:00 84 22 151/78 (102) 96 Nasal Cannula 3.00 02/10/19 22:00 86 23 148/79 (102) 97 Nasal Cannula 3.00 02/10/19 21:00 87 18 154/82 (106) 96 Nasal Cannula 3.00 02/10/19 20:00 84 22 150/86 (107) 98 Nasal Cannula 3.00 02/10/19 20:00 Nasal Cannula 3.00 02/10/19 19:46 97.8 88 18 152/81 (104) 98 02/10/19 19:00 91 26 135/73 (93) 98 Nasal Cannula 3.00 02/10/19 19:00 87 02/10/19 18:55 96 Nasal Cannula 3.00 02/10/19 18:06 101 17 143/78 (99) 98 Nasal Cannula 3.00 02/10/19 17:00 105 23 147/90 (109) 98 Nasal Cannula 3.00 02/10/19 16:36 98.3 102 17 159/95 (116) 97 02/10/19 16:35 Nasal Cannula 3.00 02/10/19 16:11 105 18 153/88 (109) 96 Nasal Cannula 3.00 02/10/19 15:06 99 20 172/92 (118) 96 Nasal Cannula 3.00 02/10/19 14:29 97 Nasal Cannula 5.00 02/10/19 14:00 89 23 143/90 (107) 98 Nasal Cannula 5.00 02/10/19 13:10 87 02/10/19 13:00 82 30 133/77 (95) 98 Nasal Cannula 5.00 02/10/19 12:20 Nasal Cannula 5.00 02/10/19 12:00 85 12 133/80 (97) 99 Nasal Cannula 5.00 02/10/19 11:00 88 28 149/94 (112) 97 Vapotherm 30.00 15.00 02/10/19 10:15 98 Nasal Cannula 5.00 02/10/19 10:00 94 21 126/79 (95) 97 Vapotherm 30.00 15.00 02/10/19 09:55 99 Nasal Cannula 5.00 02/10/19 09:00 102 26 145/94 (111) 97 Vapotherm 30.00 15.00 02/10/19 08:35 Vapotherm 10.00 30 02/10/19 08:00 96 26 97 Vapotherm 30.00 15.00 02/10/19 07:00 98.1 02/10/19 07:00 100 02/10/19 07:00 104 31 133/74 (93) 97 Vapotherm 30.00 15.00 02/10/19 06:25 97 Vapotherm 13.00 36 02/10/19 06:00 105 25 129/74 (92) 96 Vapotherm 37.00 15.00 02/10/19 05:00 113 36 146/85 (105) 95 Vapotherm 37.00 15.00 02/10/19 04:30 Vapotherm 15.00 50 02/10/19 04:00 113 27 185/100 (128) 96 Vapotherm 37.00 15.00 I & O 02/11/19 07:00 Intake Total 3160 ml Output Total 2700 ml Balance 460 ml Height & Weight Height: 6'1.00" Weight: 274lbs. 1.0oz. 124.558567sz; 35.6 BMI Method:Stated General Appearance: No Apparent Distress, WD/WN, Anxious, Obese Neck: Normal Inspection, Non Tender, Supple Respiratory: Chest Non Tender, Lungs Clear, Normal Breath Sounds, No Accessory Muscle Use, No Respiratory Distress Cardiovascular: Regular Rate, Rhythm, No Edema, No Gallop, No Murmur, Normal Peripheral Pulses Capillary Refill: Less Than 3 Seconds Peripheral Pulses: 2+ Dorsalis Pedis (R), 2+ Left Dors-Pedis (L), 2+ Radial Pulses (R), 2+ Radial Pulses (L) Gastrointestinal: normal bowel sounds, non tender, soft Extremity: Normal Capillary Refill, Normal Inspection, Normal Range of Motion, Non Tender, No Calf Tenderness, Pedal Edema Neurologic/Psychiatric: Alert, No Motor/Sensory Deficits, Disoriented (oriented to person but not time or place ), Motor Weakness Skin: Normal Color, Damp Lymphatic: No Adenopathy Results Lab Laboratory Tests 02/10/19 03:12 02/11/19 03:10 Assessment/Plan Assessment/Plan Alcohol withdrawal with intention tremor and questionable seizure activity -Banana bag -Continue to monitor - precedex - titrated to 0.3 - ativan PRN Hypokalemia, hypomag, hypophos -replace 30Kphos, 60KCl, 2g Mg all IV UTI - continue Rocephin HTN IDDM FENGIPPx - fluids and electrolytes as above - 60CHO - SCDs RAFAEL HERNANDEZ DO 02/11/19 0621: Subjective Time Seen by a Provider: 06:15 Subjective/Events-last exam Pt is more awake this morning. Sister is sitting at bedside. He is still on precedex gtt. Exam Exam General Appearance: No Apparent Distress, WD/WN HEENT: PERRL/EOMI, Normal ENT Inspection, Pharynx Normal Neck: Full Range of Motion, Non Tender, Supple Respiratory: Chest Non Tender, No Accessory Muscle Use, No Respiratory Distress, Decreased Breath Sounds Cardiovascular: Regular Rate, Rhythm, No Edema, No Gallop Capillary Refill: Less Than 3 Seconds Gastrointestinal: normal bowel sounds, non tender, soft Extremity: Normal Capillary Refill, Normal Inspection, No Pedal Edema Neurologic/Psychiatric: Alert, Disoriented Skin: Normal Color, Warm/Dry Lymphatic: No Adenopathy Assessment/Plan Assessment/Plan Pneumonia - probably aspiration present at admission - Continue Rocephin for total Abx of 7days then D/C Alcohol withdrawal - precedex- Titrate to D/C -Banana bag -Continue to monitor HTN -Secondary to withdrawal. -Monitor Metabolic lactic acidosis- improving -Repeat LA Elevated LFTs and ammonia level -monitor Hypokalemia, hypomag -replace Supervisory-Addendum Brief Verification & Attestation Participated in pt care: history, physical Personally performed: exam, history Care discussed with: Medical Student Procedures: n/a Verification and Attestation of Medical Student E/M Service A medical student performed and documented this service in my presence. I reviewed and verified all information documented by the medical student and made modifications to such information, when appropriate. I personally performed the physical exam and medical decision making. Rafael Hernandez, Feb 11, 2019,06:21 BETTY MC,MED STUDENT Feb 11, 2019 03:58 RAFAEL HERNANDEZ DO Feb 11, 2019 06:21
[2019-02-11] MEDS ORDERED: POTASSIUM PHOSPHATE INJ 30 MM in NS (IVPB) 250 ML IV ONE (04:30)
[2019-02-11] MEDS ORDERED: LORazepam INJ 2 MG/ML (ATIVAN) VIAL IV PRN (04:30)
[2019-02-11] MEDS: POTASSIUM CL 10MEQ/50ML IVPB 50 ML IV SCH ×7 (04:48→13:13)
[2019-02-11] MEDS: KCL 20 MEQ TAB (K-DUR) PO SCH (04:49)
[2019-02-11] MEDS: MAGNESIUM 1 GM/100 ML IVPB 100 ML IV SCH ×4 (04:49→09:00)
[2019-02-11] MEDS: inSUlin ASPART (NovoLOG) 1 UNIT/0.01 ML (CHARGE PER UNIT) SQ SCH ×4 (04:51→20:28)
[2019-02-11] MEDS: CATHETER FLUSH 10 ML SYR IV SCH ×3 (06:32→22:00)
--- NOTE | 2019-02-11 08:08 | Diagnostic Imaging Report ---
INDICATION: Respiratory failure. Frontal chest obtained at 3:27 a.m. and compared to yesterday. FINDINGS: Heart is mildly enlarged. Mediastinal silhouette appears unremarkable. There is no new infiltrate or pneumothorax or pleural fluid. Left-sided PICC line is unchanged. IMPRESSION: No acute pulmonary infiltrate or pleural fluid. Left-sided PICC line unchanged. Dictated by: Dictated on workstation # [id number]
[2019-02-11] MEDS: PANTOPRAZOLE 40 MG (PROTONIX) VIAL IV SCH ×2 (08:14→20:22)
[2019-02-11] MEDS: cefTRIAXone FOR IV USE 1,000 MG in WATER (STERILE) FOR INJECTION 10 ML IV SCH (08:14)
[2019-02-11] MEDS: CARVEDILOL 3.125 MG (COREG) TABLET PO SCH ×2 (08:14→20:22)
[2019-02-11] MEDS: amLODIPine 10 MG (NORVASC) TAB PO SCH (08:14)
[2019-02-11] MEDS: lisINopril 40 MG (PRINIVIL) TABLET PO SCH (08:14)
[2019-02-11] MEDS: HYDROCHLOROTHIAZIDE 25 MG (HCTZ) TAB PO SCH (08:15)
[2019-02-11] MEDS: APAP 325 MG/10.15 ML LIQ (TYLENOL) UDC GT PRN (08:15)
[2019-02-11] MEDS: THIAMINE INJECTION 100 MG, FOLIC ACID INJECTION 1 MG, VITAMIN MULTI INJECTION 10 ML, MA... IV SCH ×5 (08:16)
--- NOTE | 2019-02-11 09:12 | Occupational Ther Daily Note ---
OT Current Status-Daily Note Subjective pt sitting on EOB upon OT / PT arrival. pt agreed to TX session. co treatment secondary of complexity of pt deficits requiring skills of both disciplines Mental Status/Objective Patient Orientation: Confused Therapy Code Descriptions/Definitions Functional [place] Measure: 0=Not Assessed/NA 4=Minimal Assistance 1=Total Assistance 5=Supervision or Setup 2=Maximal Assistance 6=Modified [place] 3=Moderate Assistance 7=Complete [place] Attachments: Petersen Catheter, IV, Oxygen, Telemetry ADL-Treatment Toileting (FIM): 1 (required assist with 3/3 toelting tasks ) Transfers (B, C, W/C) (FIM): 1 (X 2 person assist. required strong verbal and tactile cuing. ) Toilet/Commode Transfer (FIM): 1 (X 2 person assist. required strong verbal and tactile cuing. SPT using RW ) pt required strong verbal and tactile cuing during treatment with increase timing to process demands. pt sitting in BSC post session. NSG aware. pt mother sitting in room. all needs met. Education OT Patient Education: Modified ADL techniques, Progress toward Goal/Update tx plan, Purpose of tx/functional activities, Safety issues, Transfer techniques Teaching Recipient: Patient Teaching Methods: Demonstration, Discussion Response to Teaching: Reinforcement Needed OT Short Term Goals Short Term Goals Eating(FIM): 2 Grooming(FIM): 2 Transfers (B,C,W/C) (FIM): 3 1=Demonstrate adherence to instructed precautions during ADL tasks. 2=Patient will verbalize/demonstrate understanding of assistive devices/modifications for ADL. 3=Patient will improve strength/tolerance for activity to enable patient to perform ADL's. OT Exhaust Tender Goals Senior Living Goals Time Frame: Mar 02, 2019 Eating (FIM): 5 Grooming(FIM): 5 Bathing(FIM): 5 Upper Body Dressing(FIM): 5 Lower Body Dressing(FIM): 5 Toileting(FIM): 5 Transfers (B,C,W/C) (FIM): 5 Toilet/Commode Transfer(FIM): 5 Additional Goals: 1-Demonstrate ADL Tasks, 2-Verbalize Understanding, 3- ImproveStrength/Marek 1=Demonstrate adherence to instructed precautions during ADL tasks. 2=Patient will verbalize/demonstrate understanding of assistive devices/modifications for ADL. 3=Patient will improve strength/tolerance for activity to enable patient to perform ADL's. OT Education/Plan Problem List/Assessment Assessment: Decreased Activ Tolerance, Decreased Safety Aware, Decreased UE Strength, Dependent Transfers, Impaired Bed Mobility, Impaired Cognition, Impaired Coordination, Impaired Funct Balance, Impaired I ADL's, Impaired Self- Care Skills Discharge Recommendations Plan/Recommendations: Continue POC Therapy Discharge Recommendati: Post Acute OT Treatment Plan/Plan of Care Treatment,Training & Education: Yes Patient would benefit from OT for education, treatment and training to promote independence in ADL's, mobility, safety and/or upper extremity function for ADL's. Plan of Care: ADL Retraining, Caregiver Training, Functional Mobility, Group Exercise/Act as Ind, UE Funct Exercise/Act Treatment Duration: Mar 02, 2019 Frequency: 5 times per week Estimated Hrs Per Day: .25 hour per day Agreement: Yes Rehab Potential: Fair Time/GCodes Start Time: 08:15 Stop Time: 08:40 Billed Treatment Time ADL 25 minutes, 2 units SILVIO LAMAS OT Feb 11, 2019 09:12
--- NOTE | 2019-02-11 11:01 | NUR ---
Pastoral care visit, long visit with pt about a myriad od topics, primarily life review and some discussion about circumstances surrounding this hospitalization.
--- NOTE | 2019-02-11 11:15 | Physical Therapy Daily Note ---
PT Daily Note-Current Subjective CoTreat with OT due to patient current LOF Pain Numeric Pain Scale: 0-No Pain Location: No Pain Reported Mental Status Patient Orientation: Person, Time, Situation Transfers Therapy Code Descriptions/Definitions Functional [place] Measure: 0=Not Assessed/NA 4=Minimal Assistance 1=Total Assistance 5=Supervision or Setup 2=Maximal Assistance 6=Modified [place] 3=Moderate Assistance 7=Complete [place] Therapy Quality Codes: 6 Independent with activity with or without an assistive device 5 Patient requires set up or clean up by helper. Patient completes activity by themselves 4 Supervision or touching assist (CGA). [place] provide cues , steadying assist 3 The helper provides less than half the effort to complete the activity 2 The helper provides more than half the effort to complete the activity 1 Dependent. The helper does all the effort to complete an activity 7 Patient refused to complete or attempt activity 9 The patient did not perform the activity before the current illness or injury 88 Not attempted due to Medical conditions or safety concerns Transfers (B, C, W/C) (FIM): 2 Scootin Sit to/from Stand: 2 Bed to/from Chair: 2 max assist x 2 with sit to stand to FWW and with SPT bed to commode to recliner Weight Bearing Right Lower Extremity: Right Weight Bearing/Tolerated Left Lower Extremity: Left Weight Bearing/Tolerated Exercises Seated Therapy Exercises: Ankle pumps, Long arc quads Seated Reps: 15 (2 sets) Assessment Patient improving with gross motor skills. PT to increase activity as tolerated by patient. PT Short Term Goals Short Term Goals Time Frame: Feb 16, 2019 Transfers (B,C,W/C) (FIM): 3 Gait (FIM): 1 Gait Distance Comment: 5' Gait Level of Assist: 4 Gait Assistive Device: FWW PT Plan Treatment/Plan Treatment Plan: Continue Plan of Care Treatment Plan: Bed Mobility, Concurrent Therapy, Education, Functional Activity Marek, Functional Strength, Gait, Safety, Therapeutic Exercise, Transfers Treatment Duration: Feb 16, 2019 Frequency: 6 times per week Estimated Hrs Per Day: .25 hour per day Patient and/or Family Agrees t: Yes Time/GCodes Time In: 815 Time Out: 838 Total Billed Treatment Time: 23 Total Billed Treatment 1 visit FA x 2 23min GREGG DANIELLE PT Feb 11, 2019 11:15
--- NOTE | 2019-02-11 13:42 | Progress Note ---
Subjective Subjective/Events-last exam Afebrile, improving, but still confused. Focused Exam Lactate Level 02/10/19 07:05: Lactic Acid Level 0.89 Objective Exam Last Set of Vital Signs Vital Signs Date Time Temp Pulse Resp B/P (MAP) Pulse Ox O2 Delivery O2 Flow Rate FiO2 02/11/19 12:00 96.9 02/11/19 10:29 97 Nasal Cannula 2.00 02/11/19 10:00 90 18 151/78 (102) 02/10/19 08:35 30 Capillary Refill : Less Than 3 Seconds I&O Intake and Output 02/11/19 00:00 Intake Total 3580 ml Output Total 4750 ml Balance -1170 ml Intake Oral 2220 ml IV Total 1360 ml Output Urine Total 4750 ml # Bowel Movements 8 General: Alert, No Acute Distress Lungs: Clear to Auscultation, Normal Air Movement Heart: Regular Rate, No Murmurs Abdomen: Normal Bowel Sounds, Soft Neuro: Other (oriented to self only) Psych/Mental Status: Mood NL Results/Procedures Lab Laboratory Tests 02/10/19 15:37: Glucometer 231H 02/10/19 19:49: Glucometer 208H 02/11/19 03:10: White Blood Count 7.3, Red Blood Count 4.13L, Hemoglobin 12.3L, Hematocrit 36L, Mean Corpuscular Volume 87, Mean Corpuscular Hemoglobin 30, Mean Corpuscular Hemoglobin Concent 34, Red Cell Distribution Width 15.0H, Platelet Count 160, Mean Platelet Volume 10.3, Neutrophils (%) (Auto) 75, Lymphocytes (%) (Auto) 14, Monocytes (%) (Auto) 8, Eosinophils (%) (Auto) 3, Basophils (%) (Auto) 0, Neutrophils # (Auto) 5.5, Lymphocytes # (Auto) 1.0, Monocytes # (Auto) 0.6, Eosinophils # (Auto) 0.2, Basophils # (Auto) 0.0, Sodium Level 136, Potassium Level 2.8L, Chloride Level 104, Carbon Dioxide Level 20L, Anion Gap 12, Blood Urea Nitrogen 11, Creatinine 0.54L, Estimat Glomerular Filtration Rate > 60, BUN/Creatinine Ratio 20, Glucose Level 170H, Calcium Level 7.8L, Phosphorus Level 2.0L, Magnesium Level 1.6 02/11/19 11:37: Glucometer 238H Microbiology 02/03/19 Blood Culture - Final, Complete No growth 02/06/19 Mycobacterial Culture - Preliminary, Resulted 02/04/19 Urine Culture - Final, Complete NO GROWTH Assessment/Plan Assessment/Plan (1) Hypercapnic respiratory failure Status: Acute Assessment & Plan: Management per Dr. Hernandez. Improving pH and PCO2, remains intubated. On nebulizer treatments as well as acetylcysteine. 02/09 plan for extubation later this am if possible. 02/10 currently on vapotherm with 35% FiO2, weaning as tolerated. 02/11 stable on nasal cannula Qualifiers: Qualified Codes: J96.02 - Acute respiratory failure with hypercapnia (2) Pneumonia Status: Acute Assessment & Plan: Zosyn and vancomycin, bronch with staph 02/09 continue Zosyn 02/10 abx narrowed to ceftriaxone Qualifiers: (3) Fatty liver Status: Acute Assessment & Plan: Noted on abdominal CT. Suspect alcoholic hepatitis. (4) Thrombocytopenia Status: Resolved Assessment & Plan: Improving, concerning given his fatty liver and alcoholism. Monitor closely. (5) Hyperammonemia Status: Resolved Assessment & Plan: Started on lactulose, improved. (6) Elevated LFTs Status: Resolved Assessment & Plan: Suspect alcoholic hepatitis/fatty liver. Hep panel and HIV neg. (7) Hematuria Status: Acute Assessment & Plan: Urine culture negative, no obstructing stone or noted renal abnormality (2 mm nonobstructing left stone) on CT, may need cystoscopy in future if persists. (8) Ileus Status: Resolved Assessment & Plan: CT concerning for ileus vs SBO. NG in place, having adequate stool output per nursing. On IV reglan. 02/10 tolerating diet this am, monitor (9) Altered mental status Status: Acute Assessment & Plan: Was requiring a lot of sedation for signs of alcohol withdrawal, is improving slowly. Minimize lines and sedating meds. (10) DVT prophylaxis Status: Acute Assessment & Plan: Low risk on admission scoring. Clinical Quality Measures DVT/VTE Risk/Contraindication: Risk Factor Score Per Nursin RFS Level Per Nursing on Admit: 2=Moderate HAILEY STEWART MD Feb 11, 2019 13:42
--- NOTE | 2019-02-11 14:17 | Speech Therapy Daily Note ---
Speech Daily Progress Note Subjective Date Seen by Provider: Feb 11, 2019 Time Seen by Provider: 00:15 The patient has improved, however he is only oriented to self. Objective Patient followed verbal cues for alternating his food:drink at 50% with mod to max cuing. Assessment Assessment Current Status: Fair Progress Treatment Plan Continue Plan of Care Speech Short Term Goals Short Term Goals Short Term Goals 1) The patient will tolerate least restrictive diet level without s/s of aspiration at 90% or greater. 2) The patient will utilize compensatory strategies as trained at 90% or greater with minimal verbal cues. Speech Prison Goals [employer] Goals The patient will maintain adequate nutrition/hydration via safe effective swallow function. Speech-Plan Patient/Family Goals Patient/Family Goals: Patient plans on returning home upon discharge from the hospital. Treatment Plan Speech Therapy Treatment Plan: Continue Plan of Care Patient is showing slight progress. Treatment Duration: Feb 16, 2019 Frequency: 2 times per week Estimated Hrs Per Day: .25 hour per day Rehab Potential: Fair Barriers to Learning: Patient is oriented to self only. Pt/Family Agrees to Plan: Yes Safety Risks/Education Teaching Recipient: Patient Teaching Methods: Demonstration, Discussion Response to Teaching: Verbalize Understanding, Return Demonstration Education Topics Provided: Continued safety of oral intake. Time Speech Therapy Time In: 11:45 Speech Therapy Time Out: 12:00 Total Billed Time: 15 Billed Treatment Time 1BRI[address] ST Feb 11, 2019 14:17
[2019-02-12] VITALS (13 sets, daily range): BP systolic 117–176; BP diastolic 63–90
[2019-02-12] MEDS: MAGNESIUM 1 GM/100 ML IVPB 100 ML IV SCH ×4 (02:05→07:15)
[2019-02-12] MEDS: RT-ALBUTEROL/IPRATROPIUM 3 ML (DUONEB) VIAL INH SCH ×6 (02:30→21:30)
[2019-02-12 03:22] LABS: BASOPHILS # (AUTO) 0.1 10^3/uL (0.0-0.1); BASOPHILS % (AUTO) 1 % (0-10); EOSINOPHILS # (AUTO) 0.1 10^3/uL (0.0-0.3); EOSINOPHILS % (AUTO) 1 % (0-10); HEMATOCRIT 37 % (40-54); HEMOGLOBIN 12.9 G/DL (13.3-17.7); LYMPHOCYTES # (AUTO) 1.2 X 10^3 (1.0-4.0); LYMPHOCYTES % (AUTO) 14 % (12-44); MEAN CORPUSCULAR HEMOGLOBIN 30 PG (25-34); MEAN CORPUSCULAR HGB CONC 35 G/DL (32-36); MEAN CORPUSCULAR VOLUME 86 FL (80-99); MEAN PLATELET VOLUME 10.5 FL (7.4-10.4); MONOCYTES # (AUTO) 0.7 X 10^3 (0.0-1.0); MONOCYTES % (AUTO) 8 % (0-12); NEUTROPHILS # (AUTO) 6.4 X 10^3 (1.8-7.8); NEUTROPHILS % (AUTO) 76 % (42-75); PLATELET COUNT 184 10^3/uL (130-400); RED CELL DISTRIBUTION WIDTH 14.6 % (10.0-14.5); WHITE BLOOD COUNT 8.4 10^3/uL (4.3-11.0)
[2019-02-12 03:38] LABS: BUN/CREATININE RATIO 19; CALCIUM 7.8 MG/DL (8.5-10.1); CARBON DIOXIDE 20 MMOL/L (21-32); CHLORIDE 101 MMOL/L (98-107); CREATININE SERUM 0.59 MG/DL (0.60-1.30); GFR ESTIMATED > 60; GLUCOSE 201 MG/DL (70-105); MAGNESIUM 1.7 MG/DL (1.6-2.4); PHOSPHORUS 2.6 MG/DL (2.3-4.7); POTASSIUM 2.9 MMOL/L (3.6-5.0); SODIUM 135 MMOL/L (135-145)
[2019-02-12] MEDS: POTASSIUM CL 10MEQ/50ML IVPB 50 ML IV SCH ×6 (06:00→08:49)
[2019-02-12] MEDS: inSUlin ASPART (NovoLOG) 1 UNIT/0.01 ML (CHARGE PER UNIT) SQ SCH ×4 (06:51→21:28)
[2019-02-12] MEDS: KCL 20 MEQ TAB (K-DUR) PO SCH (06:53)
[2019-02-12] MEDS: CATHETER FLUSH 10 ML SYR IV SCH ×3 (06:53→20:14)
--- NOTE | 2019-02-12 06:57 | Diagnostic Imaging Report ---
Portable erect AP chest at 3:31. Indication: Respiratory distress. Findings: The mild cardiomegaly noted on the prior exam of 02/11/2019 is again evident and not significantly changed. The lungs remain clear. There is still no sign of failure, pneumonia or pleural effusion. The mediastinum is not widened. The osseous structures are intact. The left-sided PICC line seen previously is again evident. The tip of the line appears to overlie the brachiocephalic vein. Impression: Stable chest. There has been no adverse change since the prior exam. Dictated by: Dictated on workstation # [id number]
[2019-02-12] MEDS ORDERED: KCL 10 MEQ TAB (MICRO K) PO NR (07:17)
--- NOTE | 2019-02-12 07:17 | Pulmonary Progress Note ---
Subjective Time Seen by a Provider: 07:16 Subjective/Events-last exam PT is doing much better however still a little confused at times and very weak. Sepsis Event Evaluation Height, Weight, BMI Height: 6'1.00" Weight: 278lbs. 3.0oz. 126.275466tm; 35.6 BMI Method:Stated Focused Exam Lactate Level 02/10/19 07:05: Lactic Acid Level 0.89 Exam Exam Vital Signs Date Time Temp Pulse Resp B/P (MAP) Pulse Ox O2 Delivery O2 Flow Rate FiO2 02/12/19 06:21 96 Nasal Cannula 2.00 02/12/19 06:00 98 17 151/76 (101) 93 Nasal Cannula 2.00 02/12/19 05:00 100 22 176/85 (115) 94 Nasal Cannula 2.00 02/12/19 04:45 Nasal Cannula 2.00 02/12/19 04:03 99.4 02/12/19 04:00 93 22 162/90 (114) 92 Nasal Cannula 1.00 02/12/19 04:00 95 Room Air 02/12/19 03:00 100 16 156/86 (109) 94 Nasal Cannula 1.00 02/12/19 02:33 Nasal Cannula 1.00 02/12/19 02:30 95 Nasal Cannula 2.00 02/12/19 02:00 98 20 153/84 (107) 93 Room Air 02/12/19 01:00 93 02/12/19 01:00 99 17 154/88 (110) 92 Room Air 02/12/19 00:00 95 Room Air 02/12/19 00:00 96.6 02/12/19 00:00 96 19 150/88 (108) 94 Room Air 02/11/19 23:00 93 22 155/91 (112) 95 Nasal Cannula 1.50 02/11/19 22:00 99 23 135/89 (104) 97 Nasal Cannula 1.50 02/11/19 21:00 100 20 164/95 (118) 97 Nasal Cannula 1.50 02/11/19 20:00 95.8 02/11/19 20:00 Nasal Cannula 1.50 02/11/19 20:00 99 16 171/95 (120) 96 Nasal Cannula 1.50 02/11/19 19:17 Nasal Cannula 1.50 02/11/19 19:10 97 Nasal Cannula 1.50 02/11/19 19:00 120 02/11/19 19:00 112 18 97 Nasal Cannula 2.00 02/11/19 18:00 99 24 145/82 (103) 96 Nasal Cannula 2.00 02/11/19 17:00 100 18 148/83 (104) 95 Nasal Cannula 2.00 02/11/19 16:00 Nasal Cannula 3.00 02/11/19 16:00 96.1 02/11/19 16:00 96 20 157/88 (111) 95 Nasal Cannula 2.00 02/11/19 15:00 89 20 151/101 (118) 98 Nasal Cannula 2.00 02/11/19 14:34 97 Nasal Cannula 2.00 02/11/19 14:00 89 18 151/86 (107) 94 Nasal Cannula 2.00 02/11/19 13:00 90 22 150/79 (102) 96 Nasal Cannula 2.00 02/11/19 13:00 91 02/11/19 12:35 Nasal Cannula 3.00 02/11/19 12:00 94 20 145/88 (107) 96 Nasal Cannula 2.00 02/11/19 12:00 96.9 02/11/19 11:00 21 151/81 (104) 97 Nasal Cannula 2.00 02/11/19 10:29 97 Nasal Cannula 2.00 02/11/19 10:00 90 18 151/78 (102) 96 Nasal Cannula 2.00 02/11/19 09:00 101 27 95/71 (79) Nasal Cannula 2.00 02/11/19 08:15 Nasal Cannula 3.00 02/11/19 08:00 115 18 152/103 (119) 100 Nasal Cannula 2.00 I & O 02/12/19 07:00 Intake Total 4670 ml Output Total 4050 ml Balance 620 ml Height & Weight Height: 6'1.00" Weight: 278lbs. 3.0oz. 126.055313xu; 35.6 BMI Method:Stated General Appearance: No Apparent Distress, WD/WN HEENT: PERRL/EOMI, Normal ENT Inspection, Pharynx Normal Neck: Full Range of Motion, Non Tender, Supple Respiratory: Chest Non Tender, No Accessory Muscle Use, No Respiratory Distress, Decreased Breath Sounds Cardiovascular: Regular Rate, Rhythm, No Edema, No Gallop Capillary Refill: Less Than 3 Seconds Peripheral Pulses: 2+ Dorsalis Pedis (R), 2+ Left Dors-Pedis (L), 2+ Radial Pulses (R), 2+ Radial Pulses (L) Gastrointestinal: normal bowel sounds, non tender, soft Extremity: Normal Capillary Refill, Normal Inspection, No Pedal Edema Neurologic/Psychiatric: Alert, Disoriented Skin: Normal Color, Warm/Dry Lymphatic: No Adenopathy Results Lab Laboratory Tests 02/11/19 03:10 02/12/19 03:15 Assessment/Plan Assessment/Plan Pneumonia - probably aspiration present at admission -Change Rocephin to Omnicef until Thursday then D/c Debility/weakness -PT/OT Alcohol withdrawal -Banana bag -Continue to monitor Nocturnal hypoxia - weakness -Will follow as out pt for sleep testing. HTN -Secondary to withdrawal. -Monitor Metabolic lactic acidosis- improving -Repeat LA Elevated LFTs and ammonia level -monitor Hypokalemia, hypomag -replace Pt is ok for discharge from pulmonary standpoint. I am going to transfer to 4th floor and sign off. RAFAEL SOUSA DO Feb 12, 2019 07:17
[2019-02-12] MEDS: HYDROCHLOROTHIAZIDE 25 MG (HCTZ) TAB PO SCH (08:47)
[2019-02-12] MEDS: lisINopril 40 MG (PRINIVIL) TABLET PO SCH (08:47)
[2019-02-12] MEDS: amLODIPine 10 MG (NORVASC) TAB PO SCH (08:47)
[2019-02-12] MEDS: CARVEDILOL 3.125 MG (COREG) TABLET PO SCH ×2 (08:47→20:14)
[2019-02-12] MEDS: CEFDINIR 300 MG (OMNICEF) CAP PO SCH ×2 (08:47→20:14)
[2019-02-12] MEDS: THIAMINE INJECTION 100 MG, FOLIC ACID INJECTION 1 MG, VITAMIN MULTI INJECTION 10 ML, MA... IV SCH ×5 (08:48)
[2019-02-12] MEDS: PANTOPRAZOLE 40 MG (PROTONIX) VIAL IV SCH ×2 (08:48→20:14)
--- NOTE | 2019-02-12 09:33 | Progress Note - Hospitalist ---
Subjective HPI/CC On Admission Date Seen by Provider: Feb 12, 2019 Time Seen by Provider: 07:30 Chief complaint: Respiratory failure History of present illness: This is a 58-year-old white male clinic patient of Dr. shaffer of [facility] who presented to the [place] ER after syncopal episode. Work-up ensued revealing alcohol withdrawal and respiratory failure with ABG showing pH of 7.1 and CO2 of 90 with CO2 retention. He was emergently intubated moved to [facility] ICU for pulmonary expertise. At this current time mother is at the bedside and she apparently does not know how much alcohol he drinks on a regular basis which seems to be a lifelong addiction issue. We will monitor the situation closely and maintain ventilator. Subjective/Events-last exam Patient alert sitting in bed voicing no complaints except that he does no weakness with transfers. He still little confused as he was requesting discharge today so that he can go to a meeting. He works for [employer], whenwe point ed out that it is Thursday and he states that he lost track of the time. Focused Exam Lactate Level 02/10/19 07:05: Lactic Acid Level 0.89 Objective Exam Vital Signs Vital Signs Date Time Temp Pulse Resp B/P (MAP) Pulse Ox O2 Delivery O2 Flow Rate FiO2 02/12/19 09:00 111 25 140/80 (100) Nasal Cannula 2.00 02/12/19 07:00 87 02/12/19 04:03 99.4 02/10/19 08:35 30 Capillary Refill : Less Than 3 Seconds General Appearance: No Apparent Distress, WD/WN Respiratory: No Accessory Muscle Use, No Respiratory Distress, Other (Few basilar rales that clear with several deep inspirations chest otherwise clear.) Cardiovascular: Regular Rate, Rhythm, No Edema, No Gallop, No JVD, No Murmur, Normal Peripheral Pulses Results/Procedures Lab Laboratory Tests 02/12/19 03:15 Patient resulted labs reviewed. Assessment/Plan Assessment and Plan Assess & Plan/Chief Complaint (1) Hypercapnic respiratory failure Status: Acute Assessment & Plan: Management per Dr. Hernandez. Improving pH and PCO2, remains i ntubated. On nebulizer treatments as well as acetylcysteine. 02/09 plan for extubation later this am if possible. 02/10 currently on vapotherm with 35% FiO2, weaning as tolerated. 02/11 stable on nasal cannula 02/12 doing well patient scheduled for transfer to the floor if he is independent with ambulation and confusion continues to improve will discuss possible discharge tomorrow as Dr. Hernandez has indicated his consent for discharge. Qualifiers: Qualified Codes: J96.02 - Acute respiratory failure with hypercapnia (2) Pneumonia Status: Acute Assessment & Plan: Zosyn and vancomycin, bronch with staph 02/09 continue Zosyn 02/10 abx narrowed to ceftriaxone Qualifiers: (3) Fatty liver Status: Acute Assessment & Plan: Noted on abdominal CT. Suspect alcoholic hepatitis. (4) Thrombocytopenia Status: Resolved Assessment & Plan: Improving, concerning given his fatty liver and alcoholism. Monitor closely. (5) Hyperammonemia Status: Resolved Assessment & Plan: Started on lactulose, improved. (6) Elevated LFTs Status: Resolved Assessment & Plan: Suspect alcoholic hepatitis/fatty liver. Hep panel and HIV neg. (7) Hematuria Status: Acute Assessment & Plan: Urine culture negative, no obstructing stone or noted renal abnormality (2 mm nonobstructing left stone) on CT, may need cystoscopy in fu ture if persists. (8) Ileus Status: Resolved Assessment & Plan: CT concerning for ileus vs SBO. NG in place, having adequate stool output per nursing. On IV reglan. 02/10 tolerating diet this am, monitor (9) Altered mental status Status: Acute Assessment & Plan: Was requiring a lot of sedation for signs of alcohol withdrawal, is improving slowly. Minimize lines and sedating meds. (10) DVT prophylaxis Status: Acute Assessment & Plan: Low risk on admission scoring. Clinical Quality Measures DVT/VTE Risk/Contraindication: Risk Factor Score Per Nursin RFS Level Per Nursing on Admit: 2=Moderate VANDANA MCCLOUD MD Feb 12, 2019 09:33
[2019-02-12] MEDS: APAP 325 MG/10.15 ML LIQ (TYLENOL) UDC GT PRN (10:27)
--- NOTE | 2019-02-12 12:03 | Physical Therapy Daily Note ---
PT Daily Note-Current Subjective Pt alert and requests to get into bedside chair. Pt has some confusion. Transfers Therapy Code Descriptions/Definitions Functional [place] Measure: 0=Not Assessed/NA 4=Minimal Assistance 1=Total Assistance 5=Supervision or Setup 2=Maximal Assistance 6=Modified [place] 3=Moderate Assistance 7=Complete [place] Therapy Quality Codes: 6 Independent with activity with or without an assistive device 5 Patient requires set up or clean up by helper. Patient completes activity by themselves 4 Supervision or touching assist (CGA). [place] provide cues , steadying assist 3 The helper provides less than half the effort to complete the activity 2 The helper provides more than half the effort to complete the activity 1 Dependent. The helper does all the effort to complete an activity 7 Patient refused to complete or attempt activity 9 The patient did not perform the activity before the current illness or inj ury 88 Not attempted due to Medical conditions or safety concerns Supine to/from Sit: 4 Sit to/from Stand: 4 Bed to/from Chair: 4 Used fWW with Min A for tactile and physical cues for balance and walker guidance. Pt took 3-4 steps with FWW and Min A to get to bedside chair. Weight Bearing Right Lower Extremity: Right Weight Bearing/Tolerated Left Lower Extremity: Left Weight Bearing/Tolerated Exercises LE AAROM x 10 reps Assessment Pt showing improved strength in the core and LE resulting in improved bed mobility and transfers. PT Short Term Goals Short Term Goals Time Frame: Feb 16, 2019 Transfers (B,C,W/C) (FIM): 3 Gait (FIM): 1 Gait Distance Comment: 5' Gait Level of Assist: 4 Gait Assistive Device: FWW PT Plan Treatment/Plan Treatment Plan: Continue Plan of Care Treatment Plan: Bed Mobility, Concurrent Therapy, Education, Functional Activity Marek, Functional Strength, Gait, Safety, Therapeutic Exercise, Transfers Treatment Duration: Feb 16, 2019 Frequency: 6 times per week Estimated Hrs Per Day: .25 hour per day Patient and/or Family Agrees t: Yes Time/GCodes Time In: 0900 Time Out: 09 Total Billed Treatment Time: 20 Total Billed Treatment visit, ex 5min, FA 15 min MARISSA WATSON PT Feb 12, 2019 12:03
[2019-02-12] MEDS: LORazepam 0.5 MG (ATIVAN) TABLET PO PRN (15:25)
[2019-02-13] VITALS: BP 148/80
[2019-02-13] MEDS: RT-ALBUTEROL/IPRATROPIUM 3 ML (DUONEB) VIAL INH SCH ×6 (02:15→23:00)
[2019-02-13 04:00] VITALS: BP 140/69
[2019-02-13] MEDS: CATHETER FLUSH 10 ML SYR IV SCH ×3 (05:20→20:48)
[2019-02-13 05:34] LABS: BASOPHILS % (AUTO) 0 % (0-10); EOSINOPHILS # (AUTO) 0.1 10^3/uL (0.0-0.3); EOSINOPHILS % (AUTO) 1 % (0-10); HEMATOCRIT 38 % (40-54); HEMOGLOBIN 12.9 G/DL (13.3-17.7); LYMPHOCYTES % (AUTO) 13 % (12-44); MEAN CORPUSCULAR HEMOGLOBIN 29 PG (25-34); MEAN CORPUSCULAR HGB CONC 34 G/DL (32-36); MEAN CORPUSCULAR VOLUME 87 FL (80-99); MEAN PLATELET VOLUME 10.4 FL (7.4-10.4); MONOCYTES # (AUTO) 0.6 X 10^3 (0.0-1.0); MONOCYTES % (AUTO) 8 % (0-12); NEUTROPHILS # (AUTO) 5.7 X 10^3 (1.8-7.8); NEUTROPHILS % (AUTO) 77 % (42-75); PLATELET COUNT 214 10^3/uL (130-400); WHITE BLOOD COUNT 7.4 10^3/uL (4.3-11.0)
[2019-02-13 06:05] LABS: BUN/CREATININE RATIO 14; CALCIUM 7.8 MG/DL (8.5-10.1); CARBON DIOXIDE 20 MMOL/L (21-32); CHLORIDE 103 MMOL/L (98-107); CREATININE SERUM 0.58 MG/DL (0.60-1.30); GFR ESTIMATED > 60; GLUCOSE 183 MG/DL (70-105); MAGNESIUM 1.7 MG/DL (1.6-2.4); PHOSPHORUS 3.1 MG/DL (2.3-4.7); POTASSIUM 3.6 MMOL/L (3.6-5.0); SODIUM 135 MMOL/L (135-145)
[2019-02-13] MEDS: POTASSIUM CL 10MEQ/50ML IVPB 50 ML IV SCH (06:28)
[2019-02-13] MEDS: MAGNESIUM 1 GM/100 ML IVPB 100 ML IV SCH ×3 (06:28→09:58)
[2019-02-13] MEDS: inSUlin ASPART (NovoLOG) 1 UNIT/0.01 ML (CHARGE PER UNIT) SQ SCH ×4 (06:37→20:47)
[2019-02-13] MEDS: KCL 20 MEQ TAB (K-DUR) PO SCH (06:37)
[2019-02-13] MEDS: lisINopril 40 MG (PRINIVIL) TABLET PO SCH (07:46)
[2019-02-13] MEDS: amLODIPine 10 MG (NORVASC) TAB PO SCH (07:46)
[2019-02-13] MEDS: CEFDINIR 300 MG (OMNICEF) CAP PO SCH ×2 (07:46→20:47)
[2019-02-13] MEDS: PANTOPRAZOLE 40 MG (PROTONIX) VIAL IV SCH ×2 (07:46→20:46)
[2019-02-13] MEDS: HYDROCHLOROTHIAZIDE 25 MG (HCTZ) TAB PO SCH (07:46)
[2019-02-13] MEDS: CARVEDILOL 3.125 MG (COREG) TABLET PO SCH ×2 (07:47→20:46)
[2019-02-13 08:00] VITALS: BP 167/89
--- NOTE | 2019-02-13 08:13 | Progress Note - Hospitalist ---
Subjective HPI/CC On Admission Date Seen by Provider: Feb 13, 2019 Time Seen by Provider: 08:09 Chief complaint: Respiratory failure History of present illness: This is a 58-year-old white male clinic patient of Dr. shaffer of [facility] who presented to the [place] ER after syncopal episode. Work-up ensued revealing alcohol withdrawal and respiratory failure with ABG showing pH of 7.1 and CO2 of 90 with CO2 retention. He was emergently intubated moved to [facility] ICU for pulmonary expertise. At this current time mother is at the bedside and she apparently does not know how much alcohol he drinks on a regular basis which seems to be a lifelong addiction issue. We will monitor the situation closely and maintain ventilator. Subjective/Events-last exam Patient appears oriented today he knows today is Thursday and is looking forward to watching that she use game later today. He voices no complaints and would like to go home. Objective Exam Vital Signs Vital Signs Date Time Temp Pulse Resp B/P (MAP) Pulse Ox O2 Delivery O2 Flow Rate FiO2 02/13/19 06:26 91 Room Air 2.00 02/13/19 04:00 97.5 103 20 140/69 (92) 02/10/19 08:35 30 Capillary Refill : Less Than 3 Seconds General Appearance: No Apparent Distress Respiratory: Chest Non Tender, Lungs Clear, Normal Breath Sounds, No Accessory Muscle Use, No Respiratory Distress Cardiovascular: Regular Rate, Rhythm, No Edema, No Gallop, No JVD, No Murmur Results/Procedures Lab Laboratory Tests 02/13/19 05:20 Patient resulted labs reviewed. Assessment/Plan Assessment and Plan Assess & Plan/Chief Complaint (1) Hypercapnic respiratory failure Status: Acute Assessment & Plan: Management per Dr. Hernandez. Improving pH and PCO2, remains intubated. On nebulizer treatments as well as acetylcysteine. 02/09 plan for extubation later this am if possible. 02/10 currently on vapotherm with 35% FiO2, weaning as tolerated. 02/11 stable on nasal cannula 02/12 doing well patient scheduled for transfer to the floor if he is independent with ambulation and confusion continues to improve will discuss possible discharge tomorrow as Dr. Hernandez has indicated his consent for discharge. 02/13 confusion much improved. Nursing staff states that he is still to patient assists with need for a walker due to weakness. At this point this is the only thing keeping him in the hospital continue physical therapy discharge when independent no focal deficits noted findings compatible with ICU weakness. Qualifiers: Qualified Codes: J96.02 - Acute respiratory failure with hypercapnia (2) Pneumonia Status: Acute Assessment & Plan: Zosyn and vancomycin, bronch with staph 02/09 continue Zosyn 02/10 abx narrowed to ceftriaxone Qualifiers: (3) Fatty liver Status: Acute Assessment & Plan: Noted on abdominal CT. Suspect alcoholic hepatitis. (4) Thrombocytopenia Status: Resolved Assessment & Plan: Improving, concerning given his fatty liver and alcoholism. Monitor closely. (5) Hyperammonemia Status: Resolved Assessment & Plan: Started on lactulose, improved. (6) Elevated LFTs Status: Resolved Assessment & Plan: Suspect alcoholic hepatitis/fatty liver. Hep panel and HIV neg. (7) Hematuria Status: Acute Assessment & Plan: Urine culture negative, no obstructing stone or noted renal abnormality (2 mm nonobstructing left stone) on CT, may need cystoscopy in future if persists. (8) Ileus Status: Resolved Assessment & Plan: CT concerning for ileus vs SBO. NG in place, having adequate stool output per nursing. On IV reglan. 02/10 tolerating diet this am, monitor (9) Altered mental status Status: Acute Assessment & Plan: Was requiring a lot of sedation for signs of alcohol withdrawal, is improving slowly. Minimize lines and sedating meds. (10) DVT prophylaxis Status: Acute Assessment & Plan: Low risk on admission scoring. Clinical Quality Measures DVT/VTE Risk/Contraindication: Risk Factor Score Per Nursin RFS Level Per Nursing on Admit: 2=Moderate VANDANA MCCLOUD MD Feb 13, 2019 08:13
--- NOTE | 2019-02-13 10:01 | NUR ---
TWO BAGS OF MAGNESIUM WERE HUNG BY NUT SHELLER NURSE IRAIDA VELASQUEZ. THIS RN COMPLETED THE 2 BAGS ORDERED FOR PT
[2019-02-13 16:14] VITALS: BP 144/73
[2019-02-13 19:30] VITALS: BP 136/71
[2019-02-13] MEDS ORDERED: ACETAMINOPHEN 325 MG TABLET PO PRN (20:30)
[2019-02-13] MEDS: LORazepam 0.5 MG (ATIVAN) TABLET PO PRN (20:52)
[2019-02-14] VITALS (13 sets, daily range): BP systolic 72–143; BP diastolic 38–86
[2019-02-14] MEDS: RT-ALBUTEROL/IPRATROPIUM 3 ML (DUONEB) VIAL INH SCH ×6 (02:50→22:17)
[2019-02-14 04:47] LABS: BASOPHILS % (AUTO) 1 % (0-10); EOSINOPHILS # (AUTO) 0.1 10^3/uL (0.0-0.3); EOSINOPHILS % (AUTO) 2 % (0-10); HEMATOCRIT 37 % (40-54); HEMOGLOBIN 12.5 G/DL (13.3-17.7); LYMPHOCYTES # (AUTO) 0.9 X 10^3 (1.0-4.0); LYMPHOCYTES % (AUTO) 15 % (12-44); MEAN CORPUSCULAR HEMOGLOBIN 30 PG (25-34); MEAN CORPUSCULAR HGB CONC 34 G/DL (32-36); MEAN CORPUSCULAR VOLUME 87 FL (80-99); MEAN PLATELET VOLUME 10.6 FL (7.4-10.4); MONOCYTES # (AUTO) 0.7 X 10^3 (0.0-1.0); MONOCYTES % (AUTO) 12 % (0-12); NEUTROPHILS # (AUTO) 4.4 X 10^3 (1.8-7.8); NEUTROPHILS % (AUTO) 71 % (42-75); PLATELET COUNT 208 10^3/uL (130-400); RED CELL DISTRIBUTION WIDTH 14.9 % (10.0-14.5); WHITE BLOOD COUNT 6.2 10^3/uL (4.3-11.0)
[2019-02-14 05:05] LABS: BUN/CREATININE RATIO 12; CARBON DIOXIDE 24 MMOL/L (21-32); CHLORIDE 100 MMOL/L (98-107); CREATININE SERUM 0.59 MG/DL (0.60-1.30); GFR ESTIMATED > 60; GLUCOSE 202 MG/DL (70-105); MAGNESIUM 1.7 MG/DL (1.6-2.4); PHOSPHORUS 3.2 MG/DL (2.3-4.7); POTASSIUM 3.2 MMOL/L (3.6-5.0); SODIUM 136 MMOL/L (135-145)
[2019-02-14] MEDS: CATHETER FLUSH 10 ML SYR IV SCH ×3 (05:12→22:10)
[2019-02-14] MEDS: POTASSIUM CL 10MEQ/50ML IVPB 50 ML IV SCH (05:14)
[2019-02-14] MEDS: MAGNESIUM 1 GM/100 ML IVPB 100 ML IV SCH ×3 (05:14→06:55)
[2019-02-14] MEDS: KCL 20 MEQ TAB (K-DUR) PO SCH (05:55)
[2019-02-14] MEDS: inSUlin ASPART (NovoLOG) 1 UNIT/0.01 ML (CHARGE PER UNIT) SQ SCH ×4 (05:55→21:44)
[2019-02-14] MEDS ORDERED: KCL 20 MEQ TAB (K-DUR) PO NR (08:00)
[2019-02-14] MEDS: PANTOPRAZOLE 40 MG (PROTONIX) VIAL IV SCH (08:13)
[2019-02-14] MEDS: CARVEDILOL 3.125 MG (COREG) TABLET PO SCH ×3 (08:13→21:26)
[2019-02-14] MEDS: HYDROCHLOROTHIAZIDE 25 MG (HCTZ) TAB PO SCH (08:13)
[2019-02-14] MEDS: lisINopril 40 MG (PRINIVIL) TABLET PO SCH (08:13)
[2019-02-14] MEDS: amLODIPine 10 MG (NORVASC) TAB PO SCH (08:13)
--- NOTE | 2019-02-14 11:22 | Physical Therapy Daily Note ---
PT Daily Note-Current Subjective Patient agrees to PT. Patient's mother is very attentive with assisting patient with basic needs. Education with family and patient on importance of performing tasks independent encouraged. Mental Status Patient Orientation: Normal For Age Transfers Therapy Code Descriptions/Definitions Functional [place] Measure: 0=Not Assessed/NA 4=Minimal Assistance 1=Total Assistance 5=Supervision or Setup 2=Maximal Assistance 6=Modified [place] 3=Moderate Assistance 7=Complete [place] Therapy Quality Codes: 6 Independent with activity with or without an assistive device 5 Patient requires set up or clean up by helper. Patient completes activity by themselves 4 Supervision or touching assist (CGA). [place] provide cues , steadying assist 3 The helper provides less than half the effort to complete the activity 2 The helper provides more than half the effort to complete the activity 1 Dependent. The helper does all the effort to complete an activity 7 Patient refused to complete or attempt activity 9 The patient did not perform the activity before the current illness or injury 88 Not attempted due to Medical conditions or safety concerns Transfers (B, C, W/C) (FIM): 6 Scootin Rollin Supine to/from Sit: 6 Sit to/from Stand: 6 refused to up in chair and returned to bed Weight Bearing Right Lower Extremity: Right Weight Bearing/Tolerated Left Lower Extremity: Left Weight Bearing/Tolerated Gait Training Gait (FIM): 5 Distance (FIM): 3=150 ft Distance: 300' x 1/200' x 1 Gait Level of Assist: 5 Gait Assistive Device: FWW safe and functional with FWW Exercises Seated Therapy Exercises: Ankle pumps, Long arc quads, Hip flexion Seated Reps: 15 (3 sets) Assessment Patient requires recovery periods secondary to fatigue/weakness due to inactivity. Patient is SBA with all mobility and encouraged to increase activity. PT Short Term Goals Short Term Goals Time Frame: Feb 16, 2019 Transfers (B,C,W/C) (FIM): 3 Gait (FIM): 1 Gait Distance Comment: 5' Gait Level of Assist: 4 Gait Assistive Device: FWW PT Plan Treatment/Plan Treatment Plan: Continue Plan of Care Treatment Plan: Bed Mobility, Concurrent Therapy, Education, Functional Activity Marek, Functional Strength, Gait, Safety, Therapeutic Exercise, Transfers Treatment Duration: Feb 16, 2019 Frequency: 6 times per week Estimated Hrs Per Day: .25 hour per day Patient and/or Family Agrees t: Yes Time/GCodes Time In: 1010 Time Out: 1036 Total Billed Treatment Time: 26 Total Billed Treatment 1 visit FA x 2 26 min GREGG DANIELLE PT Feb 14, 2019 11:22
--- NOTE | 2019-02-14 11:36 | NUR ---
DR. MERAZ NOTIFIED OF B/P 82/60 PULSE OF 127. O2 SATS 95% ON 6 LITERS PER NASAL CANNULA. PATIENT WAS COOL AND CLAMMY WHEN THIS RN PRESENTED TO HIS ROOM . NO NEW ORDERS AT THIS TIME, RT IN ROOM ATTENDING TO THIS PATIENT AT THIS TIME. NEW B/P WAS 77/49.
[2019-02-14] MEDS ORDERED: ENOXAPARIN 100 MG/1 ML (LOVENOX) SYR SC NR (11:52)
--- NOTE | 2019-02-14 11:53 | NUR ---
PTD LOVENOX STARTED LOVENOX 10MG SQ NOW, THEN LOVENOX 120MG STARTING AT 2200 (DOSED Q12H)
[2019-02-14] MEDS ORDERED: IOHEXOL 350 MG/ML 100 ML (OMNIPAQUE 350) VIAL IV ONE (12:00)
[2019-02-14] MEDS ORDERED: HOLD METFORMIN - RECEIVED CONTRAST 20 ML VIAL IV SCH (12:00)
[2019-02-14] MEDS ORDERED: NS 100 ML (IVPB) BAG IV ONE (12:00)
[2019-02-14] MEDS ORDERED: NS IV 1000 ML 1,000 ML ONE (12:14)
[2019-02-14] MEDS ORDERED: NS IV 1000 ML 1,000 ML IV SCH ×3 (12:30→13:45)
--- NOTE | 2019-02-14 12:34 | Diagnostic Imaging Report ---
PROCEDURE: CT angiography of the chest with contrast. TECHNIQUE: Multiple contiguous axial images were obtained through the chest after uneventful bolus administration of intravenous contrast. 3D reconstructed CTA MIP acquisitions were also performed. Auto Exposure Controls were utilized during the CT exam to meet ALARA standards for radiation dose reduction. INDICATION: Chest pain and dyspnea. FINDINGS: There are large filling defects extending across the main pulmonary artery bifurcation into both lungs. Filling defects involve all five major lobe arterial branches. Emboli may be occlusive particularly in the lower lobe branches. There is no significant pleural or pericardial fluid. There is mild groundglass density seen within the lower lobes of both lungs. Upper abdominal sections reveal small nonobstructing calculus in the upper pole of the left kidney. IMPRESSION: Extensive saddle pulmonary embolus extending into all branches of the lungs. Greatest embolus burden is in the lower lobes. There is also groundglass density indicating diffuse edema and/or pneumonitis which is most pronounced in the lower lobes. Critical finding Dictated by: Dictated on workstation # [id number]
--- NOTE | 2019-02-14 12:53 | NUR ---
PATIENT TO CTA AT THIS TIME A STAT ORDER FOR CP AND SOA, THEN TAKEN TO ICU10 WHERE THIS RN GAVE BEDSIDE REPORT TO Grey BAIG RN.
[2019-02-14] MEDS ORDERED: LIDOCAINE 1% INJ 20 ML 20 ML VIAL ONE (13:47)
[2019-02-14] MEDS ORDERED: HEParin (CATH LAB) 2,000 ML IV ONE (13:47)
--- NOTE | 2019-02-14 14:01 | Occ Therapy Progress Note ---
Therapy Progress Note pt transferred to ICU. new OT order will be required secondary to decline in medical status. d/c OT at this time. please place new orders when medically stable. SILVIO LAMAS OT Feb 14, 2019 14:01
--- NOTE | 2019-02-14 14:16 | NUR ---
1215 PT TO ICU 10 VIA BED ACCOMPANIED BY Jerardo MACKEY RN AND INSTRUCTIONAL SUPPORT TECHNICIAN. PT ON 02 AT 6 LITERS PER NC AND BP NOTED TO BE HYPOTENSIVE AND TACHYCARDIC. ASSESSMENT COMPLETE SEE FLOW SHEET, PT VOICES NO C/O OF PAIN OR CHEST PAIN, CALL LIGHT AND OTHER PERSONAL ITEMS WITHIN REACH, FAMILY AT BEDSIDE WILL MONITOR.
[2019-02-14] MEDS ORDERED: TENECTEPLASE 5 MG in SYRINGE-IVPB 0 SYRINGE, WATER (STERILE) FOR INJECTION 4 ML IV ONE ×6 (15:00)
[2019-02-14] MEDS ORDERED: NS IV SCH ×2 (15:15)
[2019-02-14] MEDS ORDERED: TENECTEPLASE IV SCH ×2 (15:15)
--- NOTE | 2019-02-14 15:37 | Consultation-Cardiology ---
HPI-Cardiology Cardiology Consultation: Date of Consultation 02/14/19 Date of Admission Attending Physician Blanca Lopez MD Admitting Physician Edil Silvestre MD Consulting Physician Tyron CHRISTIANSON MD HPI: Time Seen by a Provider: 14:30 Chief Complaint: respiratory distress this is a 58-year-old gentleman who was admitted for respiratory distress and possible alcohol withdrawal and was intubated. He was subsequently extubated and transferred to inpatient rehabilitation. Today he was noted to have significant respiratory distress. CT chest showed large saddle embolus with bilateral high clot burden. Patient is tachycardiac with sinus tachycardia of 125 BPM. Systolic blood pressure of 80-90 mmHg. Stat echocardiogram showed hyperdynamic LV function with RV dysfunction and dilatation. Review of Systems-Cardiology All Other Systems Reviewed Negative Unless Noted: Yes [id number] Hx Patient Social History Alcohol Use: Regular Use Recreational Drug Use: No Smoking Status: Former Smoker 2nd Hand Smoke Exposure: No Recent Foreign Travel: No Recent Infectious Disease Expo: No Past Medical History PMH As described under Assessment. Allergies and Home Medications Allergies Coded Allergies: No Known Drug Allergies (Unverified , 02/03/19) Home Medications Acetaminophen 500 Mg Tablet, 1,000 MG PO Q4H PRN for PAIN-MILD, (Reported) Amlodipine Besylate/Benazepril 1 Each Capsule, 1 CAP PO DAILY, (Reported) Aspirin 81 Mg Tablet.dr, 81 MG PO DAILY PRN for DISCOMFORT, (Reported) Atorvastatin Calcium 40 Mg Tablet, 40 MG PO DAILY, (Reported) Carvedilol 3.125 Mg Tablet, 3.125 MG PO BID, (Reported) Citalopram Hydrobromide 40 Mg Tablet, 20 MG PO DAILY, (Reported) TAKES 1/2 (40MG) TABLET Cyanocobalamin (Vitamin B-12) 1,000 Mcg Tablet, 1,000 MCG PO DAILY, (Reported) Dapagliflozin Propanediol 10 Mg Tablet, 10 MG PO DAILY, (Reported) LAST FILLED #30 11-22-18 Fish Oil/Dha/Epa 1 Each Capsule, 1,200 MG PO DAILY, (Reported) Fluticasone Propionate 9.9 Ml [place].susp, 2 SPRAY NS DAILY PRN for ALLERGIES, (Reported) Hydrochlorothiazide 25 Mg Tablet, 25 MG PO DAILY, (Reported) Ibuprofen 200 Mg Tablet, 400-600 MG PO TID PRN for PAIN-MILD, (Reported) Insulin Aspart 300 Units/3 Ml Solution, 12 UNITS SC 0800,1200, (Reported) Insulin Aspart 300 Units/3 Ml Solution, 16 UNITS SQ 1800, (Reported) Insulin Glargine,Hum.rec.anlog 100 Unit/1 Ml Insuln.pen, 55 UNITS SC DAILY, (Reported) Levocetirizine Dihydrochloride 5 Mg Tablet, 5 MG PO DAILY, (Reported) Metformin HCl 1,000 Mg Tablet, 1,000 MG PO BID, (Reported) Montelukast Sodium 10 Mg Tablet, 10 MG PO HS, (Reported) Naphazoline HCl/Pheniramine 15 Ml Drops, 1-2 DROPS OU TID PRN for ALLERGIES, (Reported) Omeprazole 20 Mg Capsule.dr, 20 MG PO DAILY, (Reported) Potassium Gluconate 99 Mg Tablet, 99 MG PO DAILY PRN for CRAMPS, (Reported) Sodium Chloride 30 Ml [place], 1-2 SPRAYS NS TID PRN for CONGESTION, (Reported) Tadalafil 20 Mg Tablet, 20 MG PO DAILY PRN for ED, (Reported) Patient Home Medication List Home Medication List Reviewed: Yes Physical Exam-Cardiology Physical Exam Vital Signs/I&O 02/14/19 02/14/19 02/14/19 02/14/19 06:40 08:00 08:00 11:12 Temp 36.9 Pulse 104 Resp 20 B/P (MAP) 143/80 Pulse Ox 89 89 93 80 O2 Delivery Nasal Cannula Nasal Cannula Nasal Cannula Room Air O2 Flow Rate 2.00 3.00 2.00 02/14/19 02/14/19 02/14/19 02/14/19 11:20 11:30 12:28 12:30 Temp 35.0 35.49237 Pulse 126 131 133 Resp 26 28 16 B/P (MAP) 80/64 72/38 (49) Pulse Ox 80 92 96 O2 Delivery Room Air Nasal Cannula Nasal Cannula O2 Flow Rate 4.00 6.00 02/14/19 02/14/19 02/14/19 02/14/19 12:34 13:00 14:00 15:00 Pulse 133 137 130 130 Resp 14 31 26 B/P (MAP) 96/57 (70) 101/64 (76) 97/70 (79) Pulse Ox 94 94 93 O2 Delivery Nasal Cannula Nasal Cannula Nasal Cannula O2 Flow Rate 6.00 6.00 6.00 9/9/19 00:00 Intake Total 900 ml Output Total 4250 ml Balance -3350 ml Capillary Refill : Less Than 3 Seconds Constitutional: appears stated age, AAO x 3, apparent distress, well-developed, well-nourished HEENT: PERRL; No discharge; hearing is well preserved, oral hygience is good; No ulceration, No xanthelasmas are seen Neck: No carotid bruit; carotid pulses are 2 + bilaterally Respiratory: accessory muscle use, respiratory distress, chest is bilaterally symmetric, other (Course breathing.) Cardiovascular: regular rate-rhythm, tachycardia, S1 and S2 Gastrointestinal: soft, audible bowel sounds; No spleenomegaly Rectal: deferred Extremities: normal range of motion, non-tender, normal inspection; No clubbing, No cyanosis; no lower extremity edema bilateral; No significant edema Neurologic/Psychiatric: no motor/sensory deficits, alert, normal mood/affect, oriented x 3, power is 5/5 both on sides Skin: normal color; No rash, No ulcerations Data Review Labs Laboratory Tests 02/13/19 16:14: Glucometer 233H 02/13/19 20:34: Glucometer 269H 02/14/19 04:35: White Blood Count 6.2, Red Blood Count 4.21L, Hemoglobin 12.5L, Hematocrit 37L, Mean Corpuscular Volume 87, Mean Corpuscular Hemoglobin 30, Mean Corpuscular Hemoglobin Concent 34, Red Cell Distribution Width 14.9H, Platelet Count 208, Mean Platelet Volume 10.6H, Neutrophils (%) (Auto) 71, Lymphocytes (%) (Auto) 15, Monocytes (%) (Auto) 12, Eosinophils (%) (Auto) 2, Basophils (%) (Auto) 1, Neutrophils # (Auto) 4.4, Lymphocytes # (Auto) 0.9L, Monocytes # (Auto) 0.7, Eosinophils # (Auto) 0.1, Basophils # (Auto) 0.0, Sodium Level 136, Potassium Level 3.2L, Chloride Level 100, Carbon Dioxide Level 24, Anion Gap 12, Blood Urea Nitrogen 7, Creatinine 0.59L, Estimat Glomerular Filtration Rate > 60, BUN/Creatinine Ratio 12, Glucose Level 202H, Calcium Level 8.0L, Phosphorus Level 3.2, Magnesium Level 1.7 02/14/19 10:47: Glucometer 270H 02/14/19 13:01: Glucometer 326H Microbiology 02/03/19 Blood Culture - Final, Complete No growth 02/06/19 Mycobacterial Culture - Preliminary, Resulted 02/04/19 Urine Culture - Final, Complete NO GROWTH ECG Impression ECG Initial ECG Rhythm: S.Tach A/P-Cardiology Assessment/Admission Diagnosis hemodynamically significant saddle pulmonary embolism with RV dysfunction. Plan the patient has a large saddle pulmonary embolism with hypotension and tachycardia. Hypertension is non-responsive to IV fluids. Echocardiogram shows RV dilatation and dysfunction and demonstrates increased RV pressure and volume overload. Patient received full dose enoxaparin at 1229 p.m. No absolute contraindications to thrombolytic therapy. I discussed at length with the patient, the and mother and discussed with his options. These options were also discussed by Dr. Hernandez. The consensus is to perform catheter directed thrombolysis. I discussed at length with the patient and family and took an informed consent. There is a 0.5 percent chance of intracranial hemorrhage with catheter directed thrombolysis even though we gave significantly less dose as compared to systemic thrombolytics. Also there is a 1 percent chance of significant damage to the heart, peripheral vessels, pulmonary artery which can result in as well. The patient and family understand the risk and will like to proceed. Critically ill patient. Thank you for your consultation. Please call me if you have any questions. Grey Christianson MD, FACP, FACC, FSCAI, FHRS, CCDS Interventional Cardiology Cardiac Electrophysiology Vascular Medicine and Endovascular Interventions Clinical Quality Measures DVT/VTE Risk/Contraindication: Risk Factor Score Per Nursin RFS Level Per Nursing on Admit: 2=Moderate Tyron CHRISTIANSON MD Feb 14, 2019 15:37
[2019-02-14] MEDS ORDERED: fentaNYL INJECTION 100 MCG/2 ML AMP ONE (15:38)
[2019-02-14] MEDS ORDERED: MIDAZOLAM 5 MG/5 ML (VERSED) VIAL ONE (15:38)
--- NOTE | 2019-02-14 15:38 | Cardiac Procedure Note-CS/ASA ---
Pre-Procedure Note Pre-Op Procedure Note H&P Reviewed The H&P was reviewed, patient examined and no changes noted. Date H&P Reviewed: Feb 14, 2019 Time H&P Reviewed: 15:38 Conscious Sedation Pre-Proced Time 15:38 ASA Score 3 For ASA 3 and 4: Consider anesthesia and medical clearance. Also, for patients with a history of failed moderate sedation consider anesthesia. Airway Lungs Heart ASA score ASA 1: a normal healthy patient ASA 2: a patient with a mild systemic disease (mid diabetes, controlled hypertension, obesity ASA 3: a patient with a severe systemic disease that limits activity (angina, COPD, prior Myocardial infarction) ASA 4: a patient with an incapacitating disease that is a constant threat to life (CHF, renal failure) ASA 5: a moribund patient not expected to survive 24 hrs. (ruptured aneurysm) ASA 6: a declared brain- patient whose organs are being harvested. For emergent operations, add the letter E after the classification Mallampati Classification Grade 1 Sedation Plan Analgesia, Amnesia, Plan communicated to team members, Discussed options with patient/fam, Discussed risks with patient/fam The patient is an appropriate candidate to undergo the planned procedure, sedation, and anesthesia. The patient immediately re-assessed prior to indication. Tyron OSULLIVAN MD Feb 14, 2019 15:38
--- NOTE | 2019-02-14 15:45 | NUR ---
1530 PT TO MANAGER DIVISION VIA BED ACCOMPANIED BY MANAGER DIVISION STAFF.
--- NOTE | 2019-02-14 15:49 | Pulmonary Progress Note ---
Subjective Time Seen by a Provider: 13:00 Subjective/Events-last exam Pt developed acute respiratory distress on the 4th floor. Family at bedside discussed in detail treatment options from No TPA to benefits and risk of TPA. Sepsis Event Evaluation Height, Weight, BMI Height: 6'." Weight: 254lbs. 4.8oz. 115.750502bz; 35.6 BMI Method:Stated Exam Exam Vital Signs Date Time Temp Pulse Resp B/P (MAP) Pulse Ox O2 Delivery O2 Flow Rate FiO2 02/14/19 15:00 130 26 97/70 (79) 93 Nasal Cannula 6.00 02/14/19 14:00 130 31 101/64 (76) 94 Nasal Cannula 6.00 02/14/19 13:00 137 14 96/57 (70) 94 Nasal Cannula 6.00 02/14/19 12:34 133 02/14/19 12:30 133 16 72/38 (49) 96 Nasal Cannula 6.00 02/14/19 12:28 35.24165 02/14/19 11:30 131 28 92 Nasal Cannula 4.00 02/14/19 11:20 35.0 126 26 80/64 80 Room Air 02/14/19 11:12 80 Room Air 02/14/19 08:00 36.9 104 20 143/80 93 Nasal Cannula 2.00 02/14/19 08:00 89 Nasal Cannula 3.00 02/14/19 06:40 89 Nasal Cannula 2.00 02/14/19 02:50 90 Nasal Cannula 2.00 02/14/19 00:24 36.71749 99 21 136/83 (100) 93 Nasal Cannula 2.00 02/13/19 23:00 90 Nasal Cannula 2.00 02/13/19 19:30 37.32349 108 136/71 (92) 93 Nasal Cannula 2.00 02/13/19 18:55 88 Room Air 02/13/19 16:14 37.70910 106 20 144/73 (96) 91 Room Air I & O 02/14/19 06:59 Intake Total 1880 ml Output Total 5450 ml Balance -3570 ml Height & Weight Height: 6'1.00" Weight: 254lbs. 4.8oz. 115.941832rj; 35.6 BMI Method:Stated General Appearance: Moderate Distress HEENT: PERRL/EOMI, Normal ENT Inspection, Pharynx Normal Neck: Full Range of Motion, Non Tender, Supple Respiratory: Chest Non Tender, Lungs Clear, Normal Breath Sounds, No Accessory Muscle Use, No Respiratory Distress Cardiovascular: Tachycardia Capillary Refill: Less Than 3 Seconds Peripheral Pulses: 2+ Dorsalis Pedis (R), 2+ Left Dors-Pedis (L), 2+ Radial Pulses (R), 2+ Radial Pulses (L) Gastrointestinal: normal bowel sounds, non tender, soft Extremity: Normal Capillary Refill, Normal Inspection, No Pedal Edema Neurologic/Psychiatric: Alert, Disoriented Skin: Normal Color, Warm/Dry Lymphatic: No Adenopathy Results Lab Laboratory Tests 02/13/19 05:20 02/14/19 04:35 Assessment/Plan Assessment/Plan Acute respiratory distress -Pt was transferred to ICU after hypoxia, and hypotension was noted -Pt was found to have acute PE bilateral PE/saddle PE -I called and spoke with Dr. Christianson and he agrees with pt needing intravascular TPA -PT received 100mg of Lovenox sub Q after CT scan showed large bilateral PE -D/C Lovenox -Start Hep gtt no bolus starting at 2100 s/p Pneumonia - probably aspiration present at admission Debility/weakness -PT/OT Alcohol withdrawal -Banana bag -Continue to monitor Nocturnal hypoxia - weakness -Will follow as out pt for sleep testing. HTN -Secondary to withdrawal. -Monitor Metabolic lactic acidosis- improving Critical Care: Critically Ill Patient Time spent with patient (mins): 60 RAFAEL SOUSA DO Feb 14, 2019 15:49
[2019-02-14] MEDS ORDERED: HEParin 1000 UNIT/ML (10ML VIAL) FOR BOLUS IV SCH ×2 (16:45→21:00)
--- NOTE | 2019-02-14 17:12 | Coronary Angiography & PCI ---
Peripheral Angio & Interv DATE OF SERVICE: 02/14/19 PRIMARY PHYSICIAN: Edil Silvestre MD REFERRING PHYSICIAN: Dr. Sean Hernandez PERFORMING INTERVENTIONALIST: Dr. Grey Christianson INDICATION: acute saddle pulmonary embolism causing hemodynamic compromise. PREOPERATIVE INDICATION: acute saddle pulmonary embolism causing hemodynamic compromise. POSTOPERATIVE DIAGNOSIS: successful catheter directed thrombolysis. HISTORY: this is a 58-year-old gentleman who was recently admitted for respiratory distress and alcohol withdrawal.. He was intubated and ventilated. He was subsequently extubated and transferred to the rehabilitation unit. he was found to be in respiratory distress this morning. CT angiography showed large saddle pulmonary embolism with significant bilateral thrombus burden. Tachycardia with hypotension, not responsive to IV fluids. Echocardiogram showed an enlarged RV with RV systolic dysfunction and evidence of RV pressure and volume overload. Informed consent was taken from the patient and family including the risk of , intracranial bleeding, damage to the heart, pulmonary vessels and peripheral veins. Pulmonary angiography and catheter directed thrombolysis is recommended. PROCEDURE PERFORMED: 1. Right heart catheterization. 2. RV angiography. 3. Selective right pulmonary angiography. 4. Main pulmonary artery angiography. 5. Selective left pulmonary angiography. 6. Catheter directed right pulmonary artery thrombolysis. 7. Catheter directed left pulmonary artery thrombolysis. 8. Right femoral venogram with follow-through to the IVC. SPECIMENS: None. ANESTHESIA: Conscious sedation. BLOOD LOSS: 20 mL. COMPLICATIONS: None. CONTRAST USED: 145 ml. FLUOROSCOPY DOSE: 969 Mgy. FLUOROSCOPY TIME: 20.3 minutes. ANTICOAGULATION: none DESCRIPTION OF PROCEDURE: The patient was brought to the laboratory engineer after informed consent was taken. All the risks and complications were explained in detail. The patient was draped and prepped in the usual sterile fashion. FINDINGS: saddle pulmonary embolism was noted in the main pulmonary artery. Moderate clot burden in the right pulmonary artery. Significant clot burden in the left pulmonary artery. Enlarged RV on angiogram. No significant DVT noted in the right femoral vein or the infrarenal IVC. PCWP 11 mmHg, PA pressure 45/31 mmHg, PA pressure in the left pulmonary artery 55/27 mmHg, RV pressure 57/10 mmHg. RVEDP 24 mmHg, Right atrial mean pressure 36 mmHg. RECOMMENDATIONS: catheter directed thrombolytic therapy is recommended. INTERVENTIONAL DETAILS: Access was gained in the right femoral vein with a 7 Syriac sheath. We first went in with a pigtail catheter but were not able to get into the main pulmonary artery. Therefore we went in with a [place] catheter again we were not able to make the turn from the RV into the main pulmonary artery. We used a short whisper wire as well as a long BMW wire but were still not able to get the pigtail catheter into the main pulmonary artery. He finally took the baby J-wir e and were able to direct the pigtail catheter into the right pulmonary artery. Selective pulmonary angiogram was done. 5 mg of local TNKase was given over 5 seconds. Post-angiogram was done. The pigtail catheter was then directed towards the left pulmonary artery and selective left pulmonary angiogram was done. 5 mg of local TNKase was given. The pigtail catheter was then pulled back into the main pulmonary artery and the main pulmonary angiogram was done. PA pressures were noted including wedge pressure. Pullback was done to the RV. RV angiogram was done. Pullback was done to the right atrium and right atrial pressure was measured. We then took a right femoral venous angiogram with follow-through to the IVC. blood pressure in the beginning of the procedure were his systolic 80 mmHg. At the end of the procedure systolic blood pressure was 98 mmHg. Mynx closure of the RFV. CONCLUSION: hemodynamically significant large saddle pulmonary embolism, successful catheter directed thrombolytics. Transfer to the ICU. Grey Christianson MD, FACP, FACC, [facility] Vascular Medicine and Endovascular Interventions Tyron CHRISTIANSON MD Feb 14, 2019 17:12
[2019-02-14] MEDS ORDERED: PATIENT MAY USE OWN MEDS, ALL PO SCH (17:15)
[2019-02-14] MEDS: NS IV 1000 ML 1,000 ML IV SCH (18:28)
--- NOTE | 2019-02-14 19:14 | NUR ---
1725 PT BACK FROM [employer] REPORT GIVEN TO Saleem EUGENE DIRECTOR. REPORT GIVEN TO THIS HEAD TENNIS PROFESSIONAL AT APPROXIMATELY 1745. SEE INTERVENTION
--- NOTE | 2019-02-14 19:45 | Progress Note ---
Subjective Subjective/Events-last exam Called to room by RT for hypotension and shortness of breath. Patient was having mild chest pain and having a hard time breathing. Upon review patient was high risk for PE and STAT CTA was ordered. Called by Radiology and bilateral PE's with saddle embolism was found, patient was transferred to ICU and consult to Dr Hernandez was made. Review of Systems Pulmonary: Dyspnea, Cough Cardiovascular: Chest Pain; No: Palpitations Gastrointestinal: No: Nausea, Vomiting, Abdominal Pain, Diarrhea, Constipation Neurological: Weakness Objective Exam Last Set of Vital Signs Vital Signs Date Time Temp Pulse Resp B/P (MAP) Pulse Ox O2 Delivery O2 Flow Rate FiO2 02/14/19 19:00 125 18 139/78 95 Nasal Cannula 6.00 02/14/19 12:28 35.54422 02/10/19 08:35 30 Capillary Refill : Less Than 3 Seconds I&O Intake and Output 02/14/19 00:00 Intake Total 1680 ml Output Total 5200 ml Balance -3520 ml Intake Oral 1480 ml IV Total 200 ml Output Urine Total 5200 ml # Bowel Movements 2 General: Alert, Oriented X3, Cooperative, Moderate Distress Lungs: Clear to Auscultation, Normal Air Movement, Other (increased work of breathing with minimal activity.) Heart: No Murmurs, Other (tachycardic rate) Abdomen: Normal Bowel Sounds, Soft, No Tenderness, No Masses Extremities: No Edema, No Tenderness/Swelling Skin: No Rashes, No Breakdown Neuro: Normal Speech, Sensation Intact, Cranial Nerves 3-12 NL Results/Procedures Lab Laboratory Tests 02/13/19 20:34: Glucometer 269H 02/14/19 04:35: White Blood Count 6.2, Red Blood Count 4.21L, Hemoglobin 12.5L, Hematocrit 37L, Mean Corpuscular Volume 87, Mean Corpuscular Hemoglobin 30, Mean Corpuscular Hemoglobin Concent 34, Red Cell Distribution Width 14.9H, Platelet Count 208, Mean Platelet Volume 10.6H, Neutrophils (%) (Auto) 71, Lymphocytes (%) (Auto) 15, Monocytes (%) (Auto) 12, Eosinophils (%) (Auto) 2, Basophils (%) (Auto) 1, Neutrophils # (Auto) 4.4, Lymphocytes # (Auto) 0.9L, Monocytes # (Auto) 0.7, Eosinophils # (Auto) 0.1, Basophils # (Auto) 0.0, Sodium Level 136, Potassium Level 3.2L, Chloride Level 100, Carbon Dioxide Level 24, Anion Gap 12, Blood Urea Nitrogen 7, Creatinine 0.59L, Estimat Glomerular Filtration Rate > 60, BUN/Creatinine Ratio 12, Glucose Level 202H, Calcium Level 8.0L, Phosphorus Level 3.2, Magnesium Level 1.7 02/14/19 10:47: Glucometer 270H 02/14/19 13:01: Glucometer 326H Microbiology 02/03/19 Blood Culture - Final, Complete No growth 02/06/19 Mycobacterial Culture - Preliminary, Resulted 02/04/19 Urine Culture - Final, Complete NO GROWTH Assessment/Plan Assessment/Plan (1) Bilateral pulmonary embolism Status: Acute Assessment & Plan: 02/14: TX lovenox BID, Consult Ewa Hernandez pending (2) Acute hypotension Status: Acute Assessment & Plan: 02/14: Likely 2/2 to saddle PE, Echo pending (3) Hypercapnic respiratory failure Status: Acute Assessment & Plan: Management per Dr. Hernandez. Improving pH and PCO2, remains intubated. On nebulizer treatments as well as acetylcysteine. 02/09 plan for extubation later this am if possible. 02/10 currently on vapotherm with 35% FiO2, weaning as tolerated. 02/11 stable on nasal cannula 02/14: worsening respiratory distress, STAT CTA for PE protocol, Lovenox BID TX dosing ordered Qualifiers: Qualified Codes: J96.02 - Acute respiratory failure with hypercapnia (4) Pneumonia Status: Acute Assessment & Plan: Zosyn and vancomycin, bronch with staph 02/09 continue Zosyn 02/10 abx narrowed to ceftriaxone Qualifiers: (5) Fatty liver Status: Acute Assessment & Plan: Noted on abdominal CT. Suspect alcoholic hepatitis. (6) Thrombocytopenia Status: Resolved Assessment & Plan: Improving, concerning given his fatty liver and alcoholism. Monitor closely. (7) Hyperammonemia Status: Resolved Assessment & Plan: Started on lactulose, improved. (8) Elevated LFTs Status: Resolved Assessment & Plan: Suspect alcoholic hepatitis/fatty liver. Hep panel and HIV neg. (9) Hematuria Status: Acute Assessment & Plan: Urine culture negative, no obstructing stone or noted renal abnormality (2 mm nonobstructing left stone) on CT, may need cystoscopy in future if persists. (10) Ileus Status: Resolved Assessment & Plan: CT concerning for ileus vs SBO. NG in place, having adequate stool output per nursing. On IV reglan. 02/10 tolerating diet this am, monitor (11) Altered mental status Status: Resolved Assessment & Plan: Was requiring a lot of sedation for signs of alcohol withdrawal, is improving slowly. Minimize lines and sedating meds. (12) DVT prophylaxis Status: Acute Assessment & Plan: On TX dosing for PE Clinical Quality Measures DVT/VTE Risk/Contraindication: Risk Factor Score Per Nursin RFS Level Per Nursing on Admit: 2=Moderate ALBANIA MERAZ MD Feb 14, 2019 19:45
[2019-02-14] MEDS: PANTOPRAZOLE 40 MG (PROTONIX) TAB PO SCH ×2 (21:16→21:26)
[2019-02-14] MEDS: HEParin DRIP 25000 UNIT/500ML 500 ML IV SCH ×2 (21:36→22:44)
[2019-02-14] MEDS ORDERED: ENOXAPARIN 300 MG/3 ML (LOVENOX) MULTI-DOSE VIAL SQ SCH (22:00)
[2019-02-15] VITALS (27 sets, daily range): BP systolic 87–193; BP diastolic 58–118
[2019-02-15] MEDS: LORazepam 0.5 MG (ATIVAN) TABLET PO PRN (00:29)
[2019-02-15] MEDS: RT-ALBUTEROL/IPRATROPIUM 3 ML (DUONEB) VIAL INH SCH ×6 (02:04→21:51)
[2019-02-15 03:19] LABS: BASOPHILS % (AUTO) 1 % (0-10); EOSINOPHILS # (AUTO) 0.1 10^3/uL (0.0-0.3); EOSINOPHILS % (AUTO) 1 % (0-10); HEMATOCRIT 36 % (40-54); HEMOGLOBIN 12.3 G/DL (13.3-17.7); LYMPHOCYTES # (AUTO) 0.7 X 10^3 (1.0-4.0); LYMPHOCYTES % (AUTO) 8 % (12-44); MEAN CORPUSCULAR HEMOGLOBIN 30 PG (25-34); MEAN CORPUSCULAR HGB CONC 34 G/DL (32-36); MEAN CORPUSCULAR VOLUME 88 FL (80-99); MEAN PLATELET VOLUME 10.7 FL (7.4-10.4); MONOCYTES # (AUTO) 0.7 X 10^3 (0.0-1.0); MONOCYTES % (AUTO) 8 % (0-12); NEUTROPHILS # (AUTO) 7.3 X 10^3 (1.8-7.8); NEUTROPHILS % (AUTO) 83 % (42-75); PLATELET COUNT 226 10^3/uL (130-400); RED CELL DISTRIBUTION WIDTH 15.5 % (10.0-14.5); WHITE BLOOD COUNT 8.9 10^3/uL (4.3-11.0)
--- NOTE | 2019-02-15 03:37 | Pulmonary Progress Note ---
BETTY MC,MED STUDENT 02/15/19 0336: Subjective Date Seen by a Provider: Feb 15, 2019 Time Seen by a Provider: 03:30 Subjective/Events-last exam Patient says that he is feeling better following his heart cartheter and TKA treatment by Dr. Christianson. He denies headache, fever chills, nausea, vomiting, changes in vision, changes in hearing, chest pain, SOB, cough and pain in his extremities Sepsis Event Evaluation Height, Weight, BMI Height: 6'1.00" Weight: 254lbs. 4.8oz. 115.287967ic; 35.6 BMI Method:Stated Exam Exam Vital Signs Date Time Temp Pulse Resp B/P (MAP) Pulse Ox O2 Delivery O2 Flow Rate FiO2 02/15/19 03:00 114 22 118/75 91 Nasal Cannula 5.00 02/15/19 02:04 94 Nasal Cannula 5.00 02/15/19 02:00 118 32 142/107 95 Nasal Cannula 5.00 02/15/19 01:00 124 02/15/19 01:00 123 18 127/84 91 Nasal Cannula 5.00 02/15/19 00:01 Nasal Cannula 5.00 02/15/19 00:00 124 30 125/78 93 Nasal Cannula 5.00 02/14/19 23:55 36.6 02/14/19 23:00 125 30 123/81 93 Nasal Cannula 5.00 02/14/19 22:17 93 Nasal Cannula 5.00 02/14/19 22:00 128 30 136/86 94 Nasal Cannula 5.00 02/14/19 21:42 37.0 02/14/19 21:30 Nasal Cannula 5.00 02/14/19 21:00 133 21 139/75 92 Nasal Cannula 6.00 02/14/19 20:00 Nasal Cannula 6.00 02/14/19 20:00 127 22 125/80 93 Nasal Cannula 6.00 02/14/19 19:00 125 18 139/78 95 Nasal Cannula 6.00 02/14/19 19:00 120 02/14/19 18:46 88 Room Air 02/14/19 18:00 114 19 116/78 98 Nasal Cannula 6.00 02/14/19 15:00 130 26 97/70 (79) 93 Nasal Cannula 6.00 02/14/19 14:00 130 31 101/64 (76) 94 Nasal Cannula 6.00 02/14/19 13:00 137 14 96/57 (70) 94 Nasal Cannula 6.00 02/14/19 12:34 133 02/14/19 12:30 133 16 72/38 (49) 96 Nasal Cannula 6.00 02/14/19 12:28 35.15338 02/14/19 11:30 131 28 92 Nasal Cannula 4.00 02/14/19 11:20 35.0 126 26 80/64 80 Room Air 02/14/19 11:12 80 Room Air 02/14/19 08:00 36.9 104 20 143/80 93 Nasal Cannula 2.00 02/14/19 08:00 89 Nasal Cannula 3.00 02/14/19 06:40 89 Nasal Cannula 2.00 I & O 02/15/19 07:00 Intake Total 2670 ml Output Total 3250 ml Balance -580 ml Height & Weight Height: 6'1.00" Weight: 254lbs. 4.8oz. 115.470132kv; 35.6 BMI Method:Stated General Appearance: No Apparent Distress Neck: Full Range of Motion, Non Tender, Supple Respiratory: Chest Non Tender, Lungs Clear, Normal Breath Sounds, No Accessory Muscle Use, No Respiratory Distress Cardiovascular: No Edema, No Gallop, No JVD, No Murmur, Tachycardia Capillary Refill: Less Than 3 Seconds Peripheral Pulses: 2+ Dorsalis Pedis (R), 2+ Left Dors-Pedis (L), 2+ Radial Pulses (R), 2+ Radial Pulses (L) Gastrointestinal: normal bowel sounds, non tender, soft Extremity: Normal Capillary Refill, Normal Inspection, Non Tender, No Calf Tenderness, Pedal Edema (R > L ) Neurologic/Psychiatric: Alert, Disoriented Skin: Normal Color, Warm/Dry Lymphatic: No Adenopathy Results Lab Laboratory Tests 02/13/19 05:20 02/14/19 04:35 02/15/19 03:10 Assessment/Plan Assessment/Plan Acute respiratory distress -Pt was transferred to ICU after hypoxia, and hypotension was noted -Pt was found to have acute PE bilateral PE/saddle PE -Cardiology consult -PT received 100mg of Lovenox sub Q after CT scan showed large bilateral PE - consider heart catheter with TPA -D/C Lovenox -Start Hep gtt no bolus starting at 2100 Pneumonia - Likely d/t aspiration Weakness - PT/OT noctural dyspnea - outpatient follow up with sleep study Alcohol withdraw - Banana bag - continue to monitor HTN - secondary to withdraw - continue to monitor Metabolic lactic acidosis- improving -Repeat LA Elevated LFTs and ammonia level -monitor Hypokalemia, hypomag -replace RAFAEL HERNANDEZ DO 02/15/19 0440: Subjective Time Seen by a Provider: 04:35 Subjective/Events-last exam Pt feels better compared to yesterday. Exam Exam General Appearance: No Apparent Distress HEENT: PERRL/EOMI, Pharynx Normal Neck: Full Range of Motion, Non Tender, Supple Respiratory: Chest Non Tender, Lungs Clear, Normal Breath Sounds, No Accessory Muscle Use, No Respiratory Distress Cardiovascular: No Edema, No Gallop, No JVD, No Murmur Peripheral Pulses: 2+ Dorsalis Pedis (R), 2+ Left Dors-Pedis (L), 2+ Radial Pulses (R), 2+ Radial Pulses (L) Gastrointestinal: normal bowel sounds, non tender, soft Extremity: Normal Capillary Refill, Normal Inspection, Non Tender, No Calf Tenderness, Pedal Edema (R > L ) Neurologic/Psychiatric: Alert, Disoriented Skin: Normal Color, Warm/Dry Lymphatic: No Adenopathy Assessment/Plan Assessment/Plan Acute bilateral large PE s/p intravascular TPA -change Heparin to Eliquis today -PT will need 6 months of anticoagulation Sinus tachycardia -Cardiology following -Will increase coreg and monitor -Continue IVF for now s/p aspiration Pneumonia Weakness - PT/OT noctural dyspnea - outpatient follow up with sleep study s/p Alcohol withdraw - Banana bag - continue to monitor HTN - continue to monitor Metabolic lactic acidosis- improving Elevated LFTs and ammonia level -monitor Hypokalemia, hypomag -replace Supervisory-Addendum Brief Verification & Attestation Participated in pt care: history Personally performed: exam, history Care discussed with: Medical Student Procedures: n/a Verification and Attestation of Medical Student E/M Service A medical student performed and documented this service in my presence. I reviewed and verified all information documented by the medical student and made modifications to such information, when appropriate. I personally performed the physical exam and medical decision making. Rafael Hernandez, Feb 15, 2019,06:12 BETTY MC,MED STUDENT Feb 15, 2019 03:36 RAFAEL HERNANDEZ DO Feb 15, 2019 04:40
[2019-02-15 03:39] LABS: BUN/CREATININE RATIO 10; CALCIUM 7.8 MG/DL (8.5-10.1); CARBON DIOXIDE 20 MMOL/L (21-32); CHLORIDE 100 MMOL/L (98-107); CREATININE SERUM 0.67 MG/DL (0.60-1.30); GFR ESTIMATED > 60; GLUCOSE 215 MG/DL (70-105); MAGNESIUM 1.6 MG/DL (1.6-2.4); PHOSPHORUS 3.1 MG/DL (2.3-4.7); POTASSIUM 3.7 MMOL/L (3.6-5.0); SODIUM 134 MMOL/L (135-145)
[2019-02-15] MEDS: NS IV 1000 ML 1,000 ML IV SCH ×2 (04:08→06:11)
[2019-02-15] MEDS: KCL 20 MEQ TAB (K-DUR) PO SCH (04:08)
[2019-02-15] MEDS: POTASSIUM CL 10MEQ/50ML IVPB 50 ML IV SCH (04:08)
[2019-02-15] MEDS: MAGNESIUM 1 GM/100 ML IVPB 100 ML IV SCH ×3 (04:08→05:12)
[2019-02-15] MEDS: CATHETER FLUSH 10 ML SYR IV SCH ×3 (05:12→22:29)
[2019-02-15] MEDS: inSUlin ASPART (NovoLOG) 1 UNIT/0.01 ML (CHARGE PER UNIT) SQ SCH ×4 (05:15→21:34)
[2019-02-15] MEDS: PANTOPRAZOLE 40 MG (PROTONIX) TAB PO SCH ×2 (08:03→20:30)
[2019-02-15] MEDS: amLODIPine 10 MG (NORVASC) TAB PO SCH (08:03)
[2019-02-15] MEDS: HYDROCHLOROTHIAZIDE 25 MG (HCTZ) TAB PO SCH (08:03)
[2019-02-15] MEDS: CARVEDILOL 12.5 MG (COREG) TABLET PO SCH ×2 (08:03→20:30)
[2019-02-15] MEDS: lisINopril 40 MG (PRINIVIL) TABLET PO SCH (08:04)
--- NOTE | 2019-02-15 09:31 | Cardiology Progress Note ---
Cardiology SOAP Progress Note Subjective: Significant improvement in the clinical situation. However the patient is still mildly short of breath. Objective: I&O/Vital Signs 02/14/19 02/14/19 02/14/19 02/15/19 22:17 23:00 23:55 00:00 Temp 36.6 Pulse 125 124 Resp 30 30 B/P (MAP) 123/81 125/78 Pulse Ox 93 93 93 O2 Delivery Nasal Cannula Nasal Cannula Nasal Cannula O2 Flow Rate 5.00 5.00 5.00 02/15/19 02/15/19 02/15/19 02/15/19 00:01 01:00 01:00 02:00 Pulse 123 124 118 Resp 18 32 B/P (MAP) 127/84 142/107 Pulse Ox 91 95 O2 Delivery Nasal Cannula Nasal Cannula Nasal Cannula O2 Flow Rate 5.00 5.00 5.00 02/15/19 02/15/19 02/15/19 02/15/19 02:04 03:00 04:00 04:03 Temp 36.8 Pulse 114 117 Resp 22 22 B/P (MAP) 118/75 114/77 Pulse Ox 94 91 88 O2 Delivery Nasal Cannula Nasal Cannula Nasal Cannula O2 Flow Rate 5.00 5.00 5.00 02/15/19 02/15/19 02/15/19 02/15/19 04:05 05:00 06:00 06:40 Pulse 111 109 Resp 36 22 B/P (MAP) 132/79 121/72 Pulse Ox 95 96 96 O2 Delivery Nasal Cannula Nasal Cannula Nasal Cannula Nasal Cannula O2 Flow Rate 5.00 5.00 5.00 5.00 02/15/19 02/15/19 02/15/19 02/15/19 07:00 08:00 08:04 08:15 Temp 37.2 Pulse 105 105 105 Resp 19 14 18 B/P (MAP) 107/80 118/78 118/78 Pulse Ox 89 90 93 O2 Delivery Nasal Cannula Nasal Cannula Nasal Cannula Nasal Cannula O2 Flow Rate 5.00 5.00 5.00 5.00 02/15/19 02/15/19 09:00 09:31 Pulse 106 B/P (MAP) 113/73 O2 Delivery Nasal Cannula O2 Flow Rate 5.00 02/15/19 00:00 Intake Total 2320 ml Output Total 2050 ml Balance 270 ml Weight (Pounds): 250 Weight (Ounces): 4.8 Weight (Calculated Kilograms): 113.684150 Constitutional: appears stated age, AAO x 3, well-developed, well-nourished Respiratory: chest is bilaterally symmetric, lungs clear to auscultation, other (Course breathing.) Cardiovascular: regular rate-rhythm, tachycardia, S1 and S2 Gastrointestional: soft, audible bowel sounds; No spleenomegaly Extremities: normal range of motion, non-tender, normal inspection; No clubbing, No cyanosis; no lower extremity edema bilateral; No significant edema Neurologic/Psychiatric: no motor/sensory deficits, alert, normal mood/affect, oriented x 3, power is 5/5 both on sides Skin: normal color; No rash, No ulcerations Results/Procedures: Labs Laboratory Tests 02/14/19 10:47: Glucometer 270H 02/14/19 13:01: Glucometer 326H 02/14/19 21:28: Glucometer 218H 02/14/19 22:00: Activated Partial Thromboplast Time 33 02/15/19 03:10: White Blood Count 8.9, Red Blood Count 4.10L, Hemoglobin 12.3L, Hematocrit 36L, Mean Corpuscular Volume 88, Mean Corpuscular Hemoglobin 30, Mean Corpuscular Hemoglobin Concent 34, Red Cell Distribution Width 15.5H, Platelet Count 226, Mean Platelet Volume 10.7H, Neutrophils (%) (Auto) 83H, Lymphocytes (%) (Auto) 8L, Monocytes (%) (Auto) 8, Eosinophils (%) (Auto) 1, Basophils (%) (Auto) 1, Neutrophils # (Auto) 7.3, Lymphocytes # (Auto) 0.7L, Monocytes # (Auto) 0.7, Eosinophils # (Auto) 0.1, Basophils # (Auto) 0.0, Activated Partial Thromboplast Time 50H, Sodium Level 134L, Potassium Level 3.7, Chloride Level 100, Carbon Dioxide Level 20L, Anion Gap 14, Blood Urea Nitrogen 7, Creatinine 0.67, Estimat Glomerular Filtration Rate > 60, BUN/Creatinine Ratio 10, Glucose Level 215H, Calcium Level 7.8L, Phosphorus Level 3.1, Magnesium Level 1.6 Microbiology 02/03/19 Blood Culture - Final, Complete No growth 02/06/19 Mycobacterial Culture - Preliminary, Resulted 02/04/19 Urine Culture - Final, Complete NO GROWTH A/P: Assessment/Dx: hemodynamically significant saddle pulmonary embolism with RV dysfunction. Plan: Hemodynamically significant large saddle pulmonary embolism with bilateral high thrombus burden. Catheter directed thrombolytics done yesterday. IV heparin started overnight. Patient has improved significantly. Yesterday systolic blood pressure was 80 mmHg. The systolic blood pressure was 98 mmHg at the end of the procedure. Today on my evaluation the systolic blood pressure is 128 mmHg. Heart rate was 125-130 BPM yesterday. Heart rate during my evaluation after he had been ambulating was 105 BPM. Yesterday his oxygen saturation was 90 percent on 6 L via nasal cannula. Today his oxygen saturation on 5 L was 95 percent. Overall I think his hemodynamics have stabilized and his oxygen requirement has decreased. However he is still critical. Likely changed to Eliquis this morning. Repeat echocardiogram tomorrow to evaluate RV and PA pressure. Discussed with the patient and Dr. Hernandez. Bilateral lower extremity venous ultrasound was negative for DVT. Echocardiogram done 02/14/2019 showed hyperdynamic LV function with dilated RV and decreased RV function. Elevated PA pressure. Thank you for your consultation. Please call me if you have any questions. Grey Christianson MD, FACP, FACC, FSCAI, FHRS, CCDS Interventional Cardiology Cardiac Electrophysiology Vascular Medicine and Endovascular Interventions Tyron CHRISTIANSON MD Feb 15, 2019 09:31
--- NOTE | 2019-02-15 09:44 | Diagnostic Imaging Report ---
EXAMINATION: Chest, 1 view. HISTORY: Shortness of breath. COMPARISON: 02/12/2019. FINDINGS: A left PICC is present with the tip in the superior vena cava. The lungs are clear. No edema. No pneumonia. No pleural effusion. No pneumothorax. The heart is normal in size. IMPRESSION: Clear lungs. Dictated by: Dictated on workstation # [id number]
--- NOTE | 2019-02-15 09:50 | Diagnostic Imaging Report ---
PROCEDURE: US Venous Lower Ext Richy. TECHNIQUE: Multiple real-time grayscale images were obtained over the lower extremities in various projections, bilaterally. Additional duplex Doppler and color Doppler images were also obtained. INDICATION: Leg pain and swelling, pulmonary embolus. There are no prior studies available for comparison. There is a generally good blood flow and compressibility at all levels of the deep venous system. There is no evidence for deep venous thrombosis. IMPRESSION: There is no evidence for deep venous thrombosis of either lower extremity. Dictated by: Dictated on workstation # [id number]
--- NOTE | 2019-02-15 09:53 | Physical Therapy Evaluation ---
PT Evaluation-General Medical Diagnosis Admission Date Feb 03, 2019 at 14:25 Medical Diagnosis: Respiratory failure/bilateral PE's Onset Date: Feb 14, 2019 Therapy Diagnosis Therapy Diagnosis: debility/weakness Height/Weight Height (Feet): 6 Height (Inches): 1.00 Weight (Pounds): 250 Weight (Ounces): 4.8 Precautions Precautions/Isolations: Fall Prevention, Standard Precautions, Pressure Ulcer Weight Bear Status Right Lower Extremity: Right Weight Bearing/Tolerated Left Lower Extremity: Left Weight Bearing/Tolerated Referral Physician: Sean Hernandez DO Reason for Referral: Evaluation/Treatment Medical History Pertinent Medical History: Alcoholism Current History transferred to ICU secondary to decline in respiratory status resulting from bilateral PE's Reviewed History: Yes Social History Home: Single Level Current Living Status: Alone Prior/[facility] Prior Level of Function Therapy Code Descriptions/Definitions Functional Neeses Measure: 0=Not Assessed/NA 4=Minimal Assistance 1=Total Assistance 5=Supervision or Setup 2=Maximal Assistance 6=Modified Neeses 3=Moderate Assistance 7=Complete Neeses Therapy Quality Codes: 6 Independent with activity with or without an assistive device 5 Patient requires set up or clean up by helper. Patient completes activity by themselves 4 Supervision or touching assist (CGA). [place] provide cues , steadying assist 3 The helper provides less than half the effort to complete the activity 2 The helper provides more than half the effort to complete the activity 1 Dependent. The helper does all the effort to complete an activity 7 Patient refused to complete or attempt activity 9 The patient did not perform the activity before the current illness or injury 88 Not attempted due to Medical conditions or safety concerns Functional Abilities and Goals: Independent: Patient completed the activities by him/herself, with or without an assistive device, with no assistance from a helper. Needed Some Help: Patient needed partial assistance from another person to complete activities. Dependent: A helper completed the activities for the patient. Unknown: Not Applicable: Bed Mobility: 7 Transfers (B,C,W/C) (FIM): 7 Gait: 7 Stairs: 7 Indoor Mobility (Ambulation): Independent Stairs: Independent Prior Devices Use: None PT Evaluation-Current Subjective Patient reports he feels much better. Agrees to PT. Pain Numeric Pain Scale: 0-No Pain Location: No Pain Reported Objective Patient Orientation: Normal For Age Problem Solving: Fair Attachments: Oxygen (5L NC), Petersen Catheter, IV ROM/Strength ROM Lower Extremities bilateral LE WFL Strength Lower Extremities bilateral LE 4/5 grossly Integumentary/Posture Integumentary refer to nursing notes Bowel Incontinence: No Bladder Incontinence: Petersen Cath Posture WFL Neuromuscular (Tone, Coordination, Reflexes) grossly intact Sensory Vision: Functional Hearing: Functional Sensation Right Lower Extremit: Intact Sensation Left Lower Extremity: Intact Transfers Therapy Code Descriptions/Definitions Functional Neeses Measure: 0=Not Assessed/NA 4=Minimal Assistance 1=Total Assistance 5=Supervision or Setup 2=Maximal Assistance 6=Modified Neeses 3=Moderate Assistance 7=Complete Neeses Transfers (B, C, W/C) (FIM): 5 Scootin Rollin Supine to/from Sit: 5 Sit to/from Stand: 5 Gait Mode of Locomotion: Walk Anticipated Mode of Locomotion: Walk Gait (FIM): 5 Distance (FIM): 3=150 ft Distance: 200' Gait Level of Assist: 5 Gait Assistive Device: FWW Comments/Gait Description safe gait sequence Balance Sitting Static: Normal Sitting Dynamic: Normal Standing Static: Normal Standing Dynamic: Normal Assessment/Needs 58 y.o. male, will benefit from skilled PT to address functional strength and mobility to improve current LOF to safely return to home at maximum LOF. Rehab Potential: Fair Post Rehab Potential-Barriers: compliance PT Short Term Goals Short Term Goals Time Frame: Feb 16, 2019 Transfers (B,C,W/C) (FIM): 3 Gait (FIM): 1 Gait Distance Comment: 5' Gait Level of Assist: 4 Gait Assistive Device: FWW PT Reversal Print Inspector Goals Reversal Print Inspector Goals PT Reversal Print Inspector Goals Time Frame: Mar 05, 2019 Transfers (B,C,W/C) (FIM): 7 Gait (FIM): 7 Gait distance (FIM): 3=150 ft Distance: 200' Gait Assistive Device: None Stairs (FIM): 7 # of Steps: 12 Stairs Level Of Assist: 7 PT Plan Problem List Problem List: Activity Tolerance, Functional Strength, Safety Treatment/Plan Treatment Plan: Continue Plan of Care Treatment Plan: Bed Mobility, Concurrent Therapy, Education, Functional Activity Marek, Functional Strength, Gait, Safety, Therapeutic Exercise, Transfers Treatment Duration: Mar 05, 2019 Frequency: 6 times per week Estimated Hrs Per Day: .25 hour per day Patient and/or Family Agrees t: Yes Time/GCodes Time In: 830 Time Out: 856 Total Billed Treatment Time: 26 Total Billed Treatment 1 visit EVMod 26 min GREGG DANIELLE PT Feb 15, 2019 09:53
--- NOTE | 2019-02-15 14:32 | Occupational Therapy Eval ---
OT Evaluation-General/PLF Medical Diagnosis Admission Date Feb 03, 2019 at 14:25 Medical Diagnosis: Respiratory failure/bilateral PE's Onset Date: Feb 14, 2019 Therapy Diagnosis Therapy Diagnosis: decreased ADL and functional mobility Height/Weight Height (Feet): 6 Height (Inches): 1.00 Weight (Pounds): 250 Weight (Ounces): 4.8 Precautions Precautions/Isolations: Fall Prevention, Standard Precautions, Pressure Ulcer Safety Interventions: Reorient-PRN Weight Bear Status Weight Bearing Restriction: Weight Bearing/Tolerated Referral Physician: Sean Hernandez DO Referral Reason: Activity Tolerance, Self Care, Evaluation/Treatment, Strengthening/ROM Medical History Pertinent Medical History: Alcoholism Current History Per H&P: "This is a 58-year-old white male clinic patient of Dr. shaffer of [facility] who presented to the [place] ER after syncopal episode. Work-up ensued revealing alcohol withdrawal and respiratory failure with ABG showing pH of 7.1 and CO2 of 90 with CO2 retention. He was emergently intubated moved to [facility] ICU for pulmonary expertise. At this current time mother is at the bedside and she apparently does not know how much alcohol he drinks on a regular basis which seems to be a lifelong addiction issue. We will monitor the situation closely and maintain ventilator." Pt off ventilator and transferred to acute unit. Pt then experienced respiratory failure with bilateral PE's. Now located in ICU. Reviewed History: Yes Social History Home: Multilevel Current Living Status: Spouse (spouse and 2 children within home) Entry Into Home: Stairs With Railing Steps Into Home: 4 Steps Inside Home: 20 Pt lives in multi level home with basement. Pt's bedroom and bathroom on ground level. Pt has tubshower with curtain, grab bars present within shower. Pt lives with spouse and 2 children. ADL-Prior Level of Function Therapy Code Descriptions/Definitions Functional [place] Measure: 0=Not Assessed/NA 4=Minimal Assistance 1=Total Assistance 5=Supervision or Setup 2=Maximal Assistance 6=Modified [place] 3=Moderate Assistance 7=Complete [place] Therapy Quality Codes: 6 Independent with activity with or without an assistive device 5 Patient requires set up or clean up by helper. Patient completes activity by themselves 4 Supervision or touching assist (CGA). [place] provide cues , steadying assist 3 The helper provides less than half the effort to complete the activity 2 The helper provides more than half the effort to complete the activity 1 Dependent. The helper does all the effort to complete an activity 7 Patient refused to complete or attempt activity 9 The patient did not perform the activity before the current illness or injury 88 Not attempted due to Medical conditions or safety concerns Functional Abilities and Goals: Independent: Patient completed the activities by him/herself, with or without an assistive device, with no assistance from a helper. Needed Some Help: Patient needed partial assistance from another person to complete activities. Dependent: A helper completed the activities for the patient. 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 Pt expresses comfort in bed, no pain noted. Pt agreeable to OT evaluation. Pain Numeric Pain Scale: 0-No Pain Location: No Pain Reported Mental Status/Objective Patient Orientation: Person, Place, Time, Situation, Normal For Age Attachments: Petersen Catheter, IV, Oxygen, Telemetry Current Glasses/Contacts: Yes Hearing Aids: No Dentures/Partials: No Hand Dominance: Right Upper Extremity ROM LUE WFL R UE shoulder flexion/ abduction limited to 90* Upper Extremity Coordination WFL Upper Extremity Sensation WFL, no c/o sensation issues Upper Extremity Strength WFL ADL-Treatment Therapy Code Descriptions/Definitions Functional [place] Measure: 0=Not Assessed/NA 4=Minimal Assistance 1=Total Assistance 5=Supervision or Setup 2=Maximal Assistance 6=Modified [place] 3=Moderate Assistance 7=Complete [place] Therapy Quality Codes: 6 Independent with activity with or without an assistive device 5 Patient requires set up or clean up by helper. Patient completes activity by themselves 4 Supervision or touching assist (CGA). [place] provide cues , steadying assist 3 The helper provides less than half the effort to complete the activity 2 The helper provides more than half the effort to complete the activity 1 Dependent. The helper does all the effort to complete an activity 7 Patient refused to complete or attempt activity 9 The patient did not perform the activity before the current illness or injury 88 Not attempted due to Medical conditions or safety concerns Eating (FIM): 5 (s/u for packaging) Grooming (FIM): 5 (s/u for face and hand hygiene) Lower Body Dressing (FIM): 2 (max A socks) Transfers (B, C, W/C) (FIM): 3 (Mod A with bed mobility. SBA sit to stand from EOB. CGA for safety and balance while standing. Pt no c/o dizziness, pt able to ambulate to chair from EOB with good safety and decision making., required cues for walker placement.) Other Treatments Pt's nurse notified of OT evaluation. Pt's mother present at end of session. pt stated he would like to move to chair on this date. Pt completed transfer from EOB to chair. pt good awareness of lines and safety. pt sat in chair, call light in reach and all needs met. Pt left with mother and PERSONAL FINANCIAL REPRESENTATIVE. Nursing notified of session and pt position. Education OT Patient Education: Correct positioning, Energy conservation, Modified ADL techniques, Purpose of tx/functional activities, Rehab process, Safety issues, Transfer techniques, Use of adapted equipment Teaching Recipient: Patient, Family Teaching Methods: Demonstration, Discussion Response to Teaching: Verbalize Understanding, Return Demonstration OT Short Term Goals Short Term Goals Eating(FIM): 7 Grooming(FIM): 6 Transfers (B,C,W/C) (FIM): 5 Toilet/Commode Transfer(FIM): 4 Additional Short Term Goals: 1-Demonstrate ADL Tasks, 2-Verbalize Understanding, 3-ImproveStrength/Marek 1=Demonstrate adherence to instructed precautions during ADL tasks. 2=Patient will verbalize/demonstrate understanding of assistive devices/modifications for ADL. 3=Patient will improve strength/tolerance for activity to enable patient to perform ADL's. OT Windows Systems Architect Goals Skilled Nursing Goals Time Frame: Mar 02, 2019 Eating (FIM): 7 Grooming(FIM): 6 Bathing(FIM): 5 Upper Body Dressing(FIM): 5 Lower Body Dressing(FIM): 5 Toileting(FIM): 5 Transfers (B,C,W/C) (FIM): 5 Toilet/Commode Transfer(FIM): 5 Tub Transfer(FIM): 5 Additional Goals: 1-Demonstrate ADL Tasks, 2-Verbalize Understanding, 3-ImproveStrength/Marek 1=Demonstrate adherence to instructed precautions during ADL tasks. 2=Patient will verbalize/demonstrate understanding of assistive devices/modifications for ADL. 3=Patient will improve strength/tolerance for activity to enable patient to perform ADL's. OT Education/Plan Problem List/Assessment Assessment: Decreased Activ Tolerance, Decreased UE Strength, Impaired Bed Mobility, Impaired I ADL's, Impaired Self-Care Skills, Restricted Funct UE ROM Discharge Recommendations Plan/Recommendations: Continue POC Comment D/c recommendation TBD Treatment Plan/Plan of Care Treatment,Training & Education: Yes Patient would benefit from OT for education, treatment and training to promote independence in ADL's, mobility, safety and/or upper extremity function for ADL's. Plan of Care: ADL Retraining, Caregiver Training, Functional Mobility, Group Exercise/Act as Ind, UE Funct Exercise/Act Treatment Duration: Mar 02, 2019 Frequency: 5 times per week Estimated Hrs Per Day: .25 hour per day Agreement: Yes Rehab Potential: Fair Time/GCodes Start Time: 13:10 Stop Time: 13:30 Total Time Billed (hr/min): 20 Billed Treatment Time 1 COSTA BRANTLEY OTR Feb 15, 2019 14:32
--- NOTE | 2019-02-15 15:37 | Speech Therapy Daily Note ---
Speech Daily Progress Note Subjective Date Seen by Provider: Feb 15, 2019 Time Seen by Provider: 00:15 The patient was sitting up in his chair eating some chelsie and walnuts his mother had brought him. Assessment Assessment Current Status: Good Progress Treatment Plan Continue Plan of Care Speech Short Term Goals Short Term Goals Short Term Goals 1) The patient will tolerate least restrictive diet level without s/s of aspiration at 90% or greater. 2) The patient will utilize compensatory strategies as trained at 90% or greater with minimal verbal cues. Speech Mohs Surgeon/General Dermatologist Goals Custodial Goals The patient will maintain adequate nutrition/hydration via safe effective swallow function. Speech-Plan Patient/Family Goals Patient/Family Goals: The patient plans on returning home upon discharge from the hospital. Treatment Plan Speech Therapy Treatment Plan: Continue Plan of Care The patient is progressing with dysphagia goals. Treatment Duration: Feb 18, 2019 Frequency: 2 times per week Estimated Hrs Per Day: .25 hour per day Rehab Potential: Fair Barriers to Learning: Patient has had a medically complex status, which is resolving Pt/Family Agrees to Plan: Yes Safety Risks/Education Teaching Recipient: Patient, Family Teaching Methods: Demonstration, Discussion Response to Teaching: Verbalize Understanding, Return Demonstration Education Topics Provided: Safety of oral intake. Time Speech Therapy Time In: 12:45 Speech Therapy Time Out: 13:00 Total Billed Time: 15 Billed Treatment Time 1, VIN Chairez Feb 15, 2019 15:37
[2019-02-15] MEDS: HEParin DRIP 25000 UNIT/500ML 500 ML IV SCH (16:03)
--- NOTE | 2019-02-15 18:47 | Progress Note ---
Subjective Subjective/Events-last exam Patient feeling much better this AM. Shortness of breath much improved. Tolerating PO diet. Walked with PT today. Review of Systems Pulmonary: Dyspnea (with activity) Cardiovascular: No: Chest Pain, Palpitations Gastrointestinal: No: Nausea, Vomiting, Abdominal Pain Neurological: Weakness Objective Exam Last Set of Vital Signs Vital Signs Date Time Temp Pulse Resp B/P (MAP) Pulse Ox O2 Delivery O2 Flow Rate FiO2 02/15/19 16:45 Nasal Cannula 5.00 02/15/19 16:15 35.9 101 15 103/70 100 02/10/19 08:35 30 Capillary Refill : Less Than 3 Seconds I&O Intake and Output 02/15/19 00:00 Intake Total 3200 ml Output Total 3250 ml Balance -50 ml Intake Oral 1000 ml IV Total 2200 ml Output Urine Total 3250 ml General: Alert, Oriented X3, Cooperative, No Acute Distress Lungs: Clear to Auscultation, Normal Air Movement Heart: Regular Rate, No Murmurs Abdomen: Normal Bowel Sounds, Soft, No Tenderness, No Masses Extremities: No Edema, No Tenderness/Swelling Neuro: Normal Speech, Strength at 5/5 X4 Ext, Sensation Intact, Cranial Nerves 3-12 NL Results/Procedures Lab Laboratory Tests 02/14/19 21:28: Glucometer 218H 02/14/19 22:00: Activated Partial Thromboplast Time 33 02/15/19 03:10: Activated Partial Thromboplast Time 50H, White Blood Count 8.9, Red Blood Count 4.10L, Hemoglobin 12.3L, Hematocrit 36L, Mean Corpuscular Volume 88, Mean Corpuscular Hemoglobin 30, Mean Corpuscular Hemoglobin Concent 34, Red Cell Distribution Width 15.5H, Platelet Count 226, Mean Platelet Volume 10.7H, Neutrophils (%) (Auto) 83H, Lymphocytes (%) (Auto) 8L, Monocytes (%) (Auto) 8, Eosinophils (%) (Auto) 1, Basophils (%) (Auto) 1, Neutrophils # (Auto) 7.3, Lymphocytes # (Auto) 0.7L, Monocytes # (Auto) 0.7, Eosinophils # (Auto) 0.1, Basophils # (Auto) 0.0, Sodium Level 134L, Potassium Level 3.7, Chloride Level 100, Carbon Dioxide Level 20L, Anion Gap 14, Blood Urea Nitrogen 7, Creatinine 0.67, Estimat Glomerular Filtration Rate > 60, BUN/Creatinine Ratio 10, Glucose Level 215H, Calcium Level 7.8L, Phosphorus Level 3.1, Magnesium Level 1.6 02/15/19 10:10: Activated Partial Thromboplast Time 73H 02/15/19 10:58: Glucometer 268H 02/15/19 15:46: Glucometer 234H 02/15/19 16:30: Activated Partial Thromboplast Time > 200*H Microbiology 02/03/19 Blood Culture - Final, Complete No growth 02/06/19 Mycobacterial Culture - Preliminary, Resulted 02/04/19 Urine Culture - Final, Complete NO GROWTH Assessment/Plan Assessment/Plan (1) Bilateral pulmonary embolism Status: Acute Assessment & Plan: 02/14: TX lovenox BID, Consult Ewa Hernandez pending 02/15: On heparin drip, will likely transition to PO anti coagulation tomorrow, Will need 4-6 months of treatment for provoked PE (2) Physical debility Status: Acute Assessment & Plan: 02/15: Working with PT, will f.u with home needs prior to d/c (3) Acute hypotension Status: Resolved Assessment & Plan: 02/14: Likely 2/2 to saddle PE, Echo pending (4) Hypercapnic respiratory failure Status: Acute Assessment & Plan: Management per Dr. Hernandez. Improving pH and PCO2, remains intubated. On nebulizer treatments as well as acetylcysteine. 02/09 plan for extubation later this am if possible. 02/10 currently on vapotherm with 35% FiO2, weaning as tolerated. 02/11 stable on nasal cannula 02/14: worsening respiratory distress, STAT CTA for PE protocol, Lovenox BID TX dosing ordered 02/15: Stablized, currently on 2L NC, continue to titrate as tolerated Qualifiers: Qualified Codes: J96.02 - Acute respiratory failure with hypercapnia (5) Pneumonia Status: Acute Assessment & Plan: Zosyn and vancomycin, bronch with staph 02/09 continue Zosyn 02/10 abx narrowed to ceftriaxone Qualifiers: (6) Fatty liver Status: Acute Assessment & Plan: Noted on abdominal CT. Suspect alcoholic hepatitis. (7) Thrombocytopenia Status: Resolved Assessment & Plan: Improving, concerning given his fatty liver and alcoholism. Monitor closely. (8) Hyperammonemia Status: Resolved Assessment & Plan: Started on lactulose, improved. (9) Elevated LFTs Status: Resolved Assessment & Plan: Suspect alcoholic hepatitis/fatty liver. Hep panel and HIV neg. (10) Hematuria Status: Acute Assessment & Plan: Urine culture negative, no obstructing stone or noted renal abnormality (2 mm nonobstructing left stone) on CT, may need cystoscopy in future if persists. (11) Ileus Status: Resolved Assessment & Plan: CT concerning for ileus vs SBO. NG in place, having adequate stool output per nursing. On IV reglan. 02/10 tolerating diet this am, monitor (12) Altered mental status Status: Resolved Assessment & Plan: Was requiring a lot of sedation for signs of alcohol withdrawal, is improving slowly. Minimize lines and sedating meds. (13) DVT prophylaxis Status: Acute Assessment & Plan: On TX dosing for PE Clinical Quality Measures DVT/VTE Risk/Contraindication: Risk Factor Score Per Nursin RFS Level Per Nursing on Admit: 2=Moderate ALBANIA MERAZ MD Feb 15, 2019 18:47
[2019-02-15] MEDS: MELATONIN 3 MG TABLET PO SCH (20:30)
[2019-02-15] MEDS: FLUTICASONE NASAL SPRAY (FLONASE) 16 GM BTL NS SCH (20:30)
[2019-02-16] VITALS (11 sets, daily range): BP systolic 92–136; BP diastolic 60–92
[2019-02-16] MEDS: RT-ALBUTEROL/IPRATROPIUM 3 ML (DUONEB) VIAL INH SCH ×6 (02:03→21:57)
[2019-02-16] MEDS: NS IV 1000 ML 1,000 ML IV SCH (03:11)
[2019-02-16 03:18] LABS: BASOPHILS % (AUTO) 0 % (0-10); EOSINOPHILS # (AUTO) 0.1 10^3/uL (0.0-0.3); EOSINOPHILS % (AUTO) 2 % (0-10); HEMATOCRIT 34 % (40-54); HEMOGLOBIN 11.5 G/DL (13.3-17.7); LYMPHOCYTES # (AUTO) 1.2 X 10^3 (1.0-4.0); LYMPHOCYTES % (AUTO) 23 % (12-44); MEAN CORPUSCULAR HEMOGLOBIN 30 PG (25-34); MEAN CORPUSCULAR HGB CONC 34 G/DL (32-36); MEAN CORPUSCULAR VOLUME 88 FL (80-99); MONOCYTES # (AUTO) 0.6 X 10^3 (0.0-1.0); MONOCYTES % (AUTO) 12 % (0-12); NEUTROPHILS # (AUTO) 3.1 X 10^3 (1.8-7.8); NEUTROPHILS % (AUTO) 62 % (42-75); PLATELET COUNT 211 10^3/uL (130-400); RED CELL DISTRIBUTION WIDTH 14.9 % (10.0-14.5)
[2019-02-16 03:39] LABS: BUN/CREATININE RATIO 12; CALCIUM 7.9 MG/DL (8.5-10.1); CARBON DIOXIDE 23 MMOL/L (21-32); CHLORIDE 99 MMOL/L (98-107); CREATININE SERUM 0.66 MG/DL (0.60-1.30); GFR ESTIMATED > 60; GLUCOSE 217 MG/DL (70-105); MAGNESIUM 1.7 MG/DL (1.6-2.4); POTASSIUM 3.7 MMOL/L (3.6-5.0); SODIUM 134 MMOL/L (135-145)
[2019-02-16] MEDS: MAGNESIUM 1 GM/100 ML IVPB 100 ML IV SCH ×3 (03:45→03:54)
[2019-02-16] MEDS: POTASSIUM CL 10MEQ/50ML IVPB 50 ML IV SCH (03:45)
[2019-02-16] MEDS: KCL 20 MEQ TAB (K-DUR) PO SCH (03:46)
--- NOTE | 2019-02-16 04:00 | Pulmonary Progress Note ---
BETTY MC,MED STUDENT 02/16/19 0400: Subjective Date Seen by a Provider: Feb 16, 2019 Time Seen by a Provider: 03:54 Subjective/Events-last exam Patient says that he is feeling better and only complains of a slight headache and a cough, otherwise he denies any nausea, vomiting, SOB, chest pain, stomach pain, numbness and tingling. He has no other complaints at this time Sepsis Event Evaluation Height, Weight, BMI Height: 6'1.00" Weight: 250lbs. 4.8oz. [id number]; 35.6 BMI Method:Stated Exam Exam Vital Signs Date Time Temp Pulse Resp B/P (MAP) Pulse Ox O2 Delivery O2 Flow Rate FiO2 02/16/19 03:19 Nasal Cannula 5.00 02/16/19 03:00 99 16 112/60 96 Nasal Cannula 5.00 02/16/19 02:03 92 Nasal Cannula 4.00 02/16/19 02:00 97 16 104/67 100 Nasal Cannula 5.00 02/16/19 01:00 96 25 106/64 99 Nasal Cannula 5.00 02/16/19 01:00 96 02/16/19 00:00 98 20 92/64 96 Nasal Cannula 5.00 02/16/19 00:00 Nasal Cannula 5.00 02/15/19 23:00 98 18 94/59 97 Nasal Cannula 5.00 02/15/19 22:00 102 25 114/67 100 Room Air 02/15/19 21:49 99 Nasal Cannula 4.00 02/15/19 21:37 36.3 107 16 106/74 100 02/15/19 21:00 104 16 140/77 98 Room Air 02/15/19 20:00 Nasal Cannula 5.00 02/15/19 20:00 107 30 114/75 98 Room Air 02/15/19 19:00 107 28 109/72 100 Nasal Cannula 5.00 02/15/19 19:00 107 02/15/19 18:50 100 Nasal Cannula 4.00 02/15/19 18:00 33 92/67 100 Nasal Cannula 5.00 02/15/19 17:00 107 25 94/85 94 Nasal Cannula 5.00 02/15/19 16:45 Nasal Cannula 5.00 02/15/19 16:15 35.9 101 15 103/70 100 02/15/19 16:00 103/70 100 Nasal Cannula 5.00 02/15/19 15:00 103/62 91 Nasal Cannula 5.00 02/15/19 14:19 93 Nasal Cannula 5.00 02/15/19 14:00 90/74 96 Nasal Cannula 5.00 02/15/19 13:09 103 02/15/19 13:00 101/62 94 Nasal Cannula 5.00 02/15/19 11:51 36.4 105 21 99/58 94 02/15/19 11:00 87/62 95 Nasal Cannula 5.00 02/15/19 10:20 92 Nasal Cannula 5.00 02/15/19 10:00 91/65 92 Nasal Cannula 5.00 02/15/19 09:31 106 02/15/19 09:00 113/73 Nasal Cannula 5.00 02/15/19 08:15 Nasal Cannula 5.00 02/15/19 08:04 37.2 105 18 118/78 93 Nasal Cannula 5.00 02/15/19 08:00 105 14 118/78 90 Nasal Cannula 5.00 02/15/19 07:00 105 19 107/80 89 Nasal Cannula 5.00 02/15/19 06:40 96 Nasal Cannula 5.00 02/15/19 06:00 109 22 121/72 96 Nasal Cannula 5.00 02/15/19 05:00 111 36 132/79 95 Nasal Cannula 5.00 02/15/19 04:05 Nasal Cannula 5.00 02/15/19 04:03 36.8 02/15/19 04:00 117 22 114/77 88 Nasal Cannula 5.00 I & O 02/16/19 07:00 Intake Total 1450 ml Output Total 3500 ml Balance -2050 ml Height & Weight Height: 6'1.00" Weight: 250lbs. 4.8oz. [id number]; 35.6 BMI Method:Stated General Appearance: No Apparent Distress, WD/WN, Obese HEENT: PERRL/EOMI Neck: Full Range of Motion, Non Tender, Supple Respiratory: Chest Non Tender, Lungs Clear, Normal Breath Sounds, No Accessory Muscle Use, No Respiratory Distress Cardiovascular: No Edema, No Gallop, No JVD, No Murmur, Normal Peripheral Pulses, Tachycardia Capillary Refill: Less Than 3 Seconds Peripheral Pulses: 2+ Dorsalis Pedis (R), 2+ Left Dors-Pedis (L), 2+ Radial Pulses (R), 2+ Radial Pulses (L) Gastrointestinal: normal bowel sounds, non tender, soft Extremity: Normal Capillary Refill, Normal Inspection, Calf Tenderness, Pedal Edema (R > L ) Neurologic/Psychiatric: Alert, Oriented x3, No Motor/Sensory Deficits, Normal Mood/Affect, Disoriented Skin: Normal Color, Warm/Dry Lymphatic: No Adenopathy Results Lab Laboratory Tests 02/14/19 04:35 02/15/19 03:10 02/16/19 03:08 Assessment/Plan Assessment/Plan Acute bilateral large PE s/p intravascular TPA -change Heparin to Eliquis today -PT will need 6 months of anticoagulation Sinus tachycardia -Cardiology following -Will increase coreg and monitor -Continue IVF for now - continue Heparin drip DVTs - Doppler of lower extremities= no DVTs were noted - patient said that he had mild calf tenderness this AM = continue to monitor - continue heparin drip - switch to eliquis when patient is transitioned to outpatient status s/p aspiration Pneumonia - CXR - no indication of any infiltrates Weakness - PT/OT noctural dyspnea - outpatient follow up with sleep study - 5L o2 via nasal canula at night s/p Alcohol withdraw - Banana bag - continue to monitor HTN - continue to monitor anemia - likely iatrogenic - monitor IDDM - management per primary hyponatremia - monitor - replace via NS if levels continue to decline Metabolic lactic acidosis- improving RAFAEL HERNANDEZ DO 02/17/19 0709: Subjective Time Seen by a Provider: 07:03 Subjective/Events-last exam Pt is feeling improved. Exam Exam General Appearance: No Apparent Distress, WD/WN, Obese HEENT: PERRL/EOMI Neck: Full Range of Motion, Non Tender, Supple Respiratory: Chest Non Tender, Lungs Clear, Normal Breath Sounds, No Accessory Muscle Use, No Respiratory Distress Cardiovascular: No Edema, No Gallop, No JVD, No Murmur, Normal Peripheral Pulses Assessment/Plan Assessment/Plan Acute bilateral large PE s/p intravascular TPA - Eliquis -PT will need 6 months of anticoagulation Sinus tachycardia -Cardiology following -Will increase coreg and monitor -Continue IVF for now DVT - Doppler of lower extremities= no DVTs were noted - patient said that he had mild calf tenderness this AM = continue to monitor s/p aspiration Pneumonia - CXR - no indication of any infiltrates Weakness - PT/OT nocturnal dyspnea - outpatient follow up with sleep study - 5L o2 via nasal canula at night s/p Alcohol withdraw - Banana bag - continue to monitor HTN - continue to monitor anemia - likely iatrogenic - monitor IDDM - management per primary hyponatremia - monitor - replace via NS if levels continue to decline Metabolic lactic acidosis- improving Supervisory-Addendum Brief Verification & Attestation Participated in pt care: history Personally performed: exam, history Care discussed with: Medical Student Procedures: n/a Verification and Attestation of Medical Student E/M Service A medical student performed and documented this service in my presence. I reviewed and verified all information documented by the medical student and made modifications to such information, when appropriate. I personally performed the physical exam and medical decision making. Rafael Hernandez, Feb 17, 2019,07:10 BETTY MC,MED STUDENT Feb 16, 2019 04:00 RAFAEL HERNANDEZ DO Feb 17, 2019 07:09
[2019-02-16] MEDS: inSUlin ASPART (NovoLOG) 1 UNIT/0.01 ML (CHARGE PER UNIT) SQ SCH ×4 (06:04→21:45)
[2019-02-16] MEDS: CATHETER FLUSH 10 ML SYR IV SCH ×3 (06:13→22:18)
--- NOTE | 2019-02-16 07:12 | Diagnostic Imaging Report ---
PATIENT HISTORY: Dyspnea. TECHNIQUE: Single frontal view of the chest COMPARISON: 02/15/2019 FINDINGS: Lung volumes are mildly low. No focal consolidation is seen. There is no pleural effusion or pneumothorax. The left-sided PICC line tip projects over the SVC, directed to the right. IMPRESSION: Low lung volumes with no focal consolidation seen. Dictated by: Dictated on workstation # [id number]
[2019-02-16] MEDS: lisINopril 40 MG (PRINIVIL) TABLET PO SCH (08:14)
[2019-02-16] MEDS: PANTOPRAZOLE 40 MG (PROTONIX) TAB PO SCH ×2 (08:14→21:45)
[2019-02-16] MEDS: CARVEDILOL 12.5 MG (COREG) TABLET PO SCH ×2 (08:14→21:45)
[2019-02-16] MEDS: FLUTICASONE NASAL SPRAY (FLONASE) 16 GM BTL NS SCH ×2 (08:15→21:46)
[2019-02-16] MEDS: APIXABAN 5 MG (ELIQUIS) TABLET PO SCH ×2 (08:20→21:46)
--- NOTE | 2019-02-16 08:55 | Cardiology Progress Note ---
Cardiology SOAP Progress Note Subjective: Gradual further improvement in shortness of breath. Objective: I&O/Vital Signs 02/16/19 02/16/19 02/16/19 02/16/19 02:00 02:03 03:00 03:19 Pulse 97 99 Resp 16 16 B/P (MAP) 104/67 112/60 Pulse Ox 100 92 96 O2 Delivery Nasal Cannula Nasal Cannula Nasal Cannula Nasal Cannula O2 Flow Rate 5.00 4.00 5.00 5.00 02/16/19 02/16/19 02/16/19 02/16/19 03:56 04:00 05:00 06:00 Temp 36.0 Pulse 98 101 98 Resp 14 20 23 B/P (MAP) 96/70 133/87 120/74 Pulse Ox 98 95 99 O2 Delivery Nasal Cannula Nasal Cannula Nasal Cannula O2 Flow Rate 5.00 5.00 5.00 02/16/19 02/16/19 02/16/19 02/16/19 06:55 06:59 07:00 08:00 Temp 36.0 Pulse 98 101 Resp 24 B/P (MAP) 116/86 Pulse Ox 96 100 O2 Delivery Nasal Cannula Nasal Cannula O2 Flow Rate 4.00 4.00 02/16/19 02/16/19 02/16/19 02/16/19 08:00 08:00 09:00 10:08 Pulse 105 110 Resp 27 32 B/P (MAP) 136/92 Pulse Ox 95 89 O2 Delivery Nasal Cannula Nasal Cannula Nasal Cannula Nasal Cannula O2 Flow Rate 4.00 4.00 4.00 4.00 02/16/19 02/16/19 11:02 12:59 Pulse 102 Pulse Ox 93 O2 Delivery Nasal Cannula O2 Flow Rate 4.00 02/16/19 00:00 Intake Total 990 ml Output Total 2300 ml Balance -1310 ml Weight (Pounds): 250 Weight (Ounces): 5.0 Weight (Calculated Kilograms): 113.998347 Constitutional: appears stated age, AAO x 3, well-developed, well-nourished Respiratory: chest is bilaterally symmetric, lungs clear to auscultation, other (Course breathing.) Cardiovascular: regular rate-rhythm, tachycardia, S1 and S2 Gastrointestional: soft, audible bowel sounds; No spleenomegaly Extremities: normal range of motion, non-tender, normal inspection; No clubbing, No cyanosis; no lower extremity edema bilateral; No significant edema Neurologic/Psychiatric: no motor/sensory deficits, alert, normal mood/affect, oriented x 3, power is 5/5 both on sides Skin: normal color; No rash, No ulcerations Results/Procedures: Labs Laboratory Tests 02/15/19 15:46: Glucometer 234H 02/15/19 16:30: Activated Partial Thromboplast Time > 200*H 02/15/19 20:28: Glucometer 268H 02/15/19 23:47: Activated Partial Thromboplast Time > 200*H 02/16/19 03:08: White Blood Count 5.0, Red Blood Count 3.82L, Hemoglobin 11.5L, Hematocrit 34L, Mean Corpuscular Volume 88, Mean Corpuscular Hemoglobin 30, Mean Corpuscular Hemoglobin Concent 34, Red Cell Distribution Width 14.9H, Platelet Count 211, Mean Platelet Volume 11.0H, Neutrophils (%) (Auto) 62, Lymphocytes (%) (Auto) 23, Monocytes (%) (Auto) 12, Eosinophils (%) (Auto) 2, Basophils (%) (Auto) 0, Neutrophils # (Auto) 3.1, Lymphocytes # (Auto) 1.2, Monocytes # (Auto) 0.6, Eosinophils # (Auto) 0.1, Basophils # (Auto) 0.0, Sodium Level 134L, Potassium Level 3.7, Chloride Level 99, Carbon Dioxide Level 23, Anion Gap 12, Blood Urea Nitrogen 8, Creatinine 0.66, Estimat Glomerular Filtration Rate > 60, BUN/Creatinine Ratio 12, Glucose Level 217H, Calcium Level 7.9L, Phosphorus Level 3.0, Magnesium Level 1.7 02/16/19 11:12: Glucometer 243H 02/16/19 11:35: Activated Partial Thromboplast Time 34 Microbiology 02/03/19 Blood Culture - Final, Complete No growth 02/06/19 Mycobacterial Culture - Preliminary, Resulted 02/04/19 Urine Culture - Final, Complete NO GROWTH A/P: Assessment/Dx: hemodynamically significant saddle pulmonary embolism with RV dysfunction. Plan: Hemodynamically significant large saddle pulmonary embolism with bilateral high thrombus burden. Catheter directed thrombolytics done 02/14/2019. IV heparin discontinued and Eliquis started.. Patient has improved significantly. Normal systolic blood pressure. Heart rate 100 BPM. Oxygen saturation 100 percent on 4 L of oxygen. Patient feels much better. Repeat echocardiogram today. Patient is being transferred to the floor. Bilateral lower extremity venous ultrasound was negative for DVT. Echocardiogram done 02/14/2019 showed hyperdynamic LV function with dilated RV and decreased RV function. Elevated PA pressure. Thank you for your consultation. Please call me if you have any questions. Grey Christianson MD, FACP, FACC, FSCAI, FHRS, CCDS Interventional Cardiology Cardiac Electrophysiology Vascular Medicine and Endovascular Interventions Tyron CHRISTIANSON MD Feb 16, 2019 08:54
[2019-02-16] MEDS ORDERED: APIXABAN 5 MG (ELIQUIS) TABLET PO SCH (09:00)
--- NOTE | 2019-02-16 09:15 | NUR ---
PT TRANSFERRED TO 4TH FLOOR ROOM 406, EVA TERRY ASSUMED CARE OF PT AT THIS TIME.
[2019-02-16] MEDS: TAMSULOSIN 0.4 MG (FLOMAX) CAP PO SCH (11:22)
--- NOTE | 2019-02-16 13:11 | Occupational Ther Daily Note ---
OT Current Status-Daily Note Subjective pt laying in bed upon OT arrival. pt agreed to OT TX session with focus on increasing indep with functional transfers for safe return to home. pt reports not pain. Mental Status/Objective Patient Orientation: Confused Therapy Code Descriptions/Definitions Functional [place] Measure: 0=Not Assessed/NA 4=Minimal Assistance 1=Total Assistance 5=Supervision or Setup 2=Maximal Assistance 6=Modified [place] 3=Moderate Assistance 7=Complete [place] ADL-Treatment Transfers (B, C, W/C) (FIM): 5 (use of RW ) Other Treatment pt perform supine to sit with HOB elevated to approx 40 degrees. while sitting EOB pt perform UE ex. against gravity 20X2 all planes for shoulder and elbow to increase UE Strength/ activity tolerance for daily activities. pt then ambulated 5 ft using RW to recliner chair with SBA. pt sitting in recliner chair, post session, call light within reach, all needs met. NSG aware of pt position. Education OT Patient Education: Energy conservation, Home exercise program, Purpose of tx/functional activities, Safety issues, Transfer techniques Teaching Recipient: Patient Teaching Methods: Demonstration, Discussion Response to Teaching: Verbalize Understanding, Return Demonstration OT Short Term Goals Short Term Goals Eating(FIM): 7 Grooming(FIM): 6 Transfers (B,C,W/C) (FIM): 5 Toilet/Commode Transfer(FIM): 4 Additional Short Term Goals: 1-Demonstrate ADL Tasks, 2-Verbalize Understanding, 3-ImproveStrength/Marek 1=Demonstrate adherence to instructed precautions during ADL tasks. 2=Patient will verbalize/demonstrate understanding of assistive devices/modifications for ADL. 3=Patient will improve strength/tolerance for activity to enable patient to perform ADL's. OT Chcf Goals Chcf Goals Time Frame: Mar 02, 2019 Eating (FIM): 7 Grooming(FIM): 6 Bathing(FIM): 5 Upper Body Dressing(FIM): 5 Lower Body Dressing(FIM): 5 Toileting(FIM): 5 Transfers (B,C,W/C) (FIM): 5 Toilet/Commode Transfer(FIM): 5 Tub Transfer(FIM): 5 Additional Goals: 1-Demonstrate ADL Tasks, 2-Verbalize Understanding, 3- ImproveStrength/Marek 1=Demonstrate adherence to instructed precautions during ADL tasks. 2=Patient will verbalize/demonstrate understanding of assistive devices/ modifications for ADL. 3=Patient will improve strength/tolerance for activity to enable patient to perform ADL's. OT Education/Plan Problem List/Assessment Assessment: Decreased Activ Tolerance, Decreased UE Strength, Impaired I ADL's Discharge Recommendations Plan/Recommendations: Continue POC Treatment Plan/Plan of Care Treatment,Training & Education: Yes Patient would benefit from OT for education, treatment and training to promote independence in ADL's, mobility, safety and/or upper extremity function for ADL's. Plan of Care: ADL Retraining, Caregiver Training, Functional Mobility, Group Exercise/Act as Ind, UE Funct Exercise/Act Treatment Duration: Mar 02, 2019 Frequency: 5 times per week Estimated Hrs Per Day: .25 hour per day Agreement: Yes Rehab Potential: Fair Time/GCodes Start Time: 11:30 Stop Time: 11:55 Billed Treatment Time EX 1 unit, 15 minutes FA 1 unit, 10 minutes SILVIO LAMAS OT Feb 16, 2019 13:11
--- NOTE | 2019-02-16 14:26 | Progress Note ---
Subjective Subjective/Events-last exam Patient feeling much better this AM. Doing IS every 30 mins. Tolerating PO diet and working with PT on ambulation. Denies chest pain, mild shortness of breath with activity Review of Systems Pulmonary: Dyspnea Cardiovascular: No: Chest Pain, Palpitations Gastrointestinal: No: Nausea, Vomiting, Abdominal Pain Neurological: Weakness, Incoordination Objective Exam Last Set of Vital Signs Vital Signs Date Time Temp Pulse Resp B/P (MAP) Pulse Ox O2 Delivery O2 Flow Rate FiO2 02/16/19 12:59 102 02/16/19 12:00 36.8 20 96 Nasal Cannula 4.00 02/10/19 08:35 30 Capillary Refill : Less Than 3 Seconds I&O Intake and Output 02/16/19 00:00 Intake Total 2900 ml Output Total 4400 ml Balance -1500 ml Intake Oral 1700 ml IV Total 1200 ml Output Urine Total 4400 ml # Bowel Movements 1 General: Alert, Oriented X3, Cooperative, Mild Distress (with activity) Lungs: Clear to Auscultation, Normal Air Movement Heart: Regular Rate, No Murmurs Abdomen: Normal Bowel Sounds, Soft, No Tenderness, No Masses Extremities: No Tenderness/Swelling, Other (trace edema) Neuro: Normal Speech, Sensation Intact, Cranial Nerves 3-12 NL Results/Procedures Lab Laboratory Tests 02/15/19 15:46: Glucometer 234H 02/15/19 16:30: Activated Partial Thromboplast Time > 200*H 02/15/19 20:28: Glucometer 268H 02/15/19 23:47: Activated Partial Thromboplast Time > 200*H 02/16/19 03:08: White Blood Count 5.0, Red Blood Count 3.82L, Hemoglobin 11.5L, Hematocrit 34L, Mean Corpuscular Volume 88, Mean Corpuscular Hemoglobin 30, Mean Corpuscular Hemoglobin Concent 34, Red Cell Distribution Width 14.9H, Platelet Count 211, Mean Platelet Volume 11.0H, Neutrophils (%) (Auto) 62, Lymphocytes (%) (Auto) 23, Monocytes (%) (Auto) 12, Eosinophils (%) (Auto) 2, Basophils (%) (Auto) 0, Neutrophils # (Auto) 3.1, Lymphocytes # (Auto) 1.2, Monocytes # (Auto) 0.6, Eosinophils # (Auto) 0.1, Basophils # (Auto) 0.0, Sodium Level 134L, Potassium Level 3.7, Chloride Level 99, Carbon Dioxide Level 23, Anion Gap 12, Blood Urea Nitrogen 8, Creatinine 0.66, Estimat Glomerular Filtration Rate > 60, BUN/Creatinine Ratio 12, Glucose Level 217H, Calcium Level 7.9L, Phosphorus Level 3.0, Magnesium Level 1.7 02/16/19 11:12: Glucometer 243H 02/16/19 11:35: Activated Partial Thromboplast Time 34 Microbiology 02/03/19 Blood Culture - Final, Complete No growth 02/06/19 Mycobacterial Culture - Preliminary, Resulted 02/04/19 Urine Culture - Final, Complete NO GROWTH Assessment/Plan Assessment/Plan (1) Bilateral pulmonary embolism Status: Acute Assessment & Plan: 02/14: TX lovenox BID, Consult Ewa Hernandez pending 02/15: On heparin drip, will likely transition to PO anti coagulation tomorrow, Will need 4-6 months of treatment for provoked PE 02/16: Started on Eliquis today, Will continue to titrate oxygen as tolerated (2) Physical debility Status: Acute Assessment & Plan: 02/15: Working with PT, will f.u with home needs prior to d/c (3) Acute hypotension Status: Resolved Assessment & Plan: 02/14: Likely 2/2 to saddle PE, Echo pending 02/16: Holding BP meds (4) Hypercapnic respiratory failure Status: Acute Assessment & Plan: Management per Dr. Hernandez. Improving pH and PCO2, remains intubated. On nebulizer treatments as well as acetylcysteine. 02/09 plan for extubation later this am if possible. 02/10 currently on vapotherm with 35% FiO2, weaning as tolerated. 02/11 stable on nasal cannula 02/14: worsening respiratory distress, STAT CTA for PE protocol, Lovenox BID TX dosing ordered 02/15: Stablized, currently on 2L NC, continue to titrate as tolerated Qualifiers: Qualified Codes: J96.02 - Acute respiratory failure with hypercapnia (5) Pneumonia Status: Acute Assessment & Plan: Zosyn and vancomycin, bronch with staph 02/09 continue Zosyn 02/10 abx narrowed to ceftriaxone Qualifiers: (6) Fatty liver Status: Acute Assessment & Plan: Noted on abdominal CT. Suspect alcoholic hepatitis. (7) Thrombocytopenia Status: Resolved Assessment & Plan: Improving, concerning given his fatty liver and alcoholism. Monitor closely. (8) Hyperammonemia Status: Resolved Assessment & Plan: Started on lactulose, improved. (9) Elevated LFTs Status: Resolved Assessment & Plan: Suspect alcoholic hepatitis/fatty liver. Hep panel and HIV neg. (10) Hematuria Status: Acute Assessment & Plan: Urine culture negative, no obstructing stone or noted renal abnormality (2 mm nonobstructing left stone) on CT, may need cystoscopy in future if persists. (11) Ileus Status: Resolved Assessment & Plan: CT concerning for ileus vs SBO. NG in place, having adequate stool output per nursing. On IV reglan. 02/10 tolerating diet this am, monitor (12) Altered mental status Status: Resolved Assessment & Plan: Was requiring a lot of sedation for signs of alcohol withdrawal, is improving slowly. Minimize lines and sedating meds. (13) DVT prophylaxis Status: Acute Assessment & Plan: Eliquis for treatment of PE Clinical Quality Measures DVT/VTE Risk/Contraindication: Risk Factor Score Per Nursin RFS Level Per Nursing on Admit: 2=Moderate ALBANIA MERAZ MD Feb 16, 2019 14:26
--- NOTE | 2019-02-16 15:04 | Physical Therapy Daily Note ---
PT Daily Note-Current Subjective Patient in bed pre tx, agrees to PT, has no complaints of pain. Appearance Patient in recliner post tx with nurse call, phone, tray, all needs met. Mental Status Patient Orientation: Person, Place, Situation Attachments: Oxygen 4L of O2 nasal canula Transfers Therapy Code Descriptions/Definitions Functional [place] Measure: 0=Not Assessed/NA 4=Minimal Assistance 1=Total Assistance 5=Supervision or Setup 2=Maximal Assistance 6=Modified [place] 3=Moderate Assistance 7=Complete [place] Therapy Quality Codes: 6 Independent with activity with or without an assistive device 5 Patient requires set up or clean up by helper. Patient completes activity by themselves 4 Supervision or touching assist (CGA). [place] provide cues , steadying assist 3 The helper provides less than half the effort to complete the activity 2 The helper provides more than half the effort to complete the activity 1 Dependent. The helper does all the effort to complete an activity 7 Patient refused to complete or attempt activity 9 The patient did not perform the activity before the current illness or injury 88 Not attempted due to Medical conditions or safety concerns Transfers (B, C, W/C) (FIM): 5 Scootin Rollin Supine to/from Sit: 5 Sit to/from Stand: 5 Bed to/from Chair: 5 Weight Bearing Right Lower Extremity: Right Weight Bearing/Tolerated Left Lower Extremity: Left Weight Bearing/Tolerated Gait Training Gait (FIM): 5 Distance: 400' Gait Level of Assist: 5 Gait Persons Needed: 1 Gait Assistive Device: FWW slow but steady ambulation, some SOB, cues for purse lip breathing Exercises Seated Therapy Exercises: Ankle pumps, Long arc quads Seated Reps: 15 Treatments bed mobility and transfers, ambulation, LE exercise Assessment Current Status: Fair Progress improving endurance PT Short Term Goals Short Term Goals Time Frame: Feb 16, 2019 Transfers (B,C,W/C) (FIM): 5 Gait (FIM): 1 Gait Distance Comment: 5' Gait Level of Assist: 4 Gait Assistive Device: FWW PT Cable Stretcher And Tester Goals [facility] Goals PT Cable Stretcher And Tester Goals Time Frame: Mar 05, 2019 Transfers (B,C,W/C) (FIM): 7 Gait (FIM): 7 Gait distance (FIM): 3=150 ft Distance: 200' Gait Assistive Device: None Stairs (FIM): 7 # of Steps: 12 Stairs Level Of Assist: 7 PT Plan Problem List Problem List: Activity Tolerance, Functional Strength, Safety, Balance, Gait, Transfer Treatment/Plan Treatment Plan: Continue Plan of Care Treatment Plan: Bed Mobility, Concurrent Therapy, Education, Functional Activity Marek, Functional Strength, Gait, Safety, Therapeutic Exercise, Transfers Treatment Duration: Mar 05, 2019 Frequency: 6 times per week Estimated Hrs Per Day: .25 hour per day Patient and/or Family Agrees t: Yes Safety Risks/Education Patient Education: Gait Training, Transfer Techniques, Correct Positioning, Safety Issues Teaching Recipient: Patient Teaching Methods: Demonstration, Discussion Response to Teaching: Reinforcement Needed Time/GCodes Time In: 1445 Time Out: 1459 Total Billed Treatment Time: 14 Total Billed Treatment 1 visit GT 14' VANIA GREEN PT Feb 16, 2019 15:04
[2019-02-16] MEDS: MELATONIN 3 MG TABLET PO SCH (21:46)
[2019-02-17 00:05] VITALS: BP 109/76
[2019-02-17] MEDS: RT-ALBUTEROL/IPRATROPIUM 3 ML (DUONEB) VIAL INH SCH ×4 (01:56→14:24)
[2019-02-17 04:05] VITALS: BP 116/70
[2019-02-17 04:48] LABS: BASOPHILS % (AUTO) 0 % (0-10); EOSINOPHILS # (AUTO) 0.1 10^3/uL (0.0-0.3); EOSINOPHILS % (AUTO) 2 % (0-10); HEMATOCRIT 34 % (40-54); HEMOGLOBIN 11.5 G/DL (13.3-17.7); LYMPHOCYTES # (AUTO) 1.1 X 10^3 (1.0-4.0); LYMPHOCYTES % (AUTO) 28 % (12-44); MEAN CORPUSCULAR HEMOGLOBIN 30 PG (25-34); MEAN CORPUSCULAR HGB CONC 34 G/DL (32-36); MEAN CORPUSCULAR VOLUME 89 FL (80-99); MEAN PLATELET VOLUME 10.7 FL (7.4-10.4); MONOCYTES # (AUTO) 0.6 X 10^3 (0.0-1.0); MONOCYTES % (AUTO) 16 % (0-12); NEUTROPHILS # (AUTO) 2.1 X 10^3 (1.8-7.8); NEUTROPHILS % (AUTO) 55 % (42-75); PLATELET COUNT 233 10^3/uL (130-400); RED CELL DISTRIBUTION WIDTH 15.1 % (10.0-14.5); WHITE BLOOD COUNT 3.9 10^3/uL (4.3-11.0)
[2019-02-17 05:06] LABS: BUN/CREATININE RATIO 11; CALCIUM 8.2 MG/DL (8.5-10.1); CARBON DIOXIDE 22 MMOL/L (21-32); CHLORIDE 103 MMOL/L (98-107); CREATININE SERUM 0.66 MG/DL (0.60-1.30); GFR ESTIMATED > 60; GLUCOSE 186 MG/DL (70-105); MAGNESIUM 1.6 MG/DL (1.6-2.4); PHOSPHORUS 3.9 MG/DL (2.3-4.7); POTASSIUM 3.6 MMOL/L (3.6-5.0); SODIUM 137 MMOL/L (135-145)
[2019-02-17] MEDS: inSUlin ASPART (NovoLOG) 1 UNIT/0.01 ML (CHARGE PER UNIT) SQ SCH ×3 (06:21→16:20)
[2019-02-17] MEDS: CATHETER FLUSH 10 ML SYR IV SCH ×2 (06:33→13:28)
--- NOTE | 2019-02-17 07:12 | Pulmonary Progress Note ---
Subjective Time Seen by a Provider: 07:12 Subjective/Events-last exam Pt is doing better. Currently on NC. Sepsis Event Evaluation Height, Weight, BMI Height: 6'1.00" Weight: 250lbs. 9.0oz. [id number]; 35.6 BMI Method:Stated Exam Exam Vital Signs Date Time Temp Pulse Resp B/P (MAP) Pulse Ox O2 Delivery O2 Flow Rate FiO2 02/17/19 06:18 96 Nasal Cannula 6.00 02/17/19 04:05 36.2 107 18 116/70 94 Nasal Cannula 6.00 02/17/19 01:56 84 Nasal Cannula 4.00 02/17/19 01:09 102 02/17/19 00:05 37.5 102 20 109/76 91 Nasal Cannula 4.00 02/16/19 21:57 75 Room Air 02/16/19 20:32 36.6 111 20 114/80 95 Nasal Cannula 4.00 02/16/19 20:00 Nasal Cannula 4.00 02/16/19 19:01 93 Nasal Cannula 4.00 02/16/19 19:00 108 02/16/19 16:33 36.9 107 20 97/63 91 Nasal Cannula 4.00 02/16/19 14:39 92 Nasal Cannula 4.00 02/16/19 12:59 102 02/16/19 12:00 36.8 101 20 96 Nasal Cannula 4.00 02/16/19 11:02 93 Nasal Cannula 4.00 02/16/19 10:08 Nasal Cannula 4.00 02/16/19 09:00 110 32 89 Nasal Cannula 4.00 02/16/19 08:00 Nasal Cannula 4.00 02/16/19 08:00 105 27 136/92 95 Nasal Cannula 4.00 02/16/19 08:00 36.0 I & O 02/17/19 07:00 Intake Total 3618 ml Output Total 2150 ml Balance 1468 ml Height & Weight Height: 6'1.00" Weight: 250lbs. 9.0oz. 113.640648jc; 35.6 BMI Method:Stated General Appearance: No Apparent Distress, WD/WN, Obese HEENT: PERRL/EOMI Neck: Full Range of Motion, Non Tender, Supple Respiratory: Chest Non Tender, Lungs Clear, Normal Breath Sounds, No Accessory Muscle Use, No Respiratory Distress Cardiovascular: No Edema, No Gallop, No JVD, No Murmur, Normal Peripheral Pulses Capillary Refill: Less Than 3 Seconds Peripheral Pulses: 2+ Dorsalis Pedis (R), 2+ Left Dors-Pedis (L), 2+ Radial Pulses (R), 2+ Radial Pulses (L) Gastrointestinal: normal bowel sounds, non tender, soft Extremity: Normal Capillary Refill, Normal Inspection, Calf Tenderness, Pedal Edema (R > L ) Neurologic/Psychiatric: Alert, Oriented x3, No Motor/Sensory Deficits, Normal M ood/Affect, Disoriented Skin: Normal Color, Warm/Dry Lymphatic: No Adenopathy Results Lab Laboratory Tests 02/16/19 03:08 02/17/19 04:25 Assessment/Plan Assessment/Plan Acute bilateral provoked large PE s/p intravascular TPA - Eliquis -PT will needs 6 months of anticoagulation -Will do ambulatory desat test and d/c 02 if possible -Check BNP -D/C IVF Sinus tachycardia -Cardiology following -Will increase coreg and monitor -Continue IVF for now DVT - Doppler of lower extremities= no DVTs were noted - patient said that he had mild calf tenderness this AM = continue to monitor s/p aspiration Pneumonia - CXR - no indication of any infiltrates Weakness - PT/OT nocturnal dyspnea - outpatient follow up with sleep study s/p Alcohol withdraw - continue to monitor HTN - continue to monitor anemia - likely iatrogenic - monitor IDDM - management per primary hyponatremia - monitor - replace via NS if levels continue to decline Metabolic lactic acidosis- improving RAFAEL SOUSA DO Feb 17, 2019 07:12
[2019-02-17 08:00] VITALS: BP 115/77
[2019-02-17] MEDS: lisINopril 40 MG (PRINIVIL) TABLET PO SCH (08:47)
[2019-02-17] MEDS: CARVEDILOL 12.5 MG (COREG) TABLET PO SCH (08:47)
[2019-02-17] MEDS: TAMSULOSIN 0.4 MG (FLOMAX) CAP PO SCH (08:47)
[2019-02-17] MEDS: PANTOPRAZOLE 40 MG (PROTONIX) TAB PO SCH (08:47)
[2019-02-17] MEDS: FLUTICASONE NASAL SPRAY (FLONASE) 16 GM BTL NS SCH (08:48)
[2019-02-17] MEDS: APIXABAN 5 MG (ELIQUIS) TABLET PO SCH (08:48)
--- NOTE | 2019-02-17 09:19 | Physical Therapy Daily Note ---
PT Daily Note-Current Subjective Patient agrees to PT. He reports he may go home today. RN confirms. Pain Numeric Pain Scale: 0-No Pain Location: No Pain Reported Mental Status Patient Orientation: Normal For Age Attachments: Oxygen (3L O2 NC) Transfers Therapy Code Descriptions/Definitions Functional [place] Measure: 0=Not Assessed/NA 4=Minimal Assistance 1=Total Assistance 5=Supervision or Setup 2=Maximal Assistance 6=Modified [place] 3=Moderate Assistance 7=Complete [place] Therapy Quality Codes: 6 Independent with activity with or without an assistive device 5 Patient requires set up or clean up by helper. Patient completes activity by themselves 4 Supervision or touching assist (CGA). [place] provide cues , steadying assist 3 The helper provides less than half the effort to complete the activity 2 The helper provides more than half the effort to complete the activity 1 Dependent. The helper does all the effort to complete an activity 7 Patient refused to complete or attempt activity 9 The patient did not perform the activity before the current illness or injury 88 Not attempted due to Medical conditions or safety concerns Transfers (B, C, W/C) (FIM): 6 Scootin Sit to/from Stand: 6 Weight Bearing Right Lower Extremity: Right Weight Bearing/Tolerated Left Lower Extremity: Left Weight Bearing/Tolerated Gait Training Gait (FIM): 6 Distance (FIM): 3=150 ft Distance: 500' Gait Level of Assist: 6 Gait Assistive Device: FWW safe and functional with no deviation with FWW use/PT for O2 tank only Assessment Patient has slight SOA with activity, however, recovers very quickly. PT to continue until dismissal. PT Short Term Goals Short Term Goals Time Frame: Feb 16, 2019 Transfers (B,C,W/C) (FIM): 5 Gait (FIM): 1 Gait Distance Comment: 5' Gait Level of Assist: 4 Gait Assistive Device: FWW PT Nursing Home Goals Nursing Home Goals PT Nursing Home Goals Time Frame: Mar 05, 2019 Transfers (B,C,W/C) (FIM): 7 Gait (FIM): 7 Gait distance (FIM): 3=150 ft Distance: 200' Gait Assistive Device: None Stairs (FIM): 7 # of Steps: 12 Stairs Level Of Assist: 7 PT Plan Treatment/Plan Treatment Plan: Continue Plan of Care Treatment Plan: Bed Mobility, Concurrent Therapy, Education, Functional Activity Marek, Functional Strength, Gait, Safety, Therapeutic Exercise, Transfers Treatment Duration: Mar 05, 2019 Frequency: 6 times per week Estimated Hrs Per Day: .25 hour per day Patient and/or Family Agrees t: Yes Time/GCodes Time In: 905 Time Out: 916 Total Billed Treatment Time: 11 Total Billed Treatment 1 visit FA 11 min GREGG DANIELLE PT Feb 17, 2019 09:19
--- NOTE | 2019-02-17 10:40 | Discharge Summary ---
Diagnosis/Chief Complaint Date of Admission Feb 03, 2019 at 14:25 Date of Discharge 02/17/2019 Admission Diagnosis Admission Diagnosis See problem list Discharge Diagnosis See Below Problems/Diagnosis: (1) Bilateral pulmonary embolism Assessment & Plan: 02/14: TX lovenox BID, Consult Ewa Hernandez pending 02/15: On heparin drip, will likely transition to PO anti coagulation tomorrow, Will need 4-6 months of treatment for provoked PE 02/16: Started on Eliquis today, Will continue to titrate oxygen as tolerated 02/17: Scripts sent for loading dose and then daily dose, home with new oxygen requirement, would suspect short term use of a few months Status: Acute (2) Physical debility Assessment & Plan: 02/15: Working with PT, will f.u with home needs prior to d/c 02/17: Script for walker sent, Would benefit from Pulmonary rehab Status: Acute (3) Acute hypotension Assessment & Plan: 02/14: Likely 2/2 to saddle PE, Echo pending 02/16: Holding BP meds 02/17: Held some of patient's BP meds, do not restart until instructed by PCP Status: Resolved Resolution Date/Time: 02/15/19 @ 18:44 (4) Hypercapnic respiratory failure Assessment & Plan: Management per Dr. Hernandez. Improving pH and PCO2, remains intubated. On nebulizer treatments as well as acetylcysteine. 02/09 plan for extubation later this am if possible. 02/10 currently on vapotherm with 35% FiO2, weaning as tolerated. 02/11 stable on nasal cannula 02/14: worsening respiratory distress, STAT CTA for PE protocol, Lovenox BID TX dosing ordered 02/15: Stablized, currently on 2L NC, continue to titrate as tolerated Qualifiers: Qualified Codes: J96.02 - Acute respiratory failure with hypercapnia Status: Acute (5) Pneumonia Assessment & Plan: Zosyn and vancomycin, bronch with staph 02/09 continue Zosyn 02/10 abx narrowed to ceftriaxone 02/17: Completed course of antibiotics while admitted, d/c off antibiotics Qualifiers: Status: Acute (6) Fatty liver Assessment & Plan: Noted on abdominal CT. Suspect alcoholic hepatitis. Status: Acute (7) Thrombocytopenia Assessment & Plan: Improving, concerning given his fatty liver and alcoholism. Monitor closely. Status: Resolved Resolution Date/Time: 02/09/19 @ 14:59 (8) Hyperammonemia Assessment & Plan: Started on lactulose, improved. Status: Resolved Resolution Date/Time: 02/08/19 @ 16:41 (9) Elevated LFTs Assessment & Plan: Suspect alcoholic hepatitis/fatty liver. Hep panel and HIV neg. Status: Resolved Resolution Date/Time: 02/09/19 @ 14:59 (10) Hematuria Assessment & Plan: Urine culture negative, no obstructing stone or noted renal abnormality (2 mm nonobstructing left stone) on CT, may need cystoscopy in future if persists. Status: Acute (11) Ileus Assessment & Plan: CT concerning for ileus vs SBO. NG in place, having adequate stool output per nursing. On IV reglan. 02/10 tolerating diet this am, monitor Status: Resolved Resolution Date/Time: 02/11/19 @ 13:41 (12) Altered mental status Assessment & Plan: Was requiring a lot of sedation for signs of alcohol withdrawal, is improving slowly. Minimize lines and sedating meds. Status: Resolved Resolution Date/Time: 02/14/19 @ 19:49 (13) DVT prophylaxis Assessment & Plan: Eliquis for treatment of PE Status: Acute Discharge Summary-Simple/Stand Procedures - Intra arterial TPA for treatment of bilateral PE Consultations Dr Christianson: Cardiology Dr Hernandez: Pulmonlogy Dr Lawrence: General Surgery Discharge Physical Examination Allergies: Coded Allergies: No Known Drug Allergies (Unverified , 02/03/19) Vitals & I&Os Vital Sign - Last 12Hours Date Time Temp Pulse Resp B/P (MAP) Pulse Ox O2 Delivery O2 Flow Rate FiO2 02/17/19 10:20 96 Nasal Cannula 3.00 02/17/19 08:00 36.2 102 22 115/77 Intake and Output 02/17/19 00:00 Intake Total 1930 ml Output Total 800 ml Balance 1130 ml General Appearance: Alert, Cooperative, No Acute Distress HEENT: Mucous Memb Moist/[place] Respiratory: Clear to Auscultation, Normal Air Movement Cardiovascular: Regular Rate, No Murmurs Abdominal: Normal Bowel Sounds, Soft, No Tenderness, No Masses Extremities: Other (1+ edema bilateral LE) Skin: No Rashes, No Breakdown Neuro: Normal Speech, Sensation Intact, Cranial Nerves 3-12 NL, Other (Gait with walker) Hospital Course Was the Problem List Reviewed?: Yes See final discharge diagnosis. Other pending tests PATIENT WOULD BENEFIT FROM PULMONARY REHAB Discussion & Recommendations 58 YO M that was admitted with altered mental status and minimally responsive. He was intubated upon admission. Patient was treated for PNA and EtOH withdraw. He continued to have respiratory distress after extubation that worsened on 02/15 and then patient was sent for CTA and found to have bilateral PE. Dr Christianson was then consulted for intraarterial TPA administration and patient was maintained on heparin for 2 days. He was then transitioned to oral anticoagulates for treatment of PE. Patient continued to improve and get stronger. He was unable to titrate off oxygen and will have new oxygen script at d/c. He was able to ambulate independently with walker and also got a script for a walker for home. He will have close f.u with his PCP Dr Silvestre. Discharge Condition at discharge stable Instructions to patient/family Please see electronic discharge instructions given to patient. Discharge Medications Reviewed and agree with Discharge Medication list on patient's Discharge Instruction sheet Clinical Quality Measures DVT/VTE Risk/Contraindication: Risk Factor Score Per Nursin RFS Level Per Nursing on Admit: 2=Moderate Copy Copies To 1: SELF,ALBANIA ALARCON MD, MD Feb 17, 2019 10:40
--- NOTE | 2019-02-17 10:57 | Diagnostic Imaging Report ---
Portable erect AP chest at 3:13. Indication: Dyspnea. This exam is less than optimal as ascites taken in shallow inspiration and the patient is rotated. Allowing for these technical factors, the heart is stable in size when compared to the prior exam of 02/16/2019. The lungs remain generally clear although I suspect there is a small amount of atelectasis/infiltrate in both lung bases. The mediastinum is not widened. The osseous structures are intact. The left-sided PICC line is unchanged in position. Impression: Allowing for the shallow degree of inspiration and the rotation of the patient, there does not appear to have been any significant change since the prior exam. No new abnormality has developed. Dictated by: Dictated on workstation # [id number]
[2019-02-17] MEDS ORDERED: APIX5TAB PO ×2 (11:04)
[2019-02-17] MEDS ORDERED: CARV12.53 PO (11:04)
[2019-02-17] MEDS ORDERED: AMLO-167 PO (11:04)
[2019-02-17] MEDS ORDERED: TAMS0.4C98 PO (11:04)
[2019-02-17] MEDS ORDERED: HYDR25TA4 PO (11:04)
--- NOTE | 2019-02-17 11:06 | Discharge Instructions ---
Discharge [facility] Reconcile Patient Problems Problems Reviewed?: Yes Discharge Medications New, Converted or Re-Newed RX: Transmitted to Pharmacy New Medications: Apixaban (Eliquis) 5 Mg Tablet 5 MG PO BID, #60 TAB Apixaban (Eliquis) 5 Mg Tablet 10 MG PO BID for 7 Days, #14 TAB Carvedilol (Carvedilol) 12.5 Mg Tablet 12.5 MG PO BID, #60 TAB Tamsulosin HCl (Flomax) 0.4 Mg Cap 0.4 MG PO DAILY@0900 for 14 Days, #14 CAP Changed Medications: Amlodipine Besylate/Benazepril (Amlodipine-Benazepril 10-40 mg) 1 Each Capsule 1 CAP PO DAILY, #30 CAP (Medication details modified) Do not restart at home until seen by PCP Hydrochlorothiazide (Hydrochlorothiazide) 25 Mg Tablet 25 MG PO DAILY, #30 TAB (Medication details modified) Please hold med until seen by PCP Continued Medications: Acetaminophen (Tylenol Extra Strength) 500 Mg Tablet 1000 MG PO Q4H PRN for PAIN-MILD, TAB Aspirin (Aspirin EC) 81 Mg Tablet.dr 81 MG PO DAILY PRN for DISCOMFORT, TAB Atorvastatin Calcium (Atorvastatin Calcium) 40 Mg Tablet 40 MG PO DAILY, TAB Citalopram Hydrobromide (Citalopram HBr) 40 Mg Tablet 20 MG PO DAILY, TAB TAKES 1/2 (40MG) TABLET Cyanocobalamin (Vitamin B-12) (Vitamin B-12) 1,000 Mcg Tablet 1000 MCG PO DAILY, TAB Dapagliflozin Propanediol (Farxiga) 10 Mg Tablet 10 MG PO DAILY, TAB LAST FILLED #30 11-22-18 Fish Oil/Dha/Epa (Fish Oil 1,200 mg Fish Oil) 1 Each Capsule 1200 MG PO DAILY, CAP Fluticasone Propionate (Flonase Allergy Relief) 9.9 Ml [place].susp 2 SPRAY NS DAILY PRN for ALLERGIES, EACH Insulin Aspart (Novolog Flexpen) 300 Units/3 Ml Solution 12 UNITS SC 0800,1200, EA Insulin Aspart (Novolog Flexpen) 300 Units/3 Ml Solution 16 UNITS SQ 1800, EA Insulin Glargine,Hum.rec.anlog (Basaglar Kwikpen U-100) 100 Unit/1 Ml Insuln.pen 55 UNITS SC DAILY, EA Levocetirizine Dihydrochloride (Levocetirizine Dihydrochloride) 5 Mg Tablet 5 MG PO DAILY, TAB Metformin HCl (Metformin HCl) 1,000 Mg Tablet 1000 MG PO BID, TAB Montelukast Sodium (Montelukast Sodium) 10 Mg Tablet 10 MG PO HS, TAB Naphazoline HCl/Pheniramine (Allergy Eye Drops) 15 Ml Drops 1-2 DROPS OU TID PRN for ALLERGIES, DROPS Omeprazole (Omeprazole) 20 Mg Capsule.dr 20 MG PO DAILY, TAB Sodium Chloride (Saline Nasal [place]) 30 Ml [place] 1-2 SPRAYS NS TID PRN for CONGESTION, SPRAY Discontinued Medications: Carvedilol (Carvedilol) 3.125 Mg Tablet 3.125 MG PO BID, TAB Ibuprofen (Advil) 200 Mg Tablet 400-600 MG PO TID PRN for PAIN-MILD, TAB Potassium Gluconate (Potassium) 99 Mg Tablet 99 MG PO DAILY PRN for CRAMPS, TAB Tadalafil (Tadalafil) 20 Mg Tablet 20 MG PO DAILY PRN for ED, TAB Patient Instructions Goal/Follow Up Appt: You have a f.u with Dr Silvestre on @ 215PM for hospital f.u Patient Instructions: - Make sure that you take your blood thinner Activity & Diet Discharge Diet: ADA Diet, Cardiac Diet Activity as Tolerated: Yes Orders-Post D/C & Referrals Pneu Vac Indicated: Yes Copy Copies To 1: SIDDHATRH SILVESTRE MD, HOLLY R MD Feb 17, 2019 11:06
[2019-02-17 12:00] VITALS: BP 108/74
--- NOTE | 2019-02-17 12:16 | Occupational Ther Daily Note ---
OT Current Status-Daily Note Subjective Pt seen sitting EOB, good dynamic sitting balance. Pt's nurse present. Pt agreeable to OT tx session, pt to d/c on this date. No c/o pain. Mental Status/Objective Patient Orientation: Normal For Age Therapy Code Descriptions/Definitions Functional [place] Measure: 0=Not Assessed/NA 4=Minimal Assistance 1=Total Assistance 5=Supervision or Setup 2=Maximal Assistance 6=Modified [place] 3=Moderate Assistance 7=Complete [place] Pt expressed a bit of confusion, though Ox4. Stated "a lot going through my head." ADL-Treatment Eating (FIM): 7 Other Treatment Pt stated he was able to dress self with minimal assistance on this date. Pt in jeans, t-shirt and socks. Pt stated some difficulty with sock donnning. Pt educated on d/c process with OT services. Pt expressed concerns with remembering questions he has and difficulty time "keeping head clear." pt was educated on memory tactics, provided with pen and paper, and return-demonstrated by stating questions and able to write on paper. Pt stated he has no concerns with ADL activities, pt expresses concerns with d/c due to need of obtaining the answers he needs. Pt left end of session on EOB, good static sitting position, call light within reach and all needs met. Education OT Patient Education: Energy conservation, Progress toward Goal/Update tx plan, Purpose of tx/functional activities, Rehab process, Other (memory strategies) Teaching Recipient: Patient Teaching Methods: Demonstration, Discussion Response to Teaching: Verbalize Understanding, Return Demonstration OT Short Term Goals Short Term Goals Eating(FIM): 7 Grooming(FIM): 6 Transfers (B,C,W/C) (FIM): 5 Toilet/Commode Transfer(FIM): 4 Additional Short Term Goals: 1-Demonstrate ADL Tasks, 2-Verbalize Understanding, 3-ImproveStrength/Marek 1=Demonstrate adherence to instructed precautions during ADL tasks. 2=Patient will verbalize/demonstrate understanding of assistive devices/modifications for ADL. 3=Patient will improve strength/tolerance for activity to enable patient to perform ADL's. OT Group Home Goals Group Home Goals Time Frame: Mar 02, 2019 Eating (FIM): 7 (met) Grooming(FIM): 6 Bathing(FIM): 5 Upper Body Dressing(FIM): 5 Lower Body Dressing(FIM): 5 Toileting(FIM): 5 Transfers (B,C,W/C) (FIM): 5 Toilet/Commode Transfer(FIM): 5 Tub Transfer(FIM): 5 Additional Goals: 1-Demonstrate ADL Tasks, 2-Verbalize Understanding, 3- ImproveStrength/Marek 1=Demonstrate adherence to instructed precautions during ADL tasks. 2=Patient will verbalize/demonstrate understanding of assistive devices/modifications for ADL. 3=Patient will improve strength/tolerance for activity to enable patient to perform ADL's. OT Education/Plan Problem List/Assessment Assessment: Impaired I ADL's, Impaired Self-Care Skills Discharge Recommendations Plan/Recommendations: Continue POC Equpiment Recommendations-D/C: Rails on Tub/Shower, Bath Chair Comment Pt plans to d/c to home, with family support. Treatment Plan/Plan of Care Treatment,Training & Education: Yes Patient would benefit from OT for education, treatment and training to promote independence in ADL's, mobility, safety and/or upper extremity function for ADL's. Plan of Care: ADL Retraining, Caregiver Training, Functional Mobility, Group Exercise/Act as Ind, UE Funct Exercise/Act Treatment Duration: Mar 02, 2019 Frequency: 5 times per week Estimated Hrs Per Day: .25 hour per day Agreement: Yes Rehab Potential: Fair Time/GCodes Start Time: 11:58 Stop Time: 12:06 Total Time Billed (hr/min): 8 Billed Treatment Time 1 FA (8) COSTA CHAVIS OTR Feb 17, 2019 12:16
--- NOTE | 2019-02-17 13:25 | Cardiology Progress Note ---
Cardiology SOAP Progress Note Subjective: mild shortness of breath. Objective: I&O/Vital Signs 02/17/19 02/17/19 02/17/19 02/17/19 04:05 06:18 07:00 08:00 Temp 36.2 Pulse 107 107 Resp 18 B/P (MAP) 116/70 Pulse Ox 94 96 O2 Delivery Nasal Cannula Nasal Cannula Nasal Cannula O2 Flow Rate 6.00 6.00 3.00 02/17/19 02/17/19 02/17/19 02/17/19 08:00 10:20 12:00 14:00 Temp 36.2 36.4 Pulse 102 98 Resp 22 20 B/P (MAP) 115/77 108/74 Pulse Ox 90 96 92 90 O2 Delivery Nasal Cannula Nasal Cannula Nasal Cannula O2 Flow Rate 2.00 3.00 3.00 3.00 02/17/19 14:24 Pulse Ox 94 O2 Delivery Nasal Cannula O2 Flow Rate 6.00 02/17/19 00:00 Intake Total 1930 ml Output Total 800 ml Balance 1130 ml Weight (Pounds): 250 Weight (Ounces): 9.0 Weight (Calculated Kilograms): 113.670301 Constitutional: appears stated age, AAO x 3, well-developed, well-nourished Respiratory: chest is bilaterally symmetric, lungs clear to auscultation, other (Course breathing.) Cardiovascular: regular rate-rhythm, tachycardia, S1 and S2 Gastrointestional: soft, audible bowel sounds; No spleenomegaly Extremities: normal range of motion, non-tender, normal inspection; No clubbing, No cyanosis; no lower extremity edema bilateral; No significant edema Neurologic/Psychiatric: no motor/sensory deficits, alert, normal mood/affect, oriented x 3, power is 5/5 both on sides Skin: normal color; No rash, No ulcerations Results/Procedures: Labs Laboratory Tests 02/16/19 16:30: Glucometer 227H 02/16/19 21:02: Glucometer 214H 02/17/19 04:25: White Blood Count 3.9L, Red Blood Count 3.83L, Hemoglobin 11.5L, Hematocrit 34L, Mean Corpuscular Volume 89, Mean Corpuscular Hemoglobin 30, Mean Corpuscular Hemoglobin Concent 34, Red Cell Distribution Width 15.1H, Platelet Count 233, Mean Platelet Volume 10.7H, Neutrophils (%) (Auto) 55, Lymphocytes (%) (Auto) 28, Monocytes (%) (Auto) 16H, Eosinophils (%) (Auto) 2, Basophils (%) (Auto) 0, Neutrophils # (Auto) 2.1, Lymphocytes # (Auto) 1.1, Monocytes # (Auto) 0.6, Eosinophils # (Auto) 0.1, Basophils # (Auto) 0.0, Sodium Level 137, Potassium Level 3.6, Chloride Level 103, Carbon Dioxide Level 22, Anion Gap 12, Blood Urea Nitrogen 7, Creatinine 0.66, Estimat Glomerular Filtration Rate > 60, BUN/Creatinine Ratio 11, Glucose Level 186H, Calcium Level 8.2L, Phosphorus Level 3.9, Magnesium Level 1.6, B-Type Natriuretic Peptide 275.4H 02/17/19 05:02: Glucometer 192H 02/17/19 11:50: Glucometer 216H Microbiology 02/03/19 Blood Culture - Final, Complete No growth 02/06/19 Mycobacterial Culture - Preliminary, Resulted 02/04/19 Urine Culture - Final, Complete NO GROWTH A/P: Assessment/Dx: hemodynamically significant saddle pulmonary embolism with RV dysfunction- resolved. Plan: Hemodynamically significant large saddle pulmonary embolism with bilateral high thrombus burden. Catheter directed thrombolytics done 02/14/2019. on Eliquis. Patient has improved significantly. Normal systolic blood pressure. Heart rate 98 BPM. Oxygen saturation 94 percent on 4 L of oxygen. Patient feels much be tter. Bilateral lower extremity venous ultrasound was negative for DVT. Echocardiogram done 02/14/2019 showed hyperdynamic LV function with dilated RV and decreased RV function. Elevated PA pressure. repeat echocardiogram done 02/17/2019 showed normal LV function with improved RV size and function. PA pressure also improved. Septal flattening has also improved and only minimal during diastole. Overall significant improvement in the patient. Continue pulmonary rehabilitation. Thank you for your consultation. Please call me if you have any questions. Grey Christianson MD, FACP, FACC, FSCAI, FHRS, CCDS Interventional Cardiology Cardiac Electrophysiology Vascular Medicine and Endovascular Interventions Tyron CHRISTIANSON MD Feb 17, 2019 13:25
--- NOTE | 2019-02-17 14:00 | NUR ---
SPO2 90% ON 3 LPM. REMOVED PT FROM OXYGEN AND PLACED ON ROOM AIR. SPO2 DROPPED TO 85% AFTER 2 MINUTES. PLACED PT BACK ON OXYGEN AND WALKED FOR 4 MINUTES. 6 LPM REQUIRED TO KEEP SPO2 ABOVE 90%. Addendum: 02/17/19 at 1421 by LAINA PEPPER RT Amended: Links added.
--- NOTE | 2019-02-17 15:01 | NUR ---
CM/SS patient is discharging this day. He has a new oxygen need at 6L continous. Patient also has a need for FWW. DME preference would be for [facility]. They will deliver the portable oxygen and FWW to the patient room this day. Patient's mother will provide transportation. Patient stated that he plans to stay in [place] this night with his mother then go back to his home tomorrow. Patient provided with [employer] 30 day free trial card. Discussed that if he was staying in [place] this night that he would have to have his medications this evening. Called [facility], let them know that the patient would need oxygen supply for overnight. Asked pharmacy to have meds transmitted to [facility] so patient would have them this day locally. Addendum: 02/17/19 at 1651 by LAZARO OLMOS SS Communicated with [employer], she had contacted pharmacy for pricing of meds. Patient is able to afford the medications he is discharging on with utilizing the [employer] coupons. Patient will fill meds at [facility] in [place]. Patient's oxygen was delivered to the room.
--- NOTE | 2019-02-17 15:03 | NUR ---
CALLED [facility] AND HAD THE ELIQUIS, FLOMAX, AND CARVEDILOL TRANSFERRED TO THE [place] LOCATION FROM [place] SINCE THE PATIENT IS STAYING IN [place] WITH FAMILY PAGE. Addendum: 02/17/19 at 1551 by RISA SILVER CPhT NURSE [place] CALLED [facility] AND HAD THE DISCHARGE PRESCRIPTION FOR ELIQUIS 5MG 2 TABS BID X 7 DAYS CHANGED FROM QUANTITY #14 TO QUANTITY #28 Addendum: 02/17/19 at 1648 by RISA SILVER CPhT CALLED [facility] FOR PRICING INFORMATION FOR THE PATIENT ON HIS NEW PRESCRIPTIONS. I HAD THEM RUN THE LOADING DOSE OF ELIQUIS THROUGH THE FREE TRIAL OFFER CARD FOR $0, I THEN HELPED THE PATIENT ACTIVATE THE $10 COPAY CARD AND HAD [facility] BILL THAT FOR THE #60 SCRIPT. I UPDATED HIM ON THE PRICES AND [facility] SHOULD HAVE THEM READY WHEN HE ARRIVES. ELIQUIS 5MG #28 = $0.00 ELIQUIS 5MG #60 = $10.00 TAMSULOSIN = $1.25 CARVEDILOL = $0.49
[2019-02-17 16:00] VITALS: BP 108/74
== END 2019-02-17 17:15 | disposition home or self-care (01) | DRG 207 ==
LOC: ER FS 11:24 → ICU 14:25 → 4TH 02-12 11:29 → ICU 02-14 12:15 → 4TH 02-16 09:13
PROVIDERS: ADMIT Internal Medicine; ATTEND Family Medicine
PROC: 5A1955Z Respiratory Ventilation, Greater than 96 Consecutive Hours (ICD-10-PCS; principal; 2019-02-03)
PROC: 0BH17EZ Insertion of Endotracheal Airway into Trachea, Via Natural or Artificial Opening (ICD-10-PCS; 2019-02-03)
PROC: 0B978ZZ Drainage of Left Main Bronchus, Via Natural or Artificial Opening Endoscopic (ICD-10-PCS; 2019-02-08)
PROC: 0B938ZZ Drainage of Right Main Bronchus, Via Natural or Artificial Opening Endoscopic (ICD-10-PCS; 2019-02-08)
PROC: 4A023N7 Measurement of Cardiac Sampling and Pressure, Left Heart, Percutaneous Approach (ICD-10-PCS; 2019-02-14)
PROC: B2151ZZ Fluoroscopy of Left Heart using Low Osmolar Contrast (ICD-10-PCS; 2019-02-14)
PROC: B31S1ZZ Fluoroscopy of Right Pulmonary Artery using Low Osmolar Contrast (ICD-10-PCS; 2019-02-14)
PROC: B31T1ZZ Fluoroscopy of Left Pulmonary Artery using Low Osmolar Contrast (ICD-10-PCS; 2019-02-14)
PROC: B51B1ZZ Fluoroscopy of Right Lower Extremity Veins using Low Osmolar Contrast (ICD-10-PCS; 2019-02-14)
PROC: 3E06317 Introduction of Other Thrombolytic into Central Artery, Percutaneous Approach (ICD-10-PCS; 2019-02-14)
PROC: 3E06317 Introduction of Other Thrombolytic into Central Artery, Percutaneous Approach (ICD-10-PCS; 2019-02-14)
DX: J96.02 Acute respiratory failure with hypercapnia (principal); F10.239 Alcohol dependence with withdrawal, unspecified; I26.92 Saddle embolus of pulmonary artery without acute cor pulmonale; E87.2 Acidosis; K56.7 Ileus, unspecified; J69.0 Pneumonitis due to inhalation of food and vomit; E72.20 Disorder of urea cycle metabolism, unspecified; R44.0 Auditory hallucinations; R56.9 Unspecified convulsions; I95.9 Hypotension, unspecified; E87.6 Hypokalemia; E83.42 Hypomagnesemia; R00.0 Tachycardia, unspecified; E11.9 Type 2 diabetes mellitus without complications; F41.9 Anxiety disorder, unspecified; K70.10 Alcoholic hepatitis without ascites; D69.6 Thrombocytopenia, unspecified; R31.9 Hematuria, unspecified; R44.1 Visual hallucinations; E83.39 Other disorders of phosphorus metabolism; D64.9 Anemia, unspecified; Z87.891 Personal history of nicotine dependence
CPT/HCPCS: 31500; 36415; 36569; 36600; 37211; 51702; 70450; 71045; 71260; 71275; 74177; 76937; 80048; 80053; 80074; 80076; 80202; 80320; 81000; 82040; 82140; 82150; 82330; 82550; 82553; 82805; 82962; 83605; 83690; 83735; 83880; 84100; 84478; 84484; 85007; 85025; 85027; 85379; 85610; 85730; 86703; 87015; 87040; 87070; 87077; 87081; 87088; 87101; 87116; 87186; 87205; 87206; 88112; 88305; 93005; 93306; 93451; 93566; 93970; 94002; 94003; 94640; 94664; 94760; 94761; 94799; 96361; 96365; 96375; 96376; 99291

== ENCOUNTER 2019-04-22 12:48 | Outpatient (CLI) | payer BC ==
[~2019-04-22 12:48] MED LIST changes: -RT-ALBUTEROL SULF 2.5 MG/3 ML PRE-MIX VIAL INH ONE
== END 2019-04-22 14:30 | disposition home or self-care (01) ==
LOC: SLEEP 12:48
PROVIDERS: ATTEND Nurse Practitioner Family
DX: G47.10 Hypersomnia, unspecified (principal)

== ENCOUNTER → 2019-04-22 | Outpatient (CLI) | payer BC ==
[~2019-04-22] MED LIST changes: +ACET-2267 PO; +AMLO-167 PO; +APIX5TAB PO; +ASPI-983 PO; +ATOR40TA70 PO; +CARV12.53 PO; +CARV3.122 PO; +CITA40TA11 PO; +CYAN-41 PO; +DAPA10TA PO; -ETOMIDATE IV SOLN 20 MG/10 ML VIAL IV ONE; +FISH1CAP15 PO; +FLUT9.9S NS; +HYDR25TA4 PO; +IBUP-30 PO; +INSU100I14 SC; +INSU100I14 SQ; +INSU100I34 SC; +LEVO5TAB12 PO; +METF-399 PO; -MIDAZOLAM 5 MG/5 ML (VERSED) VIAL IJ ONE; +MONT10TA24 PO; +NAPH15DR62 OU; +OMEP20CA13 PO; +POTA99TA21 PO; +RT-ALBUTEROL SULF 2.5 MG/3 ML PRE-MIX VIAL INH ONE; +SODI30SP2 NS; -SUCCINYLCHOLINE INJ 100 MG/5 ML SYR INJ ONE; +TADA20TA43 PO; +TAMS0.4C98 PO
== END ==
LOC: RT 12:51
PROVIDERS: ATTEND Nurse Practitioner Family
DX: I26.99 Other pulmonary embolism without acute cor pulmonale (principal)
CPT/HCPCS: 94060; 94726; 94729

== ENCOUNTER → 2019-05-11 | Outpatient (CLI) | payer BC ==
[~2019-05-11] VITALS: Ht 185 cm; Wt 105.0 kg
[~2019-05-11] MED LIST changes: +CATHETER FLUSH 10 ML SYR IV PRN; +CHOL400T PO; +CYCL10TA9 PO; +POTA99TA18 PO; +PYRI25TA3 PO; +REGADENOSON 0.4 MG/5 ML SYR (LEXISCAN) IV ONE; +RIVA20TA PO; +RIVA20TA2 PO; +RT-ALBUINH IH; +TRAM50TA2 PO
[2019-05-11 09:31] VITALS: BP 133/79
[2019-05-11 09:33] VITALS: BP 154/91
--- NOTE | 2019-05-11 15:44 | STRESS TEST ---
DATE OF SERVICE: 05/11/2019 LEXISCAN MYOVIEW STRESS TEST REPORT REFERRING PHYSICIAN: Dr. Edil Silvestre. Baseline heart rate is 98. Baseline blood pressure 133/79. Baseline EKG is sinus rhythm with right bundle branch block. In summary, the patient was injected with 10.36 mCi of technetium-99 Myoview and the resting images were obtained. Then, the patient received 0.4 mg of Lexiscan followed by 28.8 mCi of technetium-99 Myoview. Throughout the test, there were no EKG changes. The resting and stress images were reviewed and compared in the short axis, horizontal long axis, and vertical long axis views. Review of the images showed mild decreased uptake at the mid to apical anterior wall with mild reversibility. SSS is 6, SDS 6, TID value 0.86. On the gated images, the left ventricle appeared to be normal size with normal contractility. Calculated ejection fraction 63%. CONCLUSION: 1. The patient tolerated Lexiscan well. 2. Mild ischemia involving the mid to apical anterior wall and anterior septum. 3. Normal left ventricular size with normal contractility. Calculated ejection fraction 63%. Job ID: [id number] DocumentID: [id number] Dictated Date: 05/11/2019 13:23:33 Pattern Mechanic Date: 05/11/2019 15:44:00 Dictated By: EUGENIO REYNA MD
== END ==
LOC: CARD 07:21
PROVIDERS: ATTEND Internal Medicine Cardiovascular Disease
DX: I11.9 Hypertensive heart disease without heart failure (principal); E11.9 Type 2 diabetes mellitus without complications; I25.89 Other forms of chronic ischemic heart disease
CPT/HCPCS: 78452; 93017; 93306

== ENCOUNTER → 2020-11-30 | Outpatient (CLI) | payer BC ==
[~2020-11-30] MED LIST changes: +ASPI-1238 PO; -ASPI-983 PO; -CATHETER FLUSH 10 ML SYR IV PRN; -MONT10TA24 PO; +MONT10TA32 PO; -OMEP20CA13 PO; +OMEP20CA18 PO; -REGADENOSON 0.4 MG/5 ML SYR (LEXISCAN) IV ONE; -TAMS0.4C98 PO; +TMSL.4C PO; -TRAM50TA2 PO; +TRM50T PO
== END ==
LOC: CARD 10:30
PROVIDERS: ATTEND Internal Medicine Cardiovascular Disease
DX: I10 Essential (primary) hypertension (principal); I25.10 Atherosclerotic heart disease of native coronary artery without angina pectoris
CPT/HCPCS: 93306